=== PATIENT | male | born 1960 | race Caucasian/White ===

== ENCOUNTER 2019-05-21 21:00 | Emergency (ER) | payer OTHER ==
[2019-05-21 22:19] LABS: Basophils % 0.4 % (0-1.3); Lymphocytes % 33.5 % (15.3-44.8); MPV 12.1 fL (7.6-11.3); RBC Red Blood Cell Count 4.25 M/uL (4.33-5.43)
[2019-05-21 22:34] LABS: Potassium 4.3 mmol/L (3.5-5.1)
[2019-05-21] MEDS ORDERED: levoFLOXacin 750 MG TAB ONE (23:49)
--- NOTE | 2019-05-22 00:01 | EDPHYS ---
Physician Documentation [facility] Name: Jordon Smith Age: 59 yrs Sex: Male : 1960 Arrival Date: 05/21/2019 Time: 21:03 Bed 30 Private MD: ED Physician Jefry Juarez HPI: 05/22 02:32 This 59 yrs old Male presents to ER via Ambulatory with complaints of Foot gs Swelling-Diabetic. 02:32 The patient presents with swelling. The complaints affect the dorsum of right foot. gs Onset: The symptoms/episode began/occurred gradually, 5 day(s) ago. Modifying factors: the symptoms are aggravated by nothing. Associated signs and symptoms: Pertinent positives: warmth, Pertinent negatives fever. Severity of symptoms: At their worst the symptoms were mild, in the emergency department the symptoms are unchanged. small callous ulcer r great toe no drainage. Historical: - Allergies: 05/21 21:12 No Known Allergies; la1 - PMHx: 21:12 Diabetes - NIDDM; Hypertension; la1 - Immunization history:: Adult Immunizations up to date. - Social history:: Smoking status: Patient uses tobacco products, smokes one-half pack cigarettes per day. - Ebola Screening: : No symptoms or risks identified at this time. ROS: 05/22 02:32 All other systems are negative. gs Exam: 02:32 Head/Face: Normocephalic, atraumatic. Eyes: Pupils equal round and reactive to light, gs extra-ocular motions intact. Lids and lashes normal. Conjunctiva and sclera are non-icteric and not injected. Cornea within normal limits. Periorbital areas with no swelling, redness, or edema. ENT: Nares patent. No nasal discharge, no septal abnormalities noted. Tympanic membranes are normal and external auditory canals are clear. Oropharynx with no redness, swelling, or masses, exudates, or evidence of obstruction, uvula midline. Mucous membranes moist. Neck: Trachea midline, no thyromegaly or masses palpated, and no cervical lymphadenopathy. Supple, full range of motion without nuchal rigidity, or vertebral point tenderness. No Meningismus. Chest/axilla: Normal chest wall appearance and motion. Nontender with no deformity. No lesions are appreciated. Cardiovascular: Regular rate and rhythm with a normal S1 and S2. No gallops, murmurs, or rubs. Normal PMI, no JVD. No pulse deficits. Respiratory: Lungs have equal breath sounds bilaterally, clear to auscultation and percussion. No rales, rhonchi or wheezes noted. No increased work of breathing, no retractions or nasal flaring. Abdomen/GI: Soft, non-tender, with normal bowel sounds. No distension or tympany. No guarding or rebound. No evidence of tenderness throughout. Back: No spinal tenderness. No costovertebral tenderness. Full range of motion. MS/ Extremity: Pulses equal, no cyanosis. Neurovascular intact. Full, normal range of motion. Neuro: Awake and alert, GCS 15, oriented to person, place, time, and situation. Cranial nerves II-XII grossly intact. Motor strength 5/5 in all extremities. Sensory grossly intact. Cerebellar exam normal. Normal gait. 02:32 Constitutional: The patient appears alert, awake. 02:32 Musculoskeletal/extremity: Extremities: noted in the anterior aspect of right ankle: swelling, noted in the plantar aspect of right first toe: small callous and ulcer no drainage, Circulation is intact in all extremities. 02:32 Skin: cellulitis, that is minimal, on the anterior aspect of right ankle and dorsum of right foot. Vital Signs: 05/21 21:12 BP 117 / 59; Pulse 89; Resp 16; Temp 97.4; Pulse Ox 98% on R/A; Weight 102.06 kg; la1 Height 6 ft. 0 in. (182.88 cm); 22:52 BP 106 / 65; Pulse 91; Resp 18; Pulse Ox 100% ; ad1 23:55 BP 109 / 61; Pulse 77; Resp 16; Pulse Ox 99% ; ad1 21:12 Body Mass Index 30.52 (102.06 kg, 182.88 cm) la1 MDM: 21:52 Patient medically screened. 05/22 02:32 Differential diagnosis: cellulitis,osteo,diabetic ulcer. Data reviewed: vital signs, gs nurses notes. Data reviewed: lab test result(s), radiologic studies. Counseling: I had a detailed discussion with the patient and/or guardian regarding: the historical points, exam findings, and any diagnostic results supporting the discharge/admit diagnosis, the need for outpatient follow up. Response to treatment: the patient's symptoms have mildly improved after treatment, and as a result, I will discharge patient. 05/21 21:52 Order name: CBC with Diff 05/21 21:52 Order name: Basic Metabolic Panel; Complete Time: 23:25 gs 05/21 21:52 Order name: Blood Culture* gs 05/21 21:52 Order name: Foot Right 3 View XRAY gs 05/21 21:56 Order name: CBC with Automated Diff; Complete Time: 23:25 EDMS 05/21 23:59 Order name: Wound dressing; Complete Time: 00:28 Administered Medications: 05/21 23:55 Drug: LevaQUIN 750 mg Route: PO; ad1 05/22 00:32 Follow up: Response: No adverse reaction ad1 Disposition: 05/21/19 23:58 Discharged to Home. Impression: Type 2 diabetes mellitus with foot ulcer, Cellulitis, unspecified. - Condition is Stable. - Discharge Instructions: Cellulitis, Adult, Type 2 Diabetes Mellitus, Diagnosis, Adult, Diabetes and Foot Care. - Prescriptions for Keflex 500 mg Oral Capsule - take 1 capsule by ORAL route every 12 hours for 7 days; 14 capsule. Levaquin 500 mg Oral Tablet - take 1 tablet by ORAL route once daily for 7 days; 7 tablet. - Work release form, Medication Reconciliation Form, Thank You Letter, Antibiotic Education, Prescription Opioid Use form. - Follow up: Private Physician; When: 1 - 2 days; Reason: Re-evaluation by your physician. Follow up: Jose Logan DPM; When: 2 - 3 days; Reason: Re-evaluation by your physician. Signatures: Dispatcher [employer] EDMS Olga Tellez RN RN ad1 Barry Cervantes RN RN la1 Jefry Juarez MD MD Corrections: (The following items were deleted from the chart) 00:35 05/21 23:58 05/21/2019 23:58 Discharged to Home. Impression: Type 2 diabetes mellitus ad1 with foot ulcer; Cellulitis, unspecified. Condition is Stable. Forms are Medication Reconciliation Form, Thank You Letter, Antibiotic Education, Prescription Opioid Use. Follow up: Private Physician; When: 1 - 2 days; Reason: Re-evaluation by your physician. Follow up: Jose Logan; When: 2 - 3 days; Reason: Re-evaluation by your physician.
--- NOTE | 2019-05-22 00:01 | ER ---
Nurse's Notes [facility] Name: Jordon Smith Age: 59 yrs Sex: Male : 1960 Arrival Date: 05/21/2019 Time: 21:03 Bed 30 Private MD: Diagnosis: Type 2 diabetes mellitus with foot ulcer;Cellulitis, unspecified Presentation: 05/21 21:12 Presenting complaint: Patient states: Area of redness and swelling to my right big toe la1 for the last week, worse the last couple days. Transition of care: patient was not received from another setting of care. Onset of symptoms was May 21, 2019. Risk Assessment: Do you want to hurt yourself or someone else? Patient reports no desire to harm self or others. Initial Sepsis Screen: Does the patient meet any 2 criteria? No. Patient's initial sepsis screen is negative. Does the patient have a suspected source of infection? No. Patient's initial sepsis screen is negative. Care prior to arrival: None. 21:12 Method Of Arrival: Ambulatory la1 21:12 Acuity: ADRY 3 la1 Historical: - Allergies: 21:12 No Known Allergies; la1 - PMHx: 21:12 Diabetes - NIDDM; Hypertension; la1 - Immunization history:: Adult Immunizations up to date. - Social history:: Smoking status: Patient uses tobacco products, smokes one-half pack cigarettes per day. - Ebola Screening: : No symptoms or risks identified at this time. Screenin:48 Abuse screen: Denies threats or abuse. Nutritional screening: No deficits noted. la1 Tuberculosis screening: No symptoms or risk factors identified. Fall Risk None identified. Assessment: 22:47 General: Appears in no apparent distress. Behavior is calm, cooperative. Pain: la1 Complains of pain in instep of right foot and medial aspect of right toes. Neuro: Level of Consciousness is awake, alert, obeys commands, Oriented to person, place, time, situation. Cardiovascular: Capillary refill < 3 seconds Patient's skin is warm and dry. Respiratory: Airway is patent Respiratory effort is even, unlabored, Respiratory pattern is regular, symmetrical. GI: No signs and/or symptoms were reported involving the gastrointestinal system. : No signs and/or symptoms were reported regarding the genitourinary system. Derm: redness noted to medial aspect of right great toe extending to medial aspect of foot. 23:55 Reassessment: Patient appears in no apparent distress at this time. No changes from ad1 previously documented assessment. Patient and/or family updated on plan of care and expected duration. Pain level reassessed. Patient is alert, oriented x 3, equal unlabored respirations, skin warm/dry/pink. Vital Signs: 21:12 BP 117 / 59; Pulse 89; Resp 16; Temp 97.4; Pulse Ox 98% on R/A; Weight 102.06 kg; la1 Height 6 ft. 0 in. (182.88 cm); 22:52 BP 106 / 65; Pulse 91; Resp 18; Pulse Ox 100% ; ad1 23:55 BP 109 / 61; Pulse 77; Resp 16; Pulse Ox 99% ; ad1 21:12 Body Mass Index 30.52 (102.06 kg, 182.88 cm) la1 ED Course: 21:03 Patient arrived in ED. ds1 21:12 Arm band placed on right wrist. la1 21:13 Triage completed. la1 21:27 Jefry Juarez MD is Attending Physician. gs 22:15 Inserted saline lock: 20 gauge in left antecubital area, using aseptic technique. Blood la1 collected. 22:30 Second set of blood cultures drawn by me. jp3 22:49 Call light in reach. la1 23:54 Jose Logan DPM is Referral Physician. 05/22 00:32 No provider procedures requiring assistance completed. IV discontinued, intact, ad1 bleeding controlled, No redness/swelling at site. Pressure dressing applied. Administered Medications: 05/21 23:55 Drug: LevaQUIN 750 mg Route: PO; ad1 05/22 00:32 Follow up: Response: No adverse reaction ad1 Outcome: 05/21 23:58 Discharge ordered by . 05/22 00:33 Discharged to home ambulatory. ad1 Condition: stable Discharge instructions given to patient, Instructed on discharge instructions, follow up and referral plans. medication usage, Demonstrated understanding of instructions, follow-up care, medications, wound care, Prescriptions given X 2. 00:35 Patient left the ED. ad1 Signatures: Martha Garcia ds1 Olga Tellez RN RN ad1 Barry Cervantes RN RN la1 Juarez, Jefry, MD MD gs Pisarski, Amrio jp3
--- NOTE | 2019-05-22 09:13 | RAD REPORT ---
EXAM DESCRIPTION: RAD - Foot Right 3 View - 05/21/2019 10:28 pm CLINICAL HISTORY: Right foot pain, pain and swelling near the first toe COMPARISON: None. FINDINGS: No fracture, dislocation or periosteal reaction. IP joint degenerative changes are present . There is degenerative change at the first MTP joint as well. Patient has a large plantar spur. Wound is present along the medial and plantar surface of the first toe near the IP joint. The degener ative changes present do not include an the erosive or destructive component. No radiographic evidenc e for osteomyelitis. Degenerative changes are present minimally in the midfoot. No air or foreign body in the soft tissues. IMPRESSION: No abnormal air or foreign body seen at the soft tissue wound near the IP joint of the f irst toe. IP joint degenerative change present at the first toe and elsewhere in the phalanges. No bone destruction to suggest osteomyelitis. Bone infection can exist prior to radiographic evidence of destruction.
== END 2019-05-22 00:35 | disposition home or self-care (01) ==
LOC: ER 21:00
DX: L03.115 Cellulitis of right lower limb (principal); I10 Essential (primary) hypertension; F17.210 Nicotine dependence, cigarettes, uncomplicated
CPT/HCPCS: 36415; 80048; 85025; 87040; 99284

== ENCOUNTER 2021-03-10 09:31 | Emergency (ER) | payer OTHER ==
[2021-03-10] MEDS ORDERED: MORPHINE 4 MG/ML SYR ONE ×2 (10:47→14:20)
[2021-03-10] MEDS ORDERED: ONDANSETRON 4 MG (ODT) TAB ONE (10:47)
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
--- NOTE | 2021-03-10 10:56 | RAD REPORT ---
EXAM DESCRIPTION: RAD - Wrist Left 3 View - 03/10/2021 10:40 am CLINICAL HISTORY: fall COMPARISON: No comparisons FINDINGS: Lateral view shows a small 5 mm fracture fragment along the dorsal margin of the carpal vidal jaylin. This is a typical appearance for a triquetrum fracture. No other fracture changes are seen. Ther e is no dislocation or periosteal reaction. No pathologic bone changes seen. Soft tissue swelling is present over the hand and wrist. No foreign body IMPRESSION: Small 5 mm triquetrum fracture fragment seen dorsal margin of the carpal bones.
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
--- NOTE | 2021-03-10 14:09 | EDPHYS ---
Physician Documentation [facility] Name: Jordon Smith Age: 60 yrs Sex: Male : 1960 Arrival Date: 03/10/2021 Time: 09:35 Bed 19 Private MD: ED Physician Ra Merino HPI: 03/10 10:06 This 60 yrs old Male presents to ER via Ambulatory with complaints of Fall jmm Injury, Shoulder Injury, Wrist Injury. 10:06 Details of fall: The patient fell from seated position, gator utility vehicle. Onset: jmm The symptoms/episode began/occurred acutely, 2 day(s) ago. The patient has not experienced similar symptoms in the past. This is a 60 year old male with a history of DM, HTN, that presents to the ED with complaints of left shoulder, elbow, wrist pain, and right hip pain. Patient states he fell off a utility vehicle. A speaker then fell on his right hip. Patient states he hit his head, but denies loc, vomiting, or neck pain. Historical: - Allergies: 09:53 No Known Allergies; hb - PMHx: 09:53 Diabetes - NIDDM; Hypertension; hb ROS: 10:06 Constitutional: Negative for fever, chills, and weight loss, Cardiovascular: Negative jmm for chest pain, palpitations, and edema, Respiratory: Negative for shortness of breath, cough, wheezing, and pleuritic chest pain. 10:06 MS/extremity: Positive for injury or acute deformity. 10:06 All other systems are negative. Exam: 10:06 Constitutional: This is a well developed, well nourished patient who is awake, alert, jmm and in no acute distress. Head/Face: atraumatic. Eyes: EOMI, no conjunctival erythema appreciated ENT: Moist Mucus Membranes 10:06 Neck: C-spine: appears grossly normal. 10:14 Neck: Trachea midline, Supple Chest/axilla: Normal chest wall appearance and motion. jmm Cardiovascular: Regular rate and rhythm. 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 right hip ttp, painful flexion. 10:14 Skin: Appearance: Color: normal in color. 10:14 Neuro: Orientation: is normal, Mentation: is normal, Memory: is normal. 10:14 Psych: Behavior/mood is pleasant, cooperative. Vital Signs: 09:49 BP 139 / 96; Pulse 113; Resp 16; Temp 97.8; Pulse Ox 100% on R/A; Weight 104.33 kg; hb Height 6 ft. (182.88 cm); Pain 9/10; 13:34 BP 143 / 77; Pulse 104; Resp 19; Pulse Ox 99% ; rb3 14:20 BP 139 / 79; Pulse 89; Resp 19; Pulse Ox 99% ; rb3 09:49 Body Mass Index 31.19 (104.33 kg, 182.88 cm) hb Debi Coma Score: 10:00 Eye Response: spontaneous(4). Verbal Response: oriented(5). Motor Response: obeys rb3 commands(6). Total: 15. Trauma Score (Adult): 10:00 Eye Response: spontaneous(1); Verbal Response: oriented(1); Motor Response: obeys rb3 commands(2); Systolic BP: > 89 mm Hg(4); Respiratory Rate: 10 to 29 per min(4); [place] Score: 15; Trauma Score: 12 Procedures: 13:43 Splinting: Splint applied to left arm using sling, sugartong. applied by tech. Examined jm by me, post splint application: neurovascular intact, 2+ distal pulses palpable, brisk capillary refill noted, Patient tolerated well. MDM: 10:14 Patient medically screened. [facility] 14:02 Data reviewed: vital signs, nurses notes. ED course: NARX score = 110. [facility] 03/10 10:06 Order name: Chest Single View XRAY; Complete Time: 11: [facility] 03/10 10:06 Order name: Shoulder Left (2 View) XRAY; Complete Time: 11: [facility] 03/10 10:06 Order name: Elbow Left 3 View XRAY; Complete Time: 11: [facility] 03/10 10:06 Order name: Wrist Left (3 View) XRAY; Complete Time: 11: [facility] 03/10 10:06 Order name: Pelvis XRAY; Complete Time: 11: [facility] 03/10 10:06 Order name: Hip Right 2 View XRAY; Complete Time: 11:07 [facility] 03/10 11:11 Order name: Misc. Order: wound care; Complete Time: 13:36 [facility] 03/10 11:43 Order name: Misc. Order: abx ointment, wet to dry; Complete Time: 13:36 [facility] 03/10 11:43 Order name: Sugar Tong Forearm Splint; Complete Time: 13:35 [facility] 03/10 12:38 Order name: Sling; Complete Time: 13:35 [facility] Administered Medications: 10:58 Drug: morphine 4 mg Route: IM; Site: right deltoid; rb3 11:30 Follow up: Response: No adverse reaction; Pain is decreased rb3 10:58 Drug: Ondansetron 4 mg Route: PO; rb3 11:12 Follow up: Response: No adverse reaction rb3 14:03 Drug: morphine 4 mg Route: IM; Site: right deltoid; rb3 Disposition: 03/11 07:23 Co-signature as Attending Physician, Ra Merino MD I agree with the assessment and kiarra plan of care. Disposition: 03/10/21 14:08 Discharged to Home. Impression: Radial Head Fracture, Left Elbow Abrasion, Nondisplaced fracture of triquetrum [cuneiform] bone, left wrist. - Condition is Stable. - Discharge Instructions: Abrasion, Radial Head Fracture, Wrist Fracture Treated With Immobilization, [id number]. - Prescriptions for Tylenol- Codeine #3 300-30 mg Oral Tablet - take 1 tablet by ORAL route every 4-6 hours As needed; 20 tablet. Bactrim DS 800- 160 mg Oral Tablet - take 1 tablet by ORAL route every 12 hours for 10 days; 20 tablet. - Medication Reconciliation Form, Thank You Letter, Antibiotic Education, Prescription Opioid Use form. - Follow up: Private Physician; When: 2 - 3 days; Reason: Recheck today's complaints, Continuance of care, Re-evaluation by your physician. Signatures: Dispatcher [employer] Ra De MD MD cha Mickail, Joel, PA PA jmm Baxter, Heather, RN RN hb Barber, Rebecca, RN RN rb3 Corrections: (The following items were deleted from the chart) 05/30 14:33 14:08 03/10/2021 14:08 Discharged to Home. Impression: Radial Head Fracture; Left Elbow rb3 Abrasion; Nondisplaced fracture of triquetrum [cuneiform] bone, left wrist. Condition is Stable. Forms are Medication Reconciliation Form, Thank You Letter, Antibiotic Education, Prescription Opioid Use. Follow up: Private Physician; When: 2 - 3 days; Reason: Recheck today's complaints, Continuance of care, Re-evaluation by your physician. riccardo
[2021-03-10 14:38] VITALS: TEMP 97.8
[2021-03-10 14:39] VITALS: BP 143/77; O2SAT 99
== END 2021-03-10 14:33 | disposition home or self-care (01) ==
LOC: ER 09:31
PROC: 2W3DX1Z Immobilization of Left Lower Arm using Splint (ICD-10-PCS; principal; 2021-03-10)
DX: S52.122A Displaced fracture of head of left radius, initial encounter for closed fracture (principal); S62.115A Nondisplaced fracture of triquetrum [cuneiform] bone, left wrist, initial encounter for closed fracture; V87.8XXA Person injured in other specified noncollision transport accidents involving motor vehicle (traffic), initial encounter; I10 Essential (primary) hypertension
CPT/HCPCS: 71045; 72170; 96372; 99284

== ENCOUNTER 2022-08-30 10:15 | Observation (INO) | payer BC, SELFPAY ==
[2022-08-30] MEDS ORDERED: NITROGLYCERIN 0.4 MG/TAB SL ONE (10:34)
[2022-08-30 10:51] LABS: Absolute Lymphocytes (CBC) 1.6 K/uL (0.7-4.9); Hematocrit 36.8 % (39.6-49.0); Lymphocytes % 18.7 % (15.3-44.8); MCV 106.7 fL (80-100); MPV 10.3 fL (7.6-11.3); RBC Red Blood Cell Count 3.45 M/uL (4.33-5.43)
[2022-08-30] MEDS ORDERED: FENTANYL CITR 100 MCG/2 ML ONE (10:52)
[2022-08-30 10:59] LABS: Potassium 4.1 mmol/L (3.5-5.1); Troponin High Sensitivity 6.9 pg/mL (<58.9)
[2022-08-30 12:04] LABS: Platelet Estimate ADEQ; White Blood Cell Scan OK (OK)
[2022-08-30 12:05] LABS: Anisocytosis 1+; Blood Morphology Comment NOTED (NOT SEEN); Hypochromasia 1+; Macrocytosis 1+
[2022-08-30 12:06] LABS: Stomatocytes 1+
--- NOTE | 2022-08-30 12:43 | RAD REPORT ---
EXAM DESCRIPTION: CT - Chest For Pe Angio - 08/30/2022 12:04 pm CLINICAL HISTORY: Chest pain COMPARISON: 2020 TECHNIQUE: Dynamically enhanced axial 3 mm thick images of the chest were obtained during administra tion of <100> mL Isovue 370 IV contrast. Coronal and oblique reconstruction images were generated and reviewed. Exam utilizes a protocol for optimal evaluation of pulmonary arterial tree. Maximum intensity projections 3D imaging was utilized All CT scans are performed using dose optimization technique as appropriate and may include automated exposure control or mA/KV adjustment according to patient size. FINDINGS: A pulmonary embolus is not seen. A thoracic aortic aneurysm is not noted. A pleural effusion is not seen. A pericardial effusion is not seen. Mildly displaced fracture anterior left seventh rib. Nondisplaced fracture left eighth rib. Mildly di splaced fracture left lateral ninth rib. Moderate displace fracture left posterior tenth rib. Nondisp laced fracture posterior right tenth rib No pneumothorax. 8 millimeter right lower lobe nodule unchanged. 5 millimeter right lower lobe nodule is unchanged. A 7 millimeter right lower lobe calcified nodule IMPRESSION: Negative for a pulmonary embolism. Multiple left rib fractures. Most are subacute. The moderately displaced fracture tenth posterior lef t rib may be acute Stable right lung nodules. Follow-up CT chest in 6 months recommended
--- NOTE | 2022-08-30 12:46 | RAD REPORT ---
EXAM DESCRIPTION: CT - Abdomen Wo Contrast - 08/30/2022 12:04 pm CLINICAL HISTORY: Abdominal pain COMPARISON: 2020 TECHNIQUE: Computed axial tomography from the diaphragm to the iliac crest was obtained. Oral contra st was given. IV contrast was not requested. All CT scans are performed using dose optimization technique as appropriate and may include automated exposure control or mA/KV adjustment according to patient size. FINDINGS: The evaluation of solid organs and vessels is limited secondary to the lack of IV contrast administration. Fatty liver. Cirrhosis is suspected. Cholelithiasis. Gallbladder wall not thickened The spleen, pancreas, adrenals and kidneys are unremarkable. No ascites. No ascites is seen. The visualized bowel caliber and wall thickness is normal IMPRESSION: Cholelithiasis Fatty liver. Cirrhosis suspected
--- NOTE | 2022-08-30 12:55 | RAD REPORT ---
EXAM DESCRIPTION: [facility] Single View08/30/2022 12:15 pm CLINICAL HISTORY: Chest pain COMPARISON: 2020 FINDINGS: Patient's known left rib fractures are not clearly visualized on this examination. The lungs appear clear of acute infiltrate. The heart is normal size
--- NOTE | 2022-08-30 14:46 | ER ---
Nurse's Notes [facility] Name: Jordon Smith Age: 62 yrs Sex: Male : 1960 Arrival Date: 08/30/2022 Time: 10:16 Bed 7 Private MD: Diagnosis: Chest pain, unspecified Presentation: 08/30 10:35 Chief complaint: Patient states: bilateral chest pain started at 0430 this morning. Pt mb9 states it radiates to jaw and back and "hurts when I breathe". Coronavirus screen: Client denies travel out of the [place] in the last 14 days. Ebola Screen: No symptoms or risks identified at this time. Initial Sepsis Screen: Does the patient meet any 2 criteria? No. Patient's initial sepsis screen is negative. Does the patient have a suspected source of infection? No. Patient's initial sepsis screen is negative. Risk Assessment: Do you want to hurt yourself or someone else? Patient reports no desire to harm self or others. Onset of symptoms was August 30, 2022. 10:35 Method Of Arrival: Ambulatory mb9 10:35 Acuity: ADRY 2 mb9 Historical: - Allergies: 10:37 No Known Allergies; mb9 - Home Meds: 11:10 metformin 750 mg Oral Tb24 twice a day [Active]; losartan 100 mg oral tab 1 tab once aa5 daily [Active]; furosemide 40 mg Oral tab 1 tab once daily [Active]; pantoprazole 40 mg oral grps 1 packet once daily [Active]; escitalopram oxalate 20 mg oral tab 1 tab once daily [Active]; alprazolam 1 mg Oral Tb24 1 tab once daily [Active]; tramadol 50 mg oral tab PRN [Active]; rifampin 300 mg Oral cap 2 times per day [Active]; multivitamin oral [Active]; aspirin 81 mg Oral cap 1 cap once daily [Active]; - PMHx: 10:37 Diabetes - NIDDM; Hypertension; Seizure; cardiac arrest; Depressive disorder; mb9 - PSHx: 10:37 Tonsillectomy; left hip; prostatectomy; mb9 - Immunization history:: Adult Immunizations up to date. - Social history:: Smoking status: Patient reports the use of cigarette tobacco products, smokes one pack cigarettes per day. Patient uses alcohol, on a daily basis. - Family history:: not pertinent. Screenin:20 Abuse screen: Denies threats or abuse. Nutritional screening: No deficits noted. mb9 Tuberculosis screening: No symptoms or risk factors identified. Fall Risk None identified. Assessment: 10:47 General: Appears uncomfortable, Behavior is calm, cooperative, appropriate for age. mb9 Pain: Complains of pain in back and chest and jaw Pain radiates to back and jaw Pain currently is 9 out of 10 on a pain scale. Quality of pain is described as stabbing, Pain began suddenly, Aggravated by increased activity. Neuro: Whittaker Agitation-Sedation Scale (RASS): 0 - Alert and Calm Level of Consciousness is awake, alert, obeys commands, Oriented to person, place, time, situation, Appropriate for age. Cardiovascular: Reports chest pain, shortness of breath, Heart tones S1 S2 present Rhythm is sinus tachycardia. Respiratory: Airway is patent Respiratory effort is even, unlabored, Respiratory pattern is regular, symmetrical, Breath sounds are clear bilaterally. GI: Abdomen is round Bowel sounds present X 4 quads. Abd is soft and non tender X 4 quads. Reports lower abdominal pain, nausea. : No signs and/or symptoms were reported regarding the genitourinary system. EENT: No signs and/or symptoms were reported regarding the EENT system. Derm: Skin is intact, Skin is dry, Skin is pale, Skin temperature is cool. Musculoskeletal: Range of motion: intact in all extremities. 11:35 General: Appears in no apparent distress. comfortable, Behavior is calm, cooperative, mb9 appropriate for age. Pain: Denies pain. Neuro: Level of Consciousness is awake, alert, obeys commands, Oriented to person, place, time, situation, Appropriate for age. Cardiovascular: Rhythm is sinus tachycardia. Respiratory: Airway is patent. Derm: Skin is pink, warm \\T\\ dry. 12:13 Reassessment: Dr. Serrano notified. Pain: Pain currently is 9 out of 10 on a pain mb9 scale. Quality of pain is described as stabbing. 13:30 Reassessment: No changes from previously documented assessment. mb9 14:54 General: Appears in no apparent distress. comfortable, Behavior is calm, cooperative, mb9 appropriate for age. Pain: Complains of pain in chest. Neuro: Level of Consciousness is awake, alert, obeys commands, Oriented to person, place, time, situation, Appropriate for age. Cardiovascular: Rhythm is sinus tachycardia. Respiratory: Airway is patent. GI: Reports diarrhea. 16:34 General: Appears in no apparent distress. comfortable, Behavior is calm, cooperative, mb9 appropriate for age. Pain: Complains of pain in chest. Neuro: Level of Consciousness is awake, alert, obeys commands. Cardiovascular: Rhythm is sinus tachycardia. Respiratory: Airway is patent Respiratory effort is even, unlabored, Respiratory pattern is regular, symmetrical. 16:34 Neuro: Reports headache. mb9 16:34 GI: Reports diarrhea. mb9 16:52 Reassessment: report given to admitting nurse SUPRIYA Roger. mb9 Vital Signs: 10:35 BP 140 / 71; Pulse 122; Resp 15; Temp 97.8(O); Pulse Ox 100% on R/A; Weight 97.07 kg; mb9 Height 6 ft. 0 in. (182.88 cm); Pain 9/10; 10:44 BP 94 / 56; Pulse 127; Resp 16; Pulse Ox 100% on R/A; mb9 11:34 BP 101 / 65; Pulse 119; Resp 22; Pulse Ox 100% on R/A; mb9 13:03 BP 109 / 61; Pulse 113; Resp 24; Pulse Ox 100% ; mb9 14:41 BP 101 / 54; Pulse 107; Resp 20; Pulse Ox 98% on R/A; mb9 16:36 BP 108 / 51; Pulse 112; Resp 20; Pulse Ox 100% on R/A; mb9 10:35 Body Mass Index 29.02 (97.07 kg, 182.88 cm) mb9 ED Course: 10:16 Patient arrived in ED. as 10:18 Brian Serrano MD is Attending Physician. rt 10:19 Beatriz Paredes RN is Primary Nurse. mb9 10:20 Arm band placed on. mb9 10:20 Placed in gown. Bed in low position. Call light in reach. Side rails up X 1. Client mb9 placed on continuous cardiac and pulse oximetry monitoring. NIBP monitoring applied. traffic monitor specialist on. 10:30 EKG done, by ED staff, reviewed by Brian Serrano MD. mb9 10:32 Initial lab(s) drawn, by mt, sent to lab. Inserted saline lock: 20 gauge in right aa5 antecubital area, using aseptic technique. Blood collected. 10:37 Triage completed. mb9 12:06 CT Chest For PE Angio In Process Unspecified. EDMS 12:06 Abdomen Wo Contrast In Process Unspecified. EDMS 12:17 XRAY Chest (1 view) In Process Unspecified. EDMS 14:45 Woodrow Alejandro MD is Hospitalizing Provider. rt 14:56 No provider procedures requiring assistance completed. Patient maintains SpO2 mb9 saturation greater than 95% on room air. 15:04 SARS-COV-2 RT PCR Sent. mb9 16:53 Patient admitted, IV remains in place. mb9 Administered Medications: 10:34 Drug: Nitroglycerin 0.4 mg Route: Sublingual; mb9 10:44 Follow up: BP 94 / 56; Pulse 127 bpm; Resp 16 bpm; Pulse Ox 100% RA; pt states chest mb9 pain is the same. BP 94/56. Second nitro on hold. notified 10:58 Drug: fentaNYL (PF) 50 mcg Route: IVP; Site: right antecubital; mb9 11:35 Follow up: Response: No adverse reaction mb9 Medication: 14:55 VIS not applicable for this client. mb9 Intake: Outcome: 14:46 Decision to Hospitalize by Provider. rt 16:52 Admitted to Tele accompanied by tech, via wheelchair, Report called to SUPRIYA Roger 16:52 Condition: stable 16:52 Discharge instructions given to patient, Instructed on the need for admit, Demonstrated understanding of instructions, follow-up care. 16:53 Patient left the ED. mb9 Signatures: Dispatcher [employer] Kassidy Leahy Audri RN RN [email or web address] Beatriz Paredes RN RN mb9 Brian Serrano MD MD rt Corrections: (The following items were deleted from the chart) 11:14 11:10 Home Meds: Bactrim DS 800-160 mg Oral tab every 12 hours; aaEris aaEris 16:38 16:34 General: Appears in no apparent distress. comfortable, Behavior is calm, mb9 cooperative, appropriate for age, mb9
--- NOTE | 2022-08-30 14:47 | EDPHYS ---
Physician Documentation [facility] Name: Jordon Smith Age: 62 yrs Sex: Male : 1960 Arrival Date: 08/30/2022 Time: 10:16 Bed 7 Private MD: ED Physician Brian Serrano HPI: 08/30 10:33 This 62 yrs old Male presents to ER via Unassigned with complaints of Chest Pain, rt Shortness Of Breath. 10:33 The patient or guardian reports chest pain that is located primarily in the substernal rt area. Onset: acutely, 5 hour(s) ago. The pain radiates to Associated signs and symptoms: Pertinent positives: nausea, shortness of breath. The chest pain is described as aching. Duration: The patient or guardian reports a single episode, that is still ongoing, and worsening. Modifying factors: The symptoms are alleviated by nothing. the symptoms are aggravated by nothing. Severity of pain: At its worst the pain was moderate. Patient presents to the ED with a substernal chest pain rating to the back, jaw starting at about 530. He has not had similar symptoms previously. Denies prior cardiac history. The patient took aspirin to no relief. There is not typically get chest pain like this. Symptoms are moderate severity, no other aggravating alleviating factors. Historical: - Allergies: 10:37 No Known Allergies; mb9 - Home Meds: 11:10 metformin 750 mg Oral Tb24 twice a day [Active]; losartan 100 mg oral tab 1 tab once aa5 daily [Active]; furosemide 40 mg Oral tab 1 tab once daily [Active]; pantoprazole 40 mg oral grps 1 packet once daily [Active]; escitalopram oxalate 20 mg oral tab 1 tab once daily [Active]; alprazolam 1 mg Oral Tb24 1 tab once daily [Active]; tramadol 50 mg oral tab PRN [Active]; rifampin 300 mg Oral cap 2 times per day [Active]; multivitamin oral [Active]; aspirin 81 mg Oral cap 1 cap once daily [Active]; - PMHx: 10:37 Diabetes - NIDDM; Hypertension; Seizure; cardiac arrest; Depressive disorder; mb9 - PSHx: 10:37 Tonsillectomy; left hip; prostatectomy; mb9 - Immunization history:: Adult Immunizations up to date. - Social history:: Smoking status: Patient reports the use of cigarette tobacco products, smokes one pack cigarettes per day. Patient uses alcohol, on a daily basis. - Family history:: not pertinent. ROS: 10:33 Cardiovascular: Positive for chest pain, Negative for edema. rt 10:33 Respiratory: Positive for shortness of breath, Negative for cough. 10:33 Abdomen/GI: Positive for nausea, Negative for abdominal pain. 10:33 Constitutional: Negative for fever, chills, and weight loss, Eyes: Negative for injury, rt pain, redness, and discharge, ENT: Negative for injury, pain, and discharge, MS/Extremity: Negative for injury and deformity. 10:33 Skin: Negative for injury, rash, and discoloration, Neuro: Negative for headache, weakness, numbness, tingling, and seizure, Psych: Negative for depression, anxiety, suicide ideation, homicidal ideation, and hallucinations. 10:33 Back: Positive for 10:33 Back: Exam: 10:33 Constitutional: This is a well developed, well nourished patient who is awake, alert, rt and in no acute distress. Head/Face: Normocephalic, atraumatic. Eyes: Pupils equal round and reactive to light, extra-ocular motions intact. Lids and lashes normal. Conjunctiva and sclera are non-icteric and not injected. Cornea within normal limits. Periorbital areas with no swelling, redness, or edema. ENT: Nares patent. No nasal discharge, no septal abnormalities noted. Tympanic membranes are normal and external auditory canals are clear. Oropharynx with no redness, swelling, or masses, exudates, or evidence of obstruction, uvula midline. Mucous membranes moist. Chest/axilla: Normal chest wall appearance and motion. Nontender with no deformity. No lesions are appreciated. Skin: Warm, dry with normal turgor. Normal color with no rashes, no lesions, and no evidence of cellulitis. MS/ Extremity: Pulses equal, no cyanosis. Neurovascular intact. Full, normal range of motion. Neuro: Awake and alert, GCS 15, oriented to person, place, time, and situation. Cranial nerves II-XII grossly intact. Motor strength 5/5 in all extremities. Sensory grossly intact. Cerebellar exam normal. Normal gait. Psych: Awake, alert, with orientation to person, place and time. Behavior, mood, and affect are within normal limits. 10:33 Neck: Trachea midline, no thyromegaly or masses palpated, and no cervical rt lymphadenopathy. Supple, full range of motion without nuchal rigidity, or vertebral point tenderness. No Meningismus. Cardiovascular: Regular rate and rhythm with a normal S1 and S2. No gallops, murmurs, or rubs. Normal PMI, no JVD. No pulse deficits. Respiratory: Lungs have equal breath sounds bilaterally, clear to auscultation and percussion. No rales, rhonchi or wheezes noted. No increased work of breathing, no retractions or nasal flaring. Abdomen/GI: Soft, non-tender, with normal bowel sounds. No distension or tympany. No guarding or rebound. No evidence of tenderness throughout. Vital Signs: 10:35 BP 140 / 71; Pulse 122; Resp 15; Temp 97.8(O); Pulse Ox 100% on R/A; Weight 97.07 kg; mb9 Height 6 ft. 0 in. (182.88 cm); Pain 9/10; 10:44 BP 94 / 56; Pulse 127; Resp 16; Pulse Ox 100% on R/A; mb9 11:34 BP 101 / 65; Pulse 119; Resp 22; Pulse Ox 100% on R/A; mb9 13:03 BP 109 / 61; Pulse 113; Resp 24; Pulse Ox 100% ; mb9 14:41 BP 101 / 54; Pulse 107; Resp 20; Pulse Ox 98% on R/A; mb9 16:36 BP 108 / 51; Pulse 112; Resp 20; Pulse Ox 100% on R/A; mb9 10:35 Body Mass Index 29.02 (97.07 kg, 182.88 cm) mb9 MDM: 10:22 Patient medically screened. rt 14:55 Differential diagnosis: acute myocardial infarction, acute pericarditis, coronary rt artery disease chest wall pain, congestive heart failure pneumonia, pneumothorax, pulmonary embolus. HEART Score: History: Moderately Suspicious (1), ECG: Non specific repolarization disturbance / LBTB / PM (1), Age: > 45 and < 65 years (1), Risk Factors: 1 or 2 risk factors (1), Troponin: < or = 1 x Normal Limit (0), Total Score = 4. Data reviewed: vital signs, nurses notes, lab test result(s), EKG, radiologic studies. ED course: Patient presents to the ED with chest pain. Noted to have tachycardia, elevated D-dimer. CTPA negative for pulmonary embolism. Patient with continued pain, will admit for further care.. 08/30 10:30 Order name: Basic Metabolic Panel; Complete Time: 11:12 rt 08/30 10:30 Order name: CBC with Diff; Complete Time: 12:09 rt 08/30 10:30 Order name: NT PRO-BNP; Complete Time: 11:12 rt 08/30 10:30 Order name: Troponin HS; Complete Time: 11:12 rt 08/30 10:37 Order name: D-Dimer; Complete Time: 11:12 rt 08/30 11:03 Order name: CBC Smear Scan; Complete Time: 12:09 EDMS 08/30 10:30 Order name: XRAY Chest (1 view); Complete Time: 12:58 rt 08/30 11:23 Order name: CT Chest For PE Angio; Complete Time: 12:58 rt 08/30 14:49 Order name: SARS-COV-2 RT PCR mb9 08/30 15:27 Order name: Lipid Profile [facility] 08/30 15:27 Order name: Lipid Profile [facility] 08/30 15:33 Order name: Troponin High Sensitivity [facility] 08/30 15:34 Order name: Hemoglobin A1c [facility] 08/30 15:34 Order name: Thyroid Stimulating Hormone [facility] 08/30 10:30 Order name: EKG; Complete Time: 10:30 rt 08/30 10:30 Order name: Cardiac monitoring; Complete Time: 10:30 rt 08/30 10:30 Order name: EKG - Nurse/Tech; Complete Time: 10:30 rt 08/30 10:30 Order name: IV Saline Lock; Complete Time: 10:30 rt 08/30 10:30 Order name: Labs collected and sent; Complete Time: 10:30 rt 08/30 10:30 Order name: O2 Per Protocol; Complete Time: 10:30 rt 08/30 10:30 Order name: O2 Sat Monitoring; Complete Time: 10:30 rt 08/30 11:59 Order name: Abdomen Wo Contrast; Complete Time: 12:58 EDMS 08/30 15:27 Order name: Heart Healthy EDMS EC:37 Rate is 116 beats/min. Rhythm is regular, Sinus tachycardia with No ectopy. QRS Eckert is rt Normal. CO interval is normal. Clinical impression: Sinus tachycardia. Interpreted by me. Administered Medications: 10:34 Drug: Nitroglycerin 0.4 mg Route: Sublingual; mb9 10:44 Follow up: BP 94 / 56; Pulse 127 bpm; Resp 16 bpm; Pulse Ox 100% RA; pt states chest mb9 pain is the same. BP 94/56. Second nitro on hold. notified 10:58 Drug: fentaNYL (PF) 50 mcg Route: IVP; Site: right antecubital; mb9 11:35 Follow up: Response: No adverse reaction mb9 Disposition Summary: 08/30/22 14:46 Hospitalization Ordered Hospitalization Status: Observation rt Provider: Woodrow Alejandro rt Location: Telemetry/MedSurg (observation) rt Condition: Stable rt Problem: new rt Symptoms: are unchanged rt Bed/Room Type: Standard rt Room Assignment: 403(08/30/22 16:26) eb Diagnosis - Chest pain, unspecified rt Forms: - Medication Reconciliation Form rt - SBAR form rt Signatures: Dispatcher [employer] EDNancy Johnson, RN RN aa5 Jovita Francis Mary Beth RN RN mb9 Brian Serrano MD MD rt Corrections: (The following items were deleted from the chart) 11:14 11:10 Home Meds: Bactrim DS 800-160 mg Oral tab every 12 hours; aa5 aa5 16:26 14:46 rt eb
[2022-08-30] MEDS ORDERED: ACETAMINOPHEN 500 MG TAB PO PRN (15:21)
[2022-08-30] MEDS: ASPIRIN EC 81 MG TAB PO SCH (15:30)
[2022-08-30] MEDS ORDERED: ONDANSETRON 4 MG/2 ML VIAL IV PRN (15:31)
[2022-08-30] MEDS: THIAMINE HCL 100 MG TABLET PO SCH ×2 (16:00→19:56)
[2022-08-30] MEDS: INSULIN -REGULAR HUMAN 50 UNIT/0.5 ML ML SQ SCH ×2 (16:30→20:04)
[2022-08-30] MEDS: chlordiazePOXIDE HCl 5 MG CAP PO SCH ×2 (16:55→19:56)
[2022-08-30] MEDS ORDERED: NITROGLYCERIN 0.4 MG/TAB SL PRN (16:55)
--- NOTE | 2022-08-30 16:56 | P.HP ---
Certification for Inpatient With expected LOS: <2 Midnights Practitioner: I am a practitioner with admitting privileges, knowledge of patient current condition, hospital course, and medical plan of care. Services: Services provided to patient in accordance with Admission requirements found in Title 42 Section 412.3 of the Code of Federal Regulations Patient History Date of Service: 08/30/22 Reason for admission: Chest pain rule out [place] History of Present Illness: Patient is 62 years of age. To the hospital with chest pain started at 4:30 AM on 08/30 scribed retrosternal severe radiating to the neck/prior history of coronary artery disease he has a history of cardiac arrest pain is still very persistent at about 7 his EKG did not show any acute ischemic changes right bundle block as per ER doctor morning was negative denies any exertional chest pain heavy smoker alcoholic Allergies No Known Allergies Allergy (Unverified 08/30/22 15:42) - Past Medical/Surgical History -: HTN -: Prostate Cancer -: NIDDM2 - Social History Alcohol use: Yes Review of Systems 10-point ROS is otherwise unremarkable Physical Examination - Physical Exam General: Alert, Oriented x3 HEENT: Atraumatic Neck: Supple Cardiovascular: No edema, Regular rate/rhythm, Normal S1 S2 Gastrointestinal: Normal bowel sounds, Soft and benign Musculoskeletal: No clubbing, No swelling, No contractures - Studies Laboratory Data (last 24 hrs) 08/30/22 10:32: WBC 8.30, Hgb 12.5 L, Hct 36.8 L, Plt Count 151 L 08/30/22 10:32: Sodium 136, Potassium 4.1, BUN 16, Creatinine 1.20, Glucose 155 H Assessment and Plan - Problems (Diagnosis) (1) Chest pain Current Visit: Yes Status: Acute Plan: Patient is 62 years of age admitted with acute onset of substernal chest pain no EKG changes as per ER physician he does have a right bundle branch block his troponin is negative high risk factors for coronary artery disease plan to admit for observation check his troponin again there is also risk for peptic ulcer disease admitted for pain relief Qualifiers: Chest pain type: unspecified Qualified Code(s): R07.9 - Chest pain, unspecified (2) Alcoholism Current Visit: Yes Status: Acute Plan: Patient is an alcoholic he has cirrhosis of the liver macrocytic anemia prior history of cirrhosis of the liver put him on DT withdrawal protocol - Advance Directives Does patient have a Living Will: No Does patient have a Durable POA for Healthcare: No
[2022-08-30 17:49] VITALS: BMI 29.0
[2022-08-30] MEDS: MORPHINE 2 MG/ML SYR IV PRN ×2 (18:00→22:14)
[2022-08-31] MEDS ORDERED: LORazepam 2 MG/ML VIAL IV ONE (00:48)
[2022-08-31] MEDS: INSULIN -REGULAR HUMAN 50 UNIT/0.5 ML ML SQ SCH ×2 (07:30→11:30)
[2022-08-31] MEDS ORDERED: PANTOPRAZOLE 40MG TABLET PO SCH (07:30)
[2022-08-31] MEDS: THIAMINE HCL 100 MG TABLET PO SCH (07:39)
[2022-08-31] MEDS: chlordiazePOXIDE HCl 5 MG CAP PO SCH ×2 (07:39→12:00)
[2022-08-31] MEDS: ASPIRIN EC 81 MG TAB PO SCH (07:39)
[2022-08-31] MEDS: MORPHINE 2 MG/ML SYR IV PRN (11:50)
--- NOTE | 2022-08-31 12:12 | P.DS ---
Admission Date: 08/30/22 Discharge Date: 08/31/22 Disposition: ROUTINE DISCHARGE Discharge Condition: GOOD Reason for Admission: Chest pain rule out [place] Consultations: 1. Cardiology Hospital Course: DIAGNOSES: # Chest Pain, suspect Musculoskeletal # Traumatic Ground-Level Fall with Multiple Subacute Left-Sided Rib Fractures (~2 months ago) # Hyperglycemia in Type II Diabetes Mellitus # Alcoholic Cirrhosis # History of Prostate Cancer # Hypertension # Right-Sided Pulmonary Nodules HOSPITAL COURSE: Mr. Jordon Smith is a 62 year old male with a past medical history significant for prostate cancer, type II diabetes mellitus, hypertension, and alcoholic cirrhosis who was admitted to the [facility] on 08/30/2022 for chest pain. He was admitted to the Medicine service. Upon further evaluation, he reported right-sided chest pain, which was reproducible to palpation. His EKG was without STEMI criteria. His chest x-ray revealed, "patient's known left rib fractures are not clearly visualized on this examination. The lungs appear clear of acute infiltrate. The heart is normal size." His troponin trend was 6.9 -> 6.6 -> 8.1. His d-dimer returned elevated at 917. His CT chest angiogram revealed, "negative for a pulmonary embolism. Multiple left rib fractures. Most are subacute. The moderately displaced fracture tenth posterior left rib may be acute. Stable right lung nodules. Follow-up CT chest in 6 months recommended." Cardiology was consulted and he was evaluated by Dr. Carolina. Dr. Carolina has cleared him for discharge with an outpatient echocardiogram and nuclear stress test. On 08/31/2022, he was seen on morning rounds and deemed medically stable for discharge. He was discharged with instructions to schedule follow-up appointments with his PCP (Dr. Grover), with Cardiology (Dr. Carolina), and with Pulmonary Medicine (Dr. Alejandro). He was advised to schedule a follow-up CT chest in 3-6 months to follow-up the pulmonary nodule. He as advised on the importance of alcohol cessation. He mentioned that he has an appointment with Dr. Grover on 09/02/2022, and he will discuss this at that appointment. He was given the opportunity to ask questions and reported no further questions. Furthermore, all questions were answered to the best of my ability. A copy of this discharge summary will be sent to the above providers to facilitate continuity of care. Today, I personally spent 25 minutes on his case, of which greater than 50% of the time was spent in patient education, counseling, and coordination of care as described above. Vital Signs/Physical Exam: Temp Pulse Resp BP Pulse Ox 97.6 F 110 H 16 112/64 95 08/31/22 08:00 08/31/22 08:00 08/31/22 11:50 08/31/22 08:00 08/31/22 11:50 General: Alert, In no apparent distress, Oriented x3 HEENT: Atraumatic, PERRLA, Mucous membr. moist/pink, EOMI, Sclerae nonicteric Neck: Supple, JVD not distended Respiratory: Clear to auscultation bilaterally, Normal air movement Cardiovascular: No edema, Regular rate/rhythm, Normal S1 S2, No gallops, No rubs, No murmurs Capillary refill: <2 Seconds Gastrointestinal: Normal bowel sounds, Soft and benign, Non-distended, No tenderness, No rebound, No guarding Musculoskeletal: No clubbing Integumentary: No rashes Neurological: Normal speech, Cranial nerves 3-12 intact, Normal affect Laboratory Data at Discharge: WBC 8.30 K/uL (4.3-10.9) 08/30/22 10:32 Hgb 12.5 g/dL (13.6-17.9) L 08/30/22 10:32 Hct 36.8 % (39.6-49.0) L 08/30/22 10:32 Plt Count 151 K/uL (152-406) L 08/30/22 10:32 Sodium 136 mmol/L (136-145) 08/30/22 10:32 Potassium 4.1 mmol/L (3.5-5.1) 08/30/22 10:32 BUN 16 mg/dL (7-18) 08/30/22 10:32 Creatinine 1.20 mg/dL (0.55-1.3) 08/30/22 10:32 Glucose 155 mg/dL (74-106) H 08/30/22 10:32 Triglycerides 92 mg/dL (<150) 08/30/22 16:11 Cholesterol 174 mg/dL (<200) 08/30/22 16:11 HDL Cholesterol 97 mg/dL (40-60) H 08/30/22 16:11 Cholesterol/HDL Ratio 1.79 08/30/22 16:11 Home Medications: ALPRAZolam [Xanax*] 1 tab PO DAILY 08/30/22 Aspirin 1 tab PO DAILY 08/30/22 Escitalopram [Lexapro*] 1 tab PO DAILY 08/30/22 Furosemide 1 tab PO DAILY 08/30/22 Losartan Potassium 1 tab PO DAILY 08/30/22 Metformin HCl [Metformin HCl ER] 1 tab PO BID 08/30/22 Pantoprazole [Protonix Tab*] 1 tab PO DAILY 08/30/22 Rifampin 2 cap PO BID 08/30/22 Tramadol HCl [Ultram] 1 tab PO Q4HP PRN 08/30/22 Physician Discharge Instructions: 1. Please schedule a follow-up with your PCP (Dr. Grover) in 3-5 days 2. Please schedule a follow-up appointment with Cardiology (Dr. Carolina) in 3-5 days - He will schedule you for a heart ultrasound (echocardiogram) and cardiac stress test this appointment 3. Please schedule a follow-up appointment with Pulmonary Medicine (Dr. Alejandro) in 5-7 days - You will need to schedule a repeat CT scan of your chest in 3-6 months to monitor the spot on your lung Diet: Regular Activity: Fall precautions Followup: Diogo Grover MD [Primary Care Provider] - Karson Carolina MD [ACTIVE - CAN ADMIT] - Woodrow Alejandro MD [ACTIVE - CAN ADMIT] - Time spent managing pt's care (in minutes): 25
[2022-08-31 12:13] VITALS: O2SAT 95
[2022-08-31 13:04] VITALS: BP 117/69; TEMP 97.4
--- NOTE | 2022-08-31 23:27 | CON ---
Date of Consultation: 08/31/2022 Reason For Consultation: Chest pain. History Of Present Illness: Mr. Smith is a patient of Dr. Grover, has a rather complicated history, that is kind of vague. He does have a history of diabetes, seizure disorder, hypertension, depressio n, and apparently in 2008 had what appeared to be a cardiac arrest and according to him at that time had a normal cardiac workup including a catheterization. The last time he had the heart evaluated, w as then. He came in with atypical chest pain, mostly when he takes a deep breath with or without any nausea, vomiting, diaphoresis, PND, orthopnea, pedal edema, palpitations, or syncope. Past Medical History: As stated above. Allergies: NONE. Review of Systems: Negative. Social History: Negative. Family History: Noncontributory. Medications: At home include aspirin, insulin, Ativan, Lasix, metformin, rifampin, and losartan. He has stopped taking the rifampin. He does not remember, why he took it in the past. Physical Examination: Vital Signs: Stable, afebrile. HEENT: Negative. Neck: Supple without bruit, JVD, or lymphadenopathy. Chest: Clear. Cardiac: Normal. Abdomen: Benign. Extremities: No clubbing, cyanosis, or edema. Diagnostic Data: All within normal limits. EKG is nonspecific. Chest x-ray is negative. Troponin is negative. Impression And Plan: Chest pain, most likely pleuritic in a patient with history of cardiac arrest, diabetes, and hypertension. I think it is best to have an outpatient echocardiogram and Lexiscan. Yandel caro can go home today. I will make arrangements for that. His other problems including diabetes, well controlled; history of seizure disorder, he is not taking any more medicine for that. He has a hist ory of hypertension, which is well controlled; depression, well controlled. He has history of cardia c arrest, that is rather vague. No documentation, no records. This happened in 2006. Post, he has had a negative cardiac workup, but has not had outflow tract since. He can go home. We will see him soon in the office. SARANYA/RADHA Voice ID: [id number] Report ID: [id number]
--- NOTE | 2022-09-01 15:35 | EKG ---
Test Date: 2022-08-30 Test Time: 10:24:39 Web Services Developer: MB MEASUREMENT RESULTS: Intervals: Rate: 116 CO: 136 QRSD: 110 QT: 356 QTc: 494 [place]: P: 81 CO: 136 QRS: 80 T: 35 INTERPRETIVE STATEMENTS: Sinus tachycardia Low voltage QRS Incomplete right bundle branch block Nonspecific T wave abnormality Abnormal ECG Compared to ECG 10/07/2021 08:53:15 Low QRS voltage now present Incomplete right bundle-branch block now present T-wave abnormality now present Right bundle-branch block no longer present Electronically Signed On 09-01-22 15:30:41 SKATE MAKER by Oliverio Riley
--- NOTE | 2022-09-03 11:38 | EKG ---
Test Date: 2022-08-31 Test Time: 12:38:57 Vending Manager: NICOLE MEASUREMENT RESULTS: Intervals: Rate: 103 MD: 114 QRSD: 110 QT: 362 QTc: 474 [place]: P: 68 MD: 114 QRS: 44 T: 38 INTERPRETIVE STATEMENTS: Sinus tachycardia Low voltage QRS Right bundle branch block Abnormal ECG Compared to ECG 08/30/2022 10:24:39 Right bundle-branch block now present Incomplete right bundle-branch block no longer present T-wave abnormality no longer present Electronically Signed On 09-03-22 11:34:44 ASSISTANT ATTORNEY GENERAL by Karson Carolina
== END 2022-08-31 14:29 | disposition home or self-care (01) ==
LOC: ER 10:15 → ERHOLD 15:22 → 4TH 16:47
PROVIDERS: ADMIT Internal Medicine Sleep Medicine; ATTEND Internal Medicine
DX: R07.9 Chest pain, unspecified (principal); I25.10 Atherosclerotic heart disease of native coronary artery without angina pectoris; F10.20 Alcohol dependence, uncomplicated; K70.30 Alcoholic cirrhosis of liver without ascites; E11.65 Type 2 diabetes mellitus with hyperglycemia; Z85.46 Personal history of malignant neoplasm of prostate; I10 Essential (primary) hypertension; R91.8 Other nonspecific abnormal finding of lung field; S22.42XG Multiple fractures of ribs, left side, subsequent encounter for fracture with delayed healing; W18.30XD Fall on same level, unspecified, subsequent encounter; R56.9 Unspecified convulsions; F32.A Depression, unspecified; Z86.74 Personal history of sudden cardiac arrest; Z20.822 Contact with and (suspected) exposure to COVID-19
CPT/HCPCS: 36415; 71045; 71275; 74150; 80048; 80061; 82947; 83036; 83880; 84443; 84484; 85025; 85379; 93005; 96374; 99285; G0378; J1815; J2270; J3010; Q9967; U0003

== ENCOUNTER 2023-04-21 12:59 | Inpatient (IN) | payer OTHER ==
[2023-04-21] MEDS ORDERED: NA CHLORIDE 0.9% 1,000 ML ONE (13:19)
[2023-04-21 13:41] LABS: Arterial Blood Carboxyhemoglob 0.6 % (0-1.5); Blood Gas Oxyhemoglobin 13.5 % (94-97); Blood O2 Saturation 13.8 % (92-98.5)
[2023-04-21 13:44] LABS: Absolute Lymphocytes (CBC) 0.8 K/uL (0.7-4.9); Hematocrit 30.7 % (39.6-49.0); Lymphocytes % 17.9 % (15.3-44.8); MCV 106.5 fL (80-100); RBC Red Blood Cell Count 2.88 M/uL (4.33-5.43)
[2023-04-21] MEDS ORDERED: MULTIVITAMINS 10 ML VIAL (INJ) IV ONE (13:51)
[2023-04-21] MEDS ORDERED: Ringers Lactate 1,000 ML IV ONE ×2 (14:07→15:43)
[2023-04-21] MEDS ORDERED: dilTIAZem HCL 25 MG/5 ML VIAL IV ONE (14:13)
[2023-04-21 14:14] LABS: Troponin High Sensitivity 20.3 pg/mL (<58.9)
[2023-04-21 14:37] LABS: Protime INR 0.96
[2023-04-21] MEDS ORDERED: ENOXAPARIN 80 MG/0.8 ML SQ ONE (15:00)
[2023-04-21] MEDS ORDERED: CALCIUM GLUCONATE 1 GM IVPB 1 GM/50 ML BAG IV ONE (15:00)
--- NOTE | 2023-04-21 15:16 | RAD REPORT ---
EXAM DESCRIPTION: RADChest Single View04/21/2023 1:55 pm CLINICAL HISTORY: hypotension COMPARISON: Chest Single View dated 08/30/2022; Chest Single View dated 10/07/2021; Chest Single Vie w dated 03/10/2021; CHEST SINGLE VIEW dated 03/17/2009 TECHNIQUE: Portable AP view of the chest. FINDINGS: The lungs are clear. No pneumothorax or effusion. The cardiomediastinal contours are unre markable. IMPRESSION: No acute cardiopulmonary process.
--- NOTE | 2023-04-21 15:17 | RAD REPORT ---
EXAM DESCRIPTION: RAD - Pelvis - 04/21/2023 1:55 pm CLINICAL HISTORY: TRAUMA COMPARISON: Pelvis dated 03/10/2021; Angio Aorta For Dissection dated 10/07/2021 TECHNIQUE: Single AP view of the pelvis. FINDINGS: The visualized pelvic ring is intact. No suspicious osseous lesions. Left total hip arthro plasty hardware in stable alignment. Severe degenerative changes of the right hip joint with the degr ee of collapse of the femoral head, grossly stable compared to the prior exams. Other pelvic joints a re unremarkable. Visualized aspects of the abdomen and soft tissues are unremarkable. IMPRESSION: No acute osseous abnormality of the bony pelvis. Stable chronic findings as above.
[2023-04-21 15:27] LABS: Albumin 2.5 g/dL (3.4-5.0); Bilirubin Total 0.7 mg/dL (0.2-1.0); Magnesium 1.2 mg/dL (1.6-2.4); Protein, Total 5.8 g/dL (6.4-8.2)
[2023-04-21 15:28] LABS: Potassium 6.1 mEq/L (3.5-5.1)
[2023-04-21] MEDS ORDERED: AMIODARONE HCL 150 MG/3 ML INJ IV ONE (15:55)
[2023-04-21] MEDS ORDERED: D5W 100 ML IV ONE (15:55)
[2023-04-21] MEDS ORDERED: AMIODARONE HCL 900 MG in Dextrose 5%-Water 482 ML IV SCH (16:00)
[2023-04-21 16:20] LABS: Specific Gravity 1.011 (1.005-1.030); Urine Bilirubin NEGATIVE (Negative); Urine Blood Negative (Negative); Urine Clarity Clear (Clear); Urine Color Light-Yellow (Yellow); Urine Glucose NEGATIVE (Negative); Urine Protein NEGATIVE (Negative); Urine Urobilinogen Normal (Normal)
[2023-04-21] MEDS ORDERED: MAGNESIUM 50% 3 GM in NA CHLORIDE 0.9% 100 ML IV ONE (16:45)
--- NOTE | 2023-04-21 16:51 | ER ---
Nurse's Notes [facility] Name: Jordon Smith Age: 63 yrs Sex: Male : 1960 Arrival Date: 04/21/2023 Time: 12:59 Bed 3 Private MD: Diagnosis: Acute systolic (congestive) heart failure;atrial fibrillation with RVR Presentation: 04/21 13:05 Chief complaint: EMS states: dizziness and blood in the stool for a few days with kc6 recent falls, worse today. upon arrival pts BP was in the 80's systolic, as low as 70 SBP. they believed him to be SVT. Dr. Langston consulted en route, pt determined to be in afib RVR. pt denies chest pain or SOB upon arrival in ED. Coronavirus screen: At this time, the client does not indicate any symptoms associated with coronavirus-19. Ebola Screen: No symptoms or risks identified at this time. Initial Sepsis Screen: Does the patient meet any 2 criteria? Systolic BP < 90 mmHg. HR > 90 bpm. Does the patient have a suspected source of infection? No. Patient's initial sepsis screen is negative. Risk Assessment: Do you want to hurt yourself or someone else? Patient reports no desire to harm self or others. Onset of symptoms was April 21, 2023. 13:05 Method Of Arrival: EMS: [facility] kc6 13:05 Acuity: ADRY 3 kc6 14:00 Acuity: ADRY 1 ss Triage Assessment: 13:07 General: Appears in no apparent distress. comfortable, Behavior is calm, cooperative, kc6 appropriate for age. Pain: Denies pain. EENT: No signs and/or symptoms were reported regarding the EENT system. Neuro: Whittaker Agitation-Sedation Scale (RASS): 0 - Alert and Calm Level of Consciousness is awake, alert, obeys commands, Oriented to person, place, time, situation, Appropriate for age. Cardiovascular: Heart tones S1 S2 present Capillary refill < 3 seconds Rhythm is atrial fibrillation with rapid ventricular response Chest pain is denied. Respiratory: Airway is patent Trachea midline Respiratory effort is even, unlabored, Respiratory pattern is regular, symmetrical. GI: Reports bloody stool, Patient currently denies diarrhea, nausea, vomiting. : No signs and/or symptoms were reported regarding the genitourinary system. Derm: Skin is intact, is healthy with good turgor, Skin is dry, Skin is pale, Skin temperature is warm. Musculoskeletal: No signs and/or symptoms reported regarding the musculoskeletal system. Circulation, motion, and sensation intact. Capillary refill < 3 seconds, Range of motion: intact in all extremities. Historical: - Allergies: 13:07 No Known Allergies; kc6 - PMHx: 13:07 cardiac arrest; depressive disorder; Diabetes - NIDDM; Hypertension; Seizure; kc6 - PSHx: 13:07 Left hip; prostatectomy; Tonsillectomy; kc6 - Immunization history:: Client reports having NOT received the Covid vaccine. Flu vaccine is not up to date. - Social history:: Smoking status: Patient reports the use of cigarette tobacco products, smokes one-half pack cigarettes per day. Screenin:05 [facility] ED Fall Risk Assessment (Adult) History of falling in the last 3 months, kc6 including since admission Yes- single mechanical fall (1 pt) Confusion or Disorientation No (0 pts) Intoxicated or Sedated No (0 pts) Impaired Gait Yes (1 pt) Mobility Assist Device Used Yes (1 pt) Altered Elimination No (0 pt) Score/Fall Risk Level 3 or more points = High Risk Oriented to surroundings, Maintained a safe environment, Educated pt \T\ family on fall prevention, incl call for assistance when getting out of bed, Assessed \T\ reinforced patient's understanding of fall precautions, Provided non-skid footwear, Hourly rounding (assess needs \T\ fall precautionary measures) done. Abuse screen: Denies threats or abuse. Denies injuries from another. Nutritional screening: No deficits noted. Tuberculosis screening: No symptoms or risk factors identified. Assessment: 13:05 Reassessment: please see triage assessment. kc6 14:01 Reassessment: notified of elevated HR. Neuro: Level of Consciousness is awake, aa5 alert, obeys commands, Oriented to person, place, time, situation. Respiratory: Airway is patent Respiratory effort is even, unlabored, Respiratory pattern is regular, symmetrical. Derm: Skin is dry, Skin is pale, Skin temperature is warm. 14:25 Neuro: Level of Consciousness is awake, alert, obeys commands, Oriented to person, aa5 place, time, situation. Respiratory: Airway is patent Respiratory effort is even, unlabored, Respiratory pattern is regular, symmetrical. Derm: Skin is dry, Skin is pale, Skin temperature is warm. 15:05 Reassessment: Patient appears in no apparent distress at this time. No changes from kc6 previously documented assessment. Patient and/or family updated on plan of care and expected duration. Pain level reassessed. Patient is alert, oriented x 3, equal unlabored respirations, skin warm/dry/pink. 16:05 Reassessment: Patient appears in no apparent distress at this time. No changes from kc6 previously documented assessment. Patient and/or family updated on plan of care and expected duration. Pain level reassessed. Patient is alert, oriented x 3, equal unlabored respirations, skin warm/dry/pink. 17:05 Reassessment: Patient appears in no apparent distress at this time. No changes from kc6 previously documented assessment. Patient and/or family updated on plan of care and expected duration. Pain level reassessed. Patient is alert, oriented x 3, equal unlabored respirations, skin warm/dry/pink. 17:50 Reassessment: Patient appears in no apparent distress at this time. No changes from kc6 previously documented assessment. Patient and/or family updated on plan of care and expected duration. Pain level reassessed. Patient is alert, oriented x 3, equal unlabored respirations, skin warm/dry/pink. Vital Signs: 13:05 BP 81 / 53; Pulse 11; Resp 20 S; Temp 97.4(O); Pulse Ox 100% on R/A; Weight 89.36 kg kc6 (R); Height 6 ft. 0 in. (R); 14:01 BP 120 / 84; Pulse 138; Resp 16 S; Pulse Ox 98% on R/A; aa5 14:05 BP 121 / 93; Pulse 178; Resp 20 S; Pulse Ox 98% on R/A; aa5 14:10 BP 97 / 42; Pulse 99; Resp 19 S; Pulse Ox 100% on R/A; aa5 14:15 BP 94 / 64; Pulse 100; Resp 16 S; Pulse Ox 97% on R/A; aa5 14:25 BP 98 / 70; Pulse 150; Resp 16 S; Pulse Ox 98% on R/A; aa5 14:45 BP 96 / 72; Pulse 178; Resp 14 S; Pulse Ox 100% on R/A; kc6 15:00 BP 87 / 72; Pulse 162; Resp 29 S; Pulse Ox 100% on R/A; kc6 15:15 BP 97 / 69; Pulse 179; Resp 29 S; Pulse Ox 100% on R/A; kc6 15:30 BP 104 / 75; Pulse 180; Resp 24 S; Pulse Ox 96% on R/A; kc6 15:45 BP 87 / 74; Pulse 176; Resp 22 S; Pulse Ox 96% on R/A; kc6 16:00 BP 113 / 80; Pulse 175; Resp 19 S; Pulse Ox 100% on R/A; kc6 16:23 BP 95 / 64; Pulse 154; Resp 19 S; Pulse Ox 100% on R/A; kc6 16:46 BP 109 / 85; Pulse 179; Resp 24 S; Pulse Ox 96% on R/A; kc6 17:00 BP 101 / 78; Pulse 178; Resp 18 S; Pulse Ox 97% on R/A; kc6 17:16 BP 83 / 56; Pulse 169; Resp 19 S; Pulse Ox 98% on R/A; kc6 17:30 BP 104 / 77; Pulse 141; Resp 20 S; Pulse Ox 95% on R/A; kc6 19:55 BP 104 / 76; Pulse 127; Resp 20 S; Pulse Ox 98% on R/A; ha1 13:05 Body Mass Index 26.72 (89.36 kg, 182.88 cm) kc6 ED Course: 13:00 Maintain EMS IV. Dressing intact. Good blood return noted. Site clean \T\ dry. Gauge \T\ gabriel 6 site: 20G LAC. 13:02 Patient arrived in ED. kj1 13:03 Primo Fuentes MD is Attending Physician. jr11 13:05 Patient has correct armband on for positive identification. Placed in gown. Bed in low kc6 position. Call light in reach. Side rails up X2. 13:07 Triage completed. kc6 13:07 Arm band placed on. kc6 13:38 Ana Cruz RN is Primary Nurse. kc6 13:57 Chest Single View XRAY In Process Unspecified. EDMS 13:57 Pelvis XRAY In Process Unspecified. EDMS 14:25 Inserted saline lock: 20 gauge in right antecubital area, using aseptic technique. aa5 16:49 Tay Prince MD is Hospitalizing Provider. jr11 20:33 Provided Education on: admit. as6 20:33 No provider procedures requiring assistance completed. Patient admitted, IV remains in as6 place. Administered Medications: 13:38 Drug: NS 0.9% IV 1000 ml Route: IV; Rate: 999 bolus; Site: left antecubital; 6 16:05 Follow up: Response: No adverse reaction; IV Status: Completed infusion; IV Intake: kc6 1000ml 13:42 Drug: Multivitamin IV 1 amp Route: IV; Rate: bolus; Site: left antecubital; [facility] 16:05 Follow up: Response: No adverse reaction; IV Status: Completed infusion 6 14:01 Drug: Lactated Ringers Solution IV 1000 ml Route: IV; Rate: 999 bolus; Site: left [facility] antecubital; 16:05 Follow up: Response: No adverse reaction; IV Status: Completed infusion; IV Intake: kc6 1000ml 14:05 Drug: Diltiazem IVP 5 mg Route: IVP; Site: left antecubital; [facility] 16:06 Follow up: Response: No adverse reaction; Cardiac rhythm is unchanged [facility] 14:44 Not Given (Duplicate Order): amiodarone IVPB 150 mg 100 ml IVPB once over 10 mins; (mix jr11 in D5W) 14:44 CANCELLED (Duplicate Order): amiodarone IVPB 900 mg, D5W IV 500 ml IVPB at 1 mg/min jr11 continuous; for 6 hrs, then change to 0.5 mg/min 14:58 Drug: Enoxaparin Sub-Q 1 mg/kg Route: Sub-Q; Site: abdomen; [facility] 16:06 Follow up: Response: No adverse reaction [facility] 14:58 Drug: Calcium Gluconate IVPB 1 grams Route: IVPB; Infused Over: 60 mins; Site: left [facility] antecubital; 16:06 Follow up: Response: No adverse reaction; IV Status: Completed infusion; IV Intake: kc6 100ml 15:42 Drug: Sodium Bicarbonate IVP 1 amp Route: IVP; Site: right antecubital; [facility] 16:34 Follow up: Response: No adverse reaction 6 15:42 Drug: Lactated Ringers Solution IV 500 ml Route: IV; Rate: 500 bolus; Site: left [facility] antecubital; 16:34 Follow up: Response: No adverse reaction; IV Status: Completed infusion; IV Intake: kc6 500ml 15:56 Drug: amiodarone IVPB 150 mg Volume: 100 ml; Route: IVPB; Infused Over: 10 mins; Site: kc6 right antecubital; 16:34 Follow up: Response: No adverse reaction; IV Status: Completed infusion; IV Intake: kc6 100ml 16:19 Drug: amiodarone IVPB 900 mg, D5W IV 500 ml Route: IVPB; Rate: 1 mg/min; Site: left kc6 antecubital; 18:48 Follow up: Response: No adverse reaction; IV Status: Infusion continued upon admission kc6 18:40 Drug: Furosemide IVP 40 mg Route: IVP; Site: right antecubital; kc6 18:48 Follow up: Response: No adverse reaction kc6 Medication: 20:32 VIS not applicable for this client. as6 Point of Care Testing: Guaiac: 13:15 No gross blood, green stool jr11 Intake: 16:05 IV: 1000ml; Total: 1000ml. kc6 16:05 IV: 1000ml; Total: 2000ml. kc6 16:06 IV: 100ml; Total: 2100ml. kc6 16:34 IV: 500ml; Total: 2600ml. kc6 16:34 IV: 100ml; Total: 2700ml. kc6 Outcome: 16:50 Decision to Hospitalize by Provider. jr11 20:33 Admitted to ICU accompanied by nurse, via stretcher, room 6, on monitor, with chart. as6 20:33 Condition: stable 20:33 Instructed on the need for admit. 20:33 Patient left the ED. as6 Signatures: Dispatcher [employer] EDMS Nancy Bella RN RN aa5 Oxana Abreu RN RN ss Jackson, Kandis kj1 Azar Bernardo RN RN as6 Primo Fuentes MD MD jr11 Fanny Wilson RN RN ha1 Ana Cruz RN RN kc6 Corrections: (The following items were deleted from the chart) 14:38 14:01 Derm: Skin is dry, Skin is pale, Skin temperature is cool aa5 aa5 16:31 13:05 Chief complaint: EMS states: dizziness and blood in the stool for a few days with kc6 recent falls kc6
--- NOTE | 2023-04-21 16:51 | EDPHYS ---
Physician Documentation [facility] Name: Jordon Smith Age: 63 yrs Sex: Male : 1960 Arrival Date: 04/21/2023 Time: 12:59 Bed 3 Private MD: ED Physician Primo Fuentes HPI: 04/21 13:15 Patient is a 63-year-old male who comes to us after a week of dizziness, AMS, recently jr11 has had multiple falls, is a daily drinker. Patient states he only drinks 3 times a day, drinks hard liquor. EMS was called because he felt very dizzy lightheaded. Denies any syncope denies shortness of breath denies exertional pain, no tearing pain, does not radiate to the back, does not cross the diaphragm. No diaphoresis, no vomiting. No syncope or near-syncope. Patient states that he had black stools last week, dark green currently.. Historical: - Allergies: 13:07 No Known Allergies; kc6 - PMHx: 13:07 cardiac arrest; depressive disorder; Diabetes - NIDDM; Hypertension; Seizure; kc6 - PSHx: 13:07 Left hip; prostatectomy; Tonsillectomy; kc6 - Immunization history:: Client reports having NOT received the Covid vaccine. Flu vaccine is not up to date. - Social history:: Smoking status: Patient reports the use of cigarette tobacco products, smokes one-half pack cigarettes per day. ROS: 13:15 All other systems are negative. jr11 Exam: 13:15 Constitutional: looks chronically and acutely ill Head/Face: Normocephalic, jr11 atraumatic. Eyes: pale mm Neck: Trachea midline, no thyromegaly or masses palpated, and no cervical lymphadenopathy. Supple, full range of motion without nuchal rigidity, or vertebral point tenderness. No Meningismus. Chest/axilla: Normal chest wall appearance and motion. Nontender with no deformity. No lesions are appreciated. Cardiovascular: tachy regular rhythm Abdomen/GI: Soft, non-tender, with normal bowel sounds. No distension or tympany. No guarding or rebound. No evidence of tenderness throughout. Back: No spinal tenderness. No costovertebral tenderness. Full range of motion. MS/ Extremity: Pulses equal, no cyanosis. Neurovascular intact. Full, normal range of motion. Neuro: Awake and alert, GCS 15, oriented to person, place, time, and situation. No gross motor or sensory deficits. Vital Signs: 13:05 BP 81 / 53; Pulse 11; Resp 20 S; Temp 97.4(O); Pulse Ox 100% on R/A; Weight 89.36 kg kc6 (R); Height 6 ft. 0 in. (R); 14:01 BP 120 / 84; Pulse 138; Resp 16 S; Pulse Ox 98% on R/A; aa5 14:05 BP 121 / 93; Pulse 178; Resp 20 S; Pulse Ox 98% on R/A; aa5 14:10 BP 97 / 42; Pulse 99; Resp 19 S; Pulse Ox 100% on R/A; aa5 14:15 BP 94 / 64; Pulse 100; Resp 16 S; Pulse Ox 97% on R/A; aa5 14:25 BP 98 / 70; Pulse 150; Resp 16 S; Pulse Ox 98% on R/A; aa5 14:45 BP 96 / 72; Pulse 178; Resp 14 S; Pulse Ox 100% on R/A; kc6 15:00 BP 87 / 72; Pulse 162; Resp 29 S; Pulse Ox 100% on R/A; kc6 15:15 BP 97 / 69; Pulse 179; Resp 29 S; Pulse Ox 100% on R/A; kc6 15:30 BP 104 / 75; Pulse 180; Resp 24 S; Pulse Ox 96% on R/A; kc6 15:45 BP 87 / 74; Pulse 176; Resp 22 S; Pulse Ox 96% on R/A; kc6 16:00 BP 113 / 80; Pulse 175; Resp 19 S; Pulse Ox 100% on R/A; kc6 16:23 BP 95 / 64; Pulse 154; Resp 19 S; Pulse Ox 100% on R/A; kc6 16:46 BP 109 / 85; Pulse 179; Resp 24 S; Pulse Ox 96% on R/A; kc6 17:00 BP 101 / 78; Pulse 178; Resp 18 S; Pulse Ox 97% on R/A; kc6 17:16 BP 83 / 56; Pulse 169; Resp 19 S; Pulse Ox 98% on R/A; kc6 17:30 BP 104 / 77; Pulse 141; Resp 20 S; Pulse Ox 95% on R/A; kc6 19:55 BP 104 / 76; Pulse 127; Resp 20 S; Pulse Ox 98% on R/A; ha1 13:05 Body Mass Index 26.72 (89.36 kg, 182.88 cm) kc6 MDM: 13:06 Patient medically screened. jr11 13:15 Differential diagnosis: cardiac arrhythmia, CVA, generalized weakness, GI bleed, jr11 hypovolemia, sepsis. Data reviewed: vital signs, nurses notes, EMS record. 13:37 ED course: EKG interpreted by me shows atrial flutter 2-1 conduction, no significant ST jr depression. QRS is otherwise narrow at 110 with a QTc of 428.. ED course: front desk monitor rhythm interpreted by me shows atrial flutter at a rate of 150. 13:50 ED course: Venous blood gas shows a pH of 7.3 CO2 of 37, hemoglobin of 11.. jr11 15:35 ED course: Spoke to cardiology Dr Harper, start amio bolus and drip . jr11 16:48 ED course: no source of infection, no leukocytosis, will admit for afib RVR and jr11 congestive heart failure on amio drip. 04/21 13:05 Order name: Blood Culture Adult (2) [facility] 04/21 13:05 Order name: CBC with Diff; Complete Time: 14:28 [facility] 04/21 13:05 Order name: CMP; Complete Time: 15:37 [facility] 04/21 13:05 Order name: Lactate w/ 2H reflex if indic.; Complete Time: 14:38 [facility] 04/21 13:05 Order name: Protime (+inr); Complete Time: 15:15 [facility] 04/21 13:05 Order name: Ptt, Activated; Complete Time: 15:15 04/21 13:05 Order name: Urinalysis w/ reflexes; Complete Time: 16:22 [facility] 04/21 13:05 Order name: ABG: VENOUS; Complete Time: 15:15 [facility] 04/21 13:05 Order name: Type And Screen; Complete Time: 15:25 [facility] 04/21 13:05 Order name: Magnesium; Complete Time: 15:37 [facility] 04/21 13:05 Order name: CK; Complete Time: 15:37 [facility] 04/21 13:07 Order name: Troponin High Sensitivity; Complete Time: 14:28 04/21 13:07 Order name: BNP; Complete Time: 14:28 [facility] 04/21 15:13 Order name: ABO/RH no charge; Complete Time: 15:15 [facility] 04/21 16:28 Order name: BMP; Complete Time: 17:15 [facility] 04/21 16:28 Order name: Lactate w/ 2H reflex if indic.; Complete Time: 17:15 [facility] 04/21 17:48 Order name: Hemoglobin A1c; Complete Time: 19:03 [facility] 04/21 17:53 Order name: Creatine Phosphokinase; Complete Time: 19:03 [facility] 04/21 17:53 Order name: Magnesium; Complete Time: 19:03 [facility] 04/21 17:53 Order name: Phosphorus; Complete Time: 19:03 [facility] 04/21 17:53 Order name: T4 Free; Complete Time: 19:03 [facility] 04/21 17:53 Order name: Thyroid Stimulating Hormone; Complete Time: 19:03 [facility] 04/21 17:53 Order name: CBC with Automated Diff [facility] 04/21 17:53 Order name: CBC with Automated Diff [facility] 04/21 17:53 Order name: Comprehensive Metabolic Panel [facility] 04/21 17:53 Order name: Comprehensive Metabolic Panel [facility] 04/21 17:53 Order name: Lipid Profile [facility] 04/21 17:53 Order name: Lipid Profile [facility] 04/21 17:53 Order name: NT PRO-BNP [facility] 04/21 17:53 Order name: NT PRO-BNP [facility] 04/21 13:05 Order name: Chest Single View XRAY; Complete Time: 15:25 [facility] 04/21 13:06 Order name: Pelvis XRAY; Complete Time: 15:25 [facility] 04/21 13:05 Order name: EKG; Complete Time: 13:06 [facility] 04/21 17:48 Order name: 60g Consistent Carbohydrate (ADA 1800/2000) [facility] 04/21 17:53 Order name: CONS Physician Consult [facility] 04/21 13:05 Order name: Accucheck; Complete Time: 13:38 [facility] 04/21 13:05 Order name: Cardiac monitoring; Complete Time: 13:38 [facility] 04/21 13:05 Order name: EKG - Nurse/Tech; Complete Time: 13:38 [facility] 04/21 13:05 Order name: IV Saline Lock - Large Bore; Complete Time: 13:38 04/21 13:05 Order name: Labs collected and sent; Complete Time: :38 04/21 13:05 Order name: O2 Per Protocol; Complete Time: :04/21 13:05 Order name: O2 Sat Monitoring; Complete Time: :38 04/21 13:05 Order name: Vital Signs; Complete Time: Administered Medications: 13:38 Drug: NS 0.9% IV 1000 ml Route: IV; Rate: 999 bolus; Site: left antecubital; kc6 16:05 Follow up: Response: No adverse reaction; IV Status: Completed infusion; IV Intake: kc6 1000ml 13:42 Drug: Multivitamin IV 1 amp Route: IV; Rate: bolus; Site: left antecubital; [facility] 16:05 Follow up: Response: No adverse reaction; IV Status: Completed infusion [facility] 14:01 Drug: Lactated Ringers Solution IV 1000 ml Route: IV; Rate: 999 bolus; Site: left [facility] antecubital; 16:05 Follow up: Response: No adverse reaction; IV Status: Completed infusion; IV Intake: kc6 1000ml 14:05 Drug: Diltiazem IVP 5 mg Route: IVP; Site: left antecubital; [facility] 16:06 Follow up: Response: No adverse reaction; Cardiac rhythm is unchanged [facility] 14:44 Not Given (Duplicate Order): amiodarone IVPB 150 mg 100 ml IVPB once over 10 mins; (mix jr11 in D5W) 14:44 CANCELLED (Duplicate Order): amiodarone IVPB 900 mg, D5W IV 500 ml IVPB at 1 mg/min jr11 continuous; for 6 hrs, then change to 0.5 mg/min 14:58 Drug: Enoxaparin Sub-Q 1 mg/kg Route: Sub-Q; Site: abdomen; [facility] 16:06 Follow up: Response: No adverse reaction [facility] 14:58 Drug: Calcium Gluconate IVPB 1 grams Route: IVPB; Infused Over: 60 mins; Site: left kc antecubital; 16:06 Follow up: Response: No adverse reaction; IV Status: Completed infusion; IV Intake: kc6 100ml 15:42 Drug: Sodium Bicarbonate IVP 1 amp Route: IVP; Site: right antecubital; kc 16:34 Follow up: Response: No adverse reaction [facility] 15:42 Drug: Lactated Ringers Solution IV 500 ml Route: IV; Rate: 500 bolus; Site: left [facility] antecubital; 16:34 Follow up: Response: No adverse reaction; IV Status: Completed infusion; IV Intake: kc6 500ml 15:56 Drug: amiodarone IVPB 150 mg Volume: 100 ml; Route: IVPB; Infused Over: 10 mins; Site: [facility] right antecubital; 16:34 Follow up: Response: No adverse reaction; IV Status: Completed infusion; IV Intake: kc6 100ml 16:19 Drug: amiodarone IVPB 900 mg, D5W IV 500 ml Route: IVPB; Rate: 1 mg/min; Site: left [facility] antecubital; 18:48 Follow up: Response: No adverse reaction; IV Status: Infusion continued upon admission [facility] 18:40 Drug: Furosemide IVP 40 mg Route: IVP; Site: right antecubital; [facility] 18:48 Follow up: Response: No adverse reaction [facility] Point of Care Testing: Guaiac: 13:15 No gross blood, green stool jr11 Disposition Summary: 04/21/23 16:50 Hospitalization Ordered Hospitalization Status: Inpatient Admission [facility] Provider: Tay Prince Location: Intensive Care Unit [facility] Condition: Serious [facility] Problem: new jr11 Symptoms: have improved jr11 Bed/Room Type: Standard [facility] Room Assignment: 6-(04/21/23 19:46) Diagnosis - Acute systolic (congestive) heart failure jr11 - atrial fibrillation with RVR [facility] Forms: - Medication Reconciliation Form jr11 - SBAR form 11 Critical care time excluding procedures: 16:28 Critical care time: Bedside Care: 16 minutes, Consultation: 9 minutes, Family [facility] Intervention: 6 minutes. Total time: 31 minutes Signatures: Dispatcher [employer] EDMS Nancy Bella RN RN aa5 Tiffany Prater RN RN cg Rosillo, Jose, MD MD jr11 Ana Curz RN RN kc6 Corrections: (The following items were deleted from the chart) 13:37 13:37 ED course: Cardiac rhythm interpreted by me shows atrial flutter at a rate of jr11 150. jr11 14:44 14:41 amiodarone 900 mg, D5W 500 ml; IVPB at 1 mg/min continuous; for 6 hrs, then jr11 change to 0.5 mg/min ordered. jr11 15:20 14:43 BASIC METABOLIC PANEL+C.LISA.RENEZ ordered. EDMS EDMS 19:46 16:50 jr11 cg
[2023-04-21 17:14] LABS: Potassium 6.4 mEq/L (3.5-5.1)
[2023-04-21] MEDS ORDERED: ACETAMINOPHEN 325 MG TABLET PO PRN (17:40)
[2023-04-21] MEDS ORDERED: SODIUM ZIRCONIUM CYCLOSILICATE 10 GM/PKT PO ONE ×2 (17:43→19:00)
[2023-04-21] MEDS ORDERED: ONDANSETRON 4 MG/2 ML VIAL IV PRN (17:49)
[2023-04-21] MEDS ORDERED: SODIUM CHLORIDE 0.9% 10ML INJ IV PRN (17:51)
--- NOTE | 2023-04-21 17:54 | P.HP ---
Certification for Inpatient Patient admitted to: Inpatient With expected LOS: >2 Midnights Patient will require the following post-hospital care: None Practitioner: I am a practitioner with admitting privileges, knowledge of patient current condition, hospital course, and medical plan of care. Services: Services provided to patient in accordance with Admission requirements found in Title 42 Section 412.3 of the Code of Federal Regulations Patient History Date of Service: 04/21/23 Reason for admission: Dizziness, AMS History of Present Illness: Patient is a 63-year-old male with a past medical history significant for AK, depression, DM 2, hypertension, seizures who presents with complaint of dizziness and altered mental status. At time of assessment patient is alert and oriented x3. Patient is a poor historian and unable to provide accurate history. Patient reported he has been having episodes of dizziness for the past couple months but dizziness became worse in the last couple weeks. Patient reports frequent falls and near syncope episodes secondary to dizziness. Patient denies any other signs and symptoms. Symptoms are aggravated or relieved by nothing. Patient was brought to the hospital for medical evaluation. Allergies No Known Allergies Allergy (Unverified 08/30/22 15:42) Home Medications: ALPRAZolam [Xanax*] 1 tab PO DAILY 08/30/22 Aspirin 1 tab PO DAILY 08/30/22 Escitalopram [Lexapro*] 1 tab PO DAILY 08/30/22 Furosemide 1 tab PO DAILY 08/30/22 Losartan Potassium 1 tab PO DAILY 08/30/22 Metformin HCl [Metformin HCl ER] 1 tab PO BID 08/30/22 Pantoprazole [Protonix Tab*] 1 tab PO DAILY 08/30/22 Rifampin 2 cap PO BID 08/30/22 Tramadol HCl [Ultram] 1 tab PO Q4HP PRN 08/30/22 - Past Medical/Surgical History Diabetic: Yes -: HTN -: Prostate Cancer -: NIDDM2 -: HTN -: Left Shoulder torn rotator cuff -: Left Hip Replacement - Social History Smoking Status: Current every day smoker Counseled patient to stop smoking for: less than 10 minutes Smoking therapy provided: Yes Patient receptive to therapy: Yes Alcohol use: Yes CD- Drugs: No Caffeine use: Yes Place of Residence: Home Review of Systems General: Unremarkable Eyes: Unremarkable ENT: Unremarkable Respiratory: Unremarkable Cardiovascular: Unremarkable Gastrointestinal: Unremarkable Genitourinary: Unremarkable Musculoskeletal: Other (Frequent falls) Integumentary: Unremarkable Neurological: Other (Dizziness, syncope) Lymphatics: Unremarkable Physical Examination - Physical Exam General: Alert, In no apparent distress, Oriented x3, Cooperative HEENT: Atraumatic, PERRLA, Mucous membr. moist/pink, EOMI, Sclerae nonicteric Neck: Supple, 2+ carotid pulse no bruit, No LAD, Without JVD or thyroid abnormality Respiratory: Clear to auscultation bilaterally, Normal air movement Cardiovascular: No edema, Regular rate/rhythm, Normal S1 S2 Capillary refill: <2 Seconds Gastrointestinal: Normal bowel sounds, Non-distended, No tenderness Musculoskeletal: No clubbing, No swelling, No tenderness Integumentary: No rashes, No significant lesion Neurological: Normal speech, Normal tone, Normal affect Lymphatics: No axilla or inguinal lymphadenopathy - Studies Laboratory Data (last 24 hrs) 04/21/23 16:40: Sodium 133 L, Potassium 6.4 H*, BUN 25 H, Creatinine 1.32 H, Glucose 95 04/21/23 14:55: Sodium Cancelled, Potassium Cancelled, BUN Cancelled, Creatinine Cancelled, Glucose Cancelled 04/21/23 14:55: Sodium 135 L, Potassium 6.1 H*, BUN 26 H, Creatinine 1.40 H, Glucose 76, Magnesium 1.2 L, Total Bilirubin 0.7, AST 70 H, ALT 44, Alkaline Phosphatase 168 H 04/21/23 13:33: PT 11.4, INR 0.96, APTT 27.6 04/21/23 13:33: WBC 4.30, Hgb 10.2 L, Hct 30.7 L, Plt Count 99 L Assessment and Plan - Plan -- A-fib with RVR. Patient placed on amiodarone drip. Patient will be admitted to ICU. Cardiology consulted. We will further recommendations from heel seat sander. --Hyperkalemia. Patient given calcium gluconate and bicarb in the ER. Repeat levels indicates rising values of potassium. Lokelma x1 dose ordered. Nephrology consulted. Will trend serial potassiums. Will await further recommendations from rubber compounder formulator. --Acute encephalopathy. Unclear etiology. Resolved at time of assessment. Continue supportive care. -- Syncope. Likely secondary to arrhythmia. We will rule out other possible causes. Patient reports previous episode of fall secondary to dizziness. Echocardiogram pending to assess cardiac structures and function. Carotid Doppler to rule out any carotid artery stenosis. We will get some orthostatic vital signs. Fall precautions. --DM2. BS monitoring with sliding scale insulin. --Hypertension. Patient currently hypotensive. Patient given bolus IV hydration in the ER. We will hold off on BP meds. We will continue to monitor blood pressure levels. --History of seizures. Seizure precautions. Continue home medications. -GERD. Continue Protonix. --Nicotine dependence. Patient counseled on tobacco cessation and placed on nicotine patch. --Alcohol abuse. Patient denies withdrawal symptoms when he does not drink. Alcohol withdrawal assessment protocol. Continue supportive care. --Anxiety disorder\depression. Continue home medication. --History of AK. Continue aspirin. --History of prostrate cancer. Status post prostatectomy. Continue supportive care -- DVT prophylaxis with Lovenox subQ. Discharge Plan: Home Plan to discharge in: Greater than 2 days - Advance Directives Does patient have a Living Will: Yes Does patient have a Durable POA for Healthcare: Yes - Code Status/Comfort Care Code Status Assessed: Yes Physician Review: Patient Assessed, Agree with Above Assessment and Plan Critical Care: Yes
[2023-04-21] MEDS ORDERED: ACETAMINOPHEN 325 MG TABLET ONE (18:26)
[2023-04-21] MEDS ORDERED: PANTOPRAZOLE 40 MG INJ ONE (18:26)
[2023-04-21] MEDS ORDERED: FUROSEMIDE 40 MG/4 ML VIAL ONE (18:26)
[2023-04-21] MEDS: PANTOPRAZOLE 40 MG INJ IVP SCH (18:30)
[2023-04-21 18:45] LABS: Magnesium 2.2 mg/dL (1.6-2.4); Phosphorus 4.5 mg/dL (2.5-4.9); Thyroid Stimulating Hormone 1.26 uIU/mL (0.358-3.740)
--- NOTE | 2023-04-21 20:18 | EKG ---
Test Date: 2023-04-21 Test Time: 13:16:15 Television Analyzer: CABRERA MEASUREMENT RESULTS: Intervals: Rate: 182 WI: QRSD: 110 QT: 246 QTc: 428 [place]: P: 258 WI: QRS: 168 T: 31 INTERPRETIVE STATEMENTS: SVT Pulmonary disease pattern Right bundle branch block Abnormal ECG Compared to ECG 08/31/2022 12:38:57 Sinus tachycardia no longer present Electronically Signed On 04-21-23 20:18:13 CDT by Karson Carolina
[2023-04-21] MEDS: INSULIN -REGULAR HUMAN 50 UNIT/0.5 ML ML SQ SCH (21:00)
[2023-04-21] MEDS: ASPIRIN 81 MG CHEWABLE TABLET PO SCH (21:31)
[2023-04-21] MEDS: FOLIC ACID 1 MG TABLET PO SCH (21:31)
[2023-04-21] MEDS: ENOXAPARIN 40 MG/0.4 ML SQ SCH (21:31)
[2023-04-21] MEDS: THIAMINE HCL 100 MG TABLET PO SCH (21:32)
[2023-04-21 22:14] LABS: Magnesium 1.7 mg/dL (1.6-2.4); Potassium 5.7 mEq/L (3.5-5.1)
[2023-04-21] MEDS: LORazepam 2 MG/ML VIAL IV PRN (22:56)
[2023-04-22 02:28] LABS: Magnesium 1.6 mg/dL (1.6-2.4); Potassium 4.7 mEq/L (3.5-5.1)
[2023-04-22] MEDS ORDERED: LIDOCAINE 1% MPF 5 ML VIAL ONE (03:49)
[2023-04-22] MEDS ORDERED: DILTIAZEM INJ 125 MG/25 ML 125 MG in NA CHLORIDE 0.9% 100 ML IV SCH (04:15)
[2023-04-22] MEDS ORDERED: NOREPINEPHRINE 4 MG in D5W 250 ML IV SCH (05:00)
[2023-04-22] MEDS ORDERED: dilTIAZem HCL 25 MG/5 ML VIAL IV ONE (05:32)
[2023-04-22] MEDS ORDERED: NA CHLORIDE 0.9% 100 ML ONE (05:33)
[2023-04-22 06:03] LABS: Absolute Lymphocytes (CBC) 1.1 K/uL (0.7-4.9); Hematocrit 28.9 % (39.6-49.0); Lymphocytes % 33.8 % (15.3-44.8); MPV 10.6 fL (7.6-11.3); RBC Red Blood Cell Count 2.72 M/uL (4.33-5.43)
[2023-04-22 06:22] LABS: Magnesium 1.5 mg/dL (1.6-2.4); Potassium 4.9 mEq/L (3.5-5.1)
[2023-04-22 06:23] LABS: Albumin 2.6 g/dL (3.4-5.0); Bilirubin Total 0.6 mg/dL (0.2-1.0); Potassium 5.1 mEq/L (3.5-5.1); Protein, Total 5.8 g/dL (6.4-8.2); Uric Acid 8.7 mg/dL (3.5-7.2)
[2023-04-22] MEDS ORDERED: Magnesium Sulfate 2gm IVPB 2 G/50 ML BAG IV ONE (06:38)
[2023-04-22] MEDS: INSULIN -REGULAR HUMAN 50 UNIT/0.5 ML ML SQ SCH ×4 (07:30→20:12)
[2023-04-22] MEDS: NICOTINE 21 MG/PAT TD SCH (08:00)
[2023-04-22] MEDS: ASPIRIN 81 MG CHEWABLE TABLET PO SCH (08:01)
[2023-04-22] MEDS: FOLIC ACID 1 MG TABLET PO SCH (08:01)
[2023-04-22] MEDS: PANTOPRAZOLE 40 MG INJ IVP SCH (08:01)
[2023-04-22] MEDS: THIAMINE HCL 100 MG TABLET PO SCH (08:01)
[2023-04-22] MEDS: DOCUSATE NA 100 MG CAP PO SCH ×2 (08:01→20:12)
[2023-04-22] MEDS: ENOXAPARIN 40 MG/0.4 ML SQ SCH (08:02)
[2023-04-22 08:10] LABS: Blood Morphology Comment NOTED (NOT SEEN); Macrocytosis 1+; Platelet Estimate DECR
--- NOTE | 2023-04-22 08:19 | RAD REPORT ---
EXAM DESCRIPTION: US - CP - 04/21/2023 11:47 pm CLINICAL HISTORY: Syncope, Dizziness COMPARISON: Chest Single View dated 04/21/2023; Chest Single View dated 04/22/2023 TECHNIQUE: Real-time sonographic grayscale, color duplex, and spectral wave Doppler evaluation of [facility] carotid systems was performed. FINDINGS: Normal high resistance waveforms are noted in both external carotid arteries. The common c arotid arteries and internal carotid arteries show normal low resistance waveforms, with suggestion o f pulsus biferiens along some segments of both internal carotid arteries. Mild smooth hyperechoic calcified plaque formation is seen at both carotid bulbs. Peak systolic veloc ity less than 125 cm/ sec bilaterally. ICA/CCA peak systolic ratios less than 2.0 bilaterally. Antegrade flow seen in both vertebral arteries. IMPRESSION: Mild atherosclerotic changes noted. Less than 50% stenosis of the ICAs bilaterally. Suggestion of pulsus biferiens along some segments of both internal carotid arteries, which could be related to proximal factors such as aortic stenosis, or aortic valve pathology. Please correlate cli nically. Evaluation of carotid artery stenosis, if any, is reported based on consensus recommendations of the Society of Radiologists in Ultrasound (Evan et al., Radiology, 2003)
[2023-04-22] MEDS: SOTALOL HCL 80 MG TAB PO SCH (08:38)
[2023-04-22] MEDS ORDERED: NOREPINEPHRINE BITARTRATE/D5W 4 MG/250 ML BAG IV SCH (09:00)
[2023-04-22] MEDS ORDERED: DRISDOL (VITAMIN D=ERGOCALCIFEROL) 50000 UNIT CAP PO SCH (09:00)
[2023-04-22] MEDS ORDERED: ALBUMIN HUMAN 25% 100 ML IV ONE (10:48)
--- NOTE | 2023-04-22 10:49 | P.CNS ---
Date of Consult: 04/22/23 Reason for Consult: ARMAND, hyperkalemia, hypotension Requesting Physician: Debbie Sevilla Chief Complaint: Dizziness, AMS History of Present Illness: Patient is a 63-year-old male whose medical hx is largely obtained through chart review as pt remains lethargic but he has a reported past medical history significant for cardiovascular disease, NIDDM, chronic hypertension, seizures who presented with complaint of low BP/hypotension, dizziness and other. Pt had reported falls, near syncope and other. Pt has Losartan listed as a BP medication but when questioned on this, pt reports was not taking this but another medication. Unclear how accurate this, when asked if pt was adhering to any holding parameters on BP lowering agents, pt reports he was taking all meds even when BP was low. Allergies No Known Allergies Allergy (Unverified 08/30/22 15:42) Home Medications: Aspirin 1 tab PO DAILY 08/30/22 Escitalopram [Lexapro*] 1 tab PO DAILY 08/30/22 Losartan Potassium 1 tab PO DAILY 08/30/22 Metformin HCl [Metformin HCl ER] 1 tab PO BID 08/30/22 Pantoprazole [Protonix Tab*] 1 tab PO DAILY 08/30/22 Spironolactone [Aldactone] 25 mg PO DAILY 04/21/23 - Past Medical/Surgical History Diabetic: Yes -: HTN -: Prostate Cancer -: NIDDM2 -: HTN -: ETOH -: Left Shoulder torn rotator cuff -: Left Hip Replacement -: Prostatectomy - Family History Mother Medical History: Lung disease, Cancer Notes: leukemia Father Medical History: Heart disease Notes: afib. alcoholic Brother Medical History: Cancer Notes: pancreatic cancer - Social History Smoking Status: Current every day smoker Alcohol use: Yes CD- Drugs: No Caffeine use: Yes Place of Residence: Home Review of Systems General: Weakness, As per HPI Respiratory: Unremarkable Cardiovascular: As per HPI Neurological: Weakness, Other (Confusion, lethargy), As per HPI Physical Examination Temp Pulse Resp BP Pulse Ox 98.0 F 116 H 22 H 127/77 96 04/22/23 04:00 04/22/23 06:30 04/22/23 06:30 04/22/23 06:30 04/22/23 06:30 General: Other (Lethargic, but awake) HEENT: Atraumatic, Normocephalic Neck: Supple Respiratory: Clear to auscultation bilaterally, Normal air movement Cardiovascular: Other (Non tachy when seen but irregular) Gastrointestinal: Soft and benign, Non-distended, No tenderness, No guarding Musculoskeletal: No swelling, No contractures, No tenderness Integumentary: No rashes Neurological: Other (Lethargic but awake, responds slowly but answers some questions, mild encephalopathy, no tremors or myoclonus) Laboratory Data (last 24 hrs) 04/21/23 16:40: Sodium 133 L, Potassium 6.4 H*, BUN 25 H, Creatinine 1.32 H, Glucose 95 04/21/23 14:55: Sodium Cancelled, Potassium Cancelled, BUN Cancelled, Creatinine Cancelled, Glucose Cancelled 04/21/23 14:55: Sodium 135 L, Potassium 6.1 H*, BUN 26 H, Creatinine 1.40 H, Glucose 76, Magnesium 1.2 L, Total Bilirubin 0.7, AST 70 H, ALT 44, Alkaline Phosphatase 168 H 04/21/23 13:33: PT 11.4, INR 0.96, APTT 27.6 04/21/23 13:33: WBC 4.30, Hgb 10.2 L, Hct 30.7 L, Plt Count 99 L Conclusions/Impression: A/P) 1. Stage 1 ARMAND in the setting of hypotension, Afib, possible recent ARB use/other with Cr level downward trending with improvement in hemodynamics. UA on admission unremerkable. 2. Hyperkalemia in the setting of ARMAND, possible recent ARB/aldosterone antagonist use use, other -level better s/p medical therapy 3. Hypomagnesemia -repleted and targeting Mg > 2.0 in the setting of Afib 3. Dizziness and giddiness, hypotension unspecified in the setting of Afib, other -management per Cardiology. Holding anti hypertensives. No overt pulm edema on imaging on admission or dyspnea on exam, will cautiously bolus crystalloids/colloids as indicated/tolerated 4. Elevated BNP in the setting of Afib with RVR, other -f/u echo and cardiology reccs Hilario Cannon MD, [facility]
[2023-04-22] MEDS ORDERED: DIGOXIN 0.25 MG/ML AMP IV ONE (11:07)
--- NOTE | 2023-04-22 13:57 | RAD REPORT ---
EXAM DESCRIPTION: RAD - Chest Single View - 04/22/2023 5:00 am CLINICAL HISTORY: The patient is 63 years old and is Male; central line placement TECHNIQUE: Single view of the chest. COMPARISON: No relevant prior studies available. FINDINGS: Lungs: No pulmonary vascular congestion or consolidation. Pleural space: Unremarkable. No pneumothorax. Heart: Unremarkable. No cardiomegaly. Mediastinum: Unremarkable. Bones/joints: No acute fracture visualized. Tubes, lines and devices: Right IJ line is in the SVC. Upper abdomen: No free air in the visualized upper abdomen. IMPRESSION: 1. Right IJ line is in the SVC. No pneumothorax. 2. No acute cardiopulmonary process identified. Electronically signed by: Rose Shetty MD 04/22/2023 5:21 AM CDT Due to temporary technical issues with the PACS/Fluency reporting system, reports are being signed by the in house radiologist without review as a courtesy to ensure prompt reporting. The interpreting r adiologist is fully responsible for the content of the report.
[2023-04-22 19:26] LABS: Specific Gravity 1.015 (1.005-1.030); Urine Bacteria None Seen /HPF (<20); Urine Bilirubin NEGATIVE (Negative); Urine Blood Negative (Negative); Urine Clarity Clear (Clear); Urine Color Yellow (Yellow); Urine Glucose NEGATIVE (Negative); Urine Mucus Slight /HPF (None Seen); Urine Protein TRACE (Negative); Urine RBC <5 /HPF (None Seen); Urine Urobilinogen Normal (Normal); Urine pH 5.5 (5.0-7.0)
[2023-04-22 19:51] LABS: UR PROTEIN 44.5 mg/dL (<11.9); Urine Protein/Creatinine Ratio 0.72 ratio (<0.15)
--- NOTE | 2023-04-22 21:35 | CON ---
Date of Consultation: 04/22/2023 Reason For Consultation: Atrial fibrillation. History Of Present Illness: This is a 63-year-old male with a past medical history of coronary arter y disease, diabetes, hypertension, seizure disorder, presented with altered mental status. He appare ntly had a seizure episode. He was found to have atrial fibrillation with rapid ventricular response as I was consulted from by bedside. His heart rate is acceptable. Continues to be in atrial fibril lation. Does not have any chest pain or shortness of breath. Past Medical History: As outlined above in HPI. Medications: Refer to reconciliation sheet for detailed list. Allergies: NO KNOWN DRUG ALLERGIES. Family History: No premature coronary artery disease or cancer. Social History: He is an active smoker. Does not use any drugs or drinks alcohol on a regular basis . Review of Systems: All systems reviewed are negative except as mentioned in HPI. Physical Examination: Vital Signs: Reviewed. Head and Neck: Pupils are equal, reactive to light. Intact eye movements. No JVD. No cervical lym phadenopathy. Neck: Supple. Thyroid is not enlarged. Lungs: Clear to auscultation bilaterally. No rhonchi, wheezing, or crackles. No accessory muscle u se. Heart: Irregularly irregular. No extra sounds. Abdomen: Soft, nontender. Bowel sounds positive. No organomegaly. No masses or hernia. No rigidi ty or rebound. Extremities: No clubbing, cyanosis. Intact pulses. Skin: No rash. Neurologic: Alert, awake, and oriented x3. No focal deficits appreciated. Investigations: BUN 21, creatinine 1.1, and NT-proBNP is 4074. Troponin is negative and his hemoglo bin is 9.8. Assessment/recommendations: 1.Atrial fibrillation with rapid ventricular response. Heart rate is better. Discontinue Cardizem drip. Start sotalol 80 mg twice a day and monitor BUN, creatinine and monitor for any QTc interval p rolongation and also recommend to start on anticoagulation with Eliquis 5 mg twice a day. We will pl an to do a DALJIT-guided cardioversion before discharge if he does not convert in sinus rhythm on sotalo l. 2.Elevated NT-proBNP, bile leak, chronic diastolic heart failure. Obtain an echo to further evaluat e. /MODL Voice ID: [id number] Report ID: [id number]
[2023-04-23] MEDS: LORazepam 2 MG/ML VIAL IV PRN ×3 (01:34→23:04)
[2023-04-23 05:32] LABS: Hematocrit 26.7 % (39.6-49.0); Lymphocytes % 39.5 % (15.3-44.8); MCV 106.3 fL (80-100); MPV 11.2 fL (7.6-11.3); RBC Red Blood Cell Count 2.51 M/uL (4.33-5.43)
[2023-04-23 05:55] LABS: Blood Morphology Comment NOTED (NOT SEEN); Macrocytosis 1+; Platelet Estimate DECR; White Blood Cell Scan OK (OK)
[2023-04-23] MEDS: MIDODRINE HCL 5 MG TABLET PO SCH ×4 (06:23→17:20)
[2023-04-23] MEDS: SOTALOL HCL 80 MG TAB PO SCH ×2 (06:23→17:20)
[2023-04-23 06:30] LABS: Albumin 2.3 g/dL (3.4-5.0); Bilirubin Total 0.6 mg/dL (0.2-1.0); Magnesium 1.4 mg/dL (1.6-2.4); Potassium 4.7 mEq/L (3.5-5.1); Protein, Total 5.6 g/dL (6.4-8.2)
--- NOTE | 2023-04-23 06:41 | ECHO ---
HEIGHT: 6 ft 0 in WEIGHT: 207 lb 0 oz DATE OF STUDY: 04/22/[address]: Debbie Sevilla 2-DIMENSIONAL: YES M.MODE: YES DOPPLER: YES COLOR FLOW: YES TDS: PORTABLE: YES DEFINITY: BUBBLE STUDY: DIAGNOSIS: ATRIAL FIBRILLATION WITH RAPID VENTRICULAR RESPONSE, NEAR SYNCOPE CARDIAC HISTORY: CATHERIZATION: NO SURGERY: NO PROSTHETIC VALVE: NO PACEMAKER: NO MEASUREMENTS (cm) DIASTOLIC (NORMALS) SYSTOLIC (NORMALS) IVSd 1.0 (0.6-1.2) LA Diam 3.1 (1.9-4.0) LVEF 50% LVIDd 5.0 (3.5-5.7) LVIDs 3.7 (2.0-3.5) %FS 25% LVPWd 1.0 (0.6-1.2) Ao Diam 2.9 (2.0-3.7) 2 DIMENSIONAL ASSESSMENT: RIGHT ATRIUM: NORMAL LEFT ATRIUM: NORMAL RIGHT VENTRICLE: NORMAL LEFT VENTRICLE: NORMAL TRICUSPID VALVE: MILD TRICUSPID REGURGITATION MITRAL VALVE: MILD MITRAL REGURGITATION PULMONIC VALVE: NORMAL AORTIC VALVE: NORMAL PERICARDIAL EFFUSION: NONE AORTIC ROOT: NORMAL LEFT VENTRICULAR WALL MOTION: NORMAL (ATRIAL FIBRILLATION) DOPPLER/COLOR FLOW: SEE BELOW COMMENTS: 1. NORMAL LEFT VENTRICULAR EJECTION FRACTION 50-55% 2. ATRIAL FIBRILLATION 3. MILD MITRAL REGURGITATION 4. MILD TRICUSPID REGURGITATION TECHNOLOGIST: DANNI FRANCES
[2023-04-23] MEDS: INSULIN -REGULAR HUMAN 50 UNIT/0.5 ML ML SQ SCH ×4 (07:30→20:36)
[2023-04-23] MEDS: NICOTINE 21 MG/PAT TD SCH (07:55)
[2023-04-23] MEDS: PANTOPRAZOLE 40 MG INJ IVP SCH (07:57)
[2023-04-23] MEDS: THIAMINE HCL 100 MG TABLET PO SCH (07:57)
[2023-04-23] MEDS: ASPIRIN 81 MG CHEWABLE TABLET PO SCH (07:57)
[2023-04-23] MEDS: DOCUSATE NA 100 MG CAP PO SCH ×2 (07:57→20:34)
[2023-04-23] MEDS: FOLIC ACID 1 MG TABLET PO SCH (07:57)
[2023-04-23] MEDS: ENOXAPARIN 40 MG/0.4 ML SQ SCH (08:19)
--- NOTE | 2023-04-23 16:42 | PN ---
Date of Progress Note: 04/23/2023 Subjective: Seen by bedside. Doing clinically better compared to sinus rhythm. Review of Systems: No chest pain, shortness of breath, orthopnea, or cough. No nausea, vomiting, diarrhea. All other s ystems reviewed and they were negative. Objective: Vital Signs: Reviewed. Head and Neck: Pupils are equal, reactive to light. Intact eye movements. No JVD. No cervical lym phadenopathy. Neck is supple. Thyroid is not enlarged. Lungs: Clear to auscultation bilaterally. No rhonchi, wheezing, or crackles. No accessory muscle u se. Heart: Regular rate and rhythm. No extra sounds. Abdomen: Soft, nontender. Bowel sounds positive. No organomegaly. No masses or hernia. No rigidi ty or rebound. Extremities: Trace edema bilaterally. No clubbing or cyanosis. Intact pulses. Skin: No rashes. Neurologic: Alert, awake. No acute focal deficits appreciated. Investigations: Labs reviewed. Assessment And Recommendations: 1.Atrial fibrillation with rapid ventricular response. He converted to sinus rhythm. Continue sota lol and start Eliquis 5 mg twice a day and discontinue the Lovenox. 2.Elevated troponin with chronic diastolic heart failure, appears to be euvolemic. Continue current therapy. SR/MODL Voice ID: [id number] Report ID: [id number]
--- NOTE | 2023-04-23 19:02 | P.PN ---
Subjective Date of Service: 04/22/23 Pt is a 63-year-old gentleman who came to the hospital with atrial fibrillation with rapid ventricular response. He had a hard time getting patient is rate controlled and patient has been hypotensive as well. Continue with medication for delirium tremens. Patient also with pancytopenia that needs to be further worked up as well. Review of Systems 10-point ROS is otherwise unremarkable Physical Examination - Vital Signs Temperature: 97.4 F Blood Pressure: 109/66 Pulse: 83 Respirations: 27 Pulse Ox (%): 98 - Physical Exam General: Alert, In no apparent distress, Oriented x3 Respiratory: Clear to auscultation bilaterally, Normal air movement Cardiovascular: Irregular heart rate/rhythm Gastrointestinal: Normal bowel sounds, Soft and benign, Non-distended, No tenderness Musculoskeletal: No clubbing, No swelling, No tenderness Integumentary: No rashes Neurological: Sensation intact, Cranial nerves 3-12 intact - Studies Microbiology Data (last 24 hrs): 04/21/23 16:21 Blood - Blood Anaerobic Blood Culture - Final Medications List Reviewed: Yes Assessment & Plan - Problems (Diagnosis) (1) Atrial fibrillation with RVR Current Visit: Yes Status: Acute (2) Hypotension Current Visit: Yes Status: Acute (3) Alcohol abuse Current Visit: Yes Status: Acute (4) Delirium tremens Current Visit: Yes Status: Acute (5) Macrocytic anemia Current Visit: Yes Status: Acute (6) Thrombocytopenia Current Visit: Yes Status: Acute (7) Hypoalbuminemia Current Visit: Yes Status: Acute (8) Leukopenia Current Visit: Yes Status: Acute (9) Pancytopenia Current Visit: Yes Status: Acute (10) Hypomagnesemia Current Visit: Yes Status: Acute - Plan Plan: 1. Continue with medication for rate control. Cardiology started the amiodarone. They went ahead and change the Cardizem to sotalol. Patient converted to sinus rhythm 2. Continue monitoring for DTs; start Librium 3. Abdominal ultrasound to monitor for what appears to be early cirrhosis 4. Check ammonia level for possible hepatic encephalopathy 5. Patient with pancytopenia. Probably related to alcohol abuse. Will need to follow-up with hematology mainly to check folic acid level but unable to do that at this hospital. 6. Replace electrolytes as needed 7. GI and DVT prophylaxis Patient had new onset episode of atrial fibrillation with rapid ventricular response. Patient was tried on IV amiodarone but patient was not converting into a sinus rhythm. Echocardiogram has been pending. Decision was made to change to sotalol twice a day. Continue with anticoagulation. However, patient with thrombocytopenia and pancytopenia which needs to be looked into. Patient looks to be withdrawing slightly. We will put him on Librium. May benefit from banana bag and folic acid. Unable to check folic acid level. Ahead and supplement folic acid because of macrocytic anemia. Also check ammonia level. Patient requires inpatient hospitalization. - Advance Directives Does patient have a Living Will: Yes Does patient have a Durable POA for Healthcare: Yes - Code Status/Comfort Care Code Status Assessed: Yes Code Status: Full Code Physician Review: Patient Assessed, Agree with Above Assessment and Plan Critical Care: No Time Spent Managing PTS Care (In Minutes): 45
--- NOTE | 2023-04-23 19:22 | P.PN ---
Date of Service: 04/23/23 Subjective Patient converted into a sinus rhythm with sotalol. However, patient has been confused as well. He spit at the nurse and was verbally abusive to the nurse. We will go ahead and continue with Librium. Patient wanting to go the alcohol rehab facility. Review of Systems 10-point ROS is otherwise unremarkable Physical Examination - Vital Signs reviewed - Physical Exam General: Alert, In no apparent distress, Oriented x2; confused Respiratory: Clear to auscultation bilaterally, Normal air movement Cardiovascular: Regular heart rate/rhythm Gastrointestinal: Normal bowel sounds, Soft and benign, Non-distended, No tenderness Musculoskeletal: No clubbing, No swelling, No tenderness Neurological: No focal deficits; generalized weakness Assessment & Plan - Problems (Diagnosis) (1) Atrial fibrillation with RVR Current Visit: Yes Status: Acute (2) Hypotension Current Visit: Yes Status: Acute (3) Alcohol abuse Current Visit: Yes Status: Acute (4) Delirium tremens Current Visit: Yes Status: Acute (5) Macrocytic anemia Current Visit: Yes Status: Acute (6) Thrombocytopenia Current Visit: Yes Status: Acute (7) Hypoalbuminemia Current Visit: Yes Status: Acute (8) Leukopenia Current Visit: Yes Status: Acute (9) Pancytopenia Current Visit: Yes Status: Acute (10) Hypomagnesemia Current Visit: Yes Status: Acute - Plan Plan: 1. Continue with sotalol twice a day and hold anticoagulation because of significant thrombocytopenia 2. Start Librium 3. Abdominal ultrasound pending 4. Check ammonia level for possible hepatic encephalopathy 5. Pancytopenia related to alcohol abuse. Will need to follow-up with hematology; check folic acid level 6. Replace electrolytes as needed 7. GI and DVT prophylaxis Patient appears to be in DTs. He is acting very awkwardly compared to how he was yesterday. Continue with Librium 3 times daily. Ammonia level pending. Abdominal ultrasound pending. Need to get patient working with physical therapy as well.
[2023-04-23] MEDS: APIXABAN 5 MG TABLET PO SCH (20:34)
--- NOTE | 2023-04-23 21:06 | P.PN ---
Date of Service: 04/23/23 Vital Signs Temp Pulse Resp BP Pulse Ox 97.7 F 80 27 H 104/62 100 04/23/23 20:00 04/23/23 20:00 04/23/23 19:15 04/23/23 20:00 04/23/23 20:00 Medications Acetaminophen (Acetaminophen 325 Mg Tablet) 650 mg PO Q6H PRN PRN Reason: TEMP > 100.4' F Last Admin: 04/21/23 18:42 Dose: 650 mg Hydrocodone Bitart/Acetaminophen (Hydrocodone/Apap 5/325 Mg Tab) 1 tab PO Q6H PRN PRN Reason: Pain scale 5-7 (Moderate) Apixaban (Apixaban 5 Mg Tablet) 5 mg PO BID [facility] Last Admin: 04/23/23 20:34 Dose: Not Given Aspirin (Aspirin 81 Mg Chewable Tablet) 81 mg PO DAILY [facility] Last Admin: 04/23/23 07:57 Dose: 81 mg Chlordiazepoxide HCl (Chlordiazepoxide Hcl 5 Mg Cap) 20 mg PO Q6HR [facility] Docusate Sodium (Docusate Na 100 Mg Cap) 100 mg PO BID [facility] Last Admin: 04/23/23 20:34 Dose: Not Given Ergocalciferol (Drisdol (Vitamin D=Ergocalciferol) 34712 Unit Cap) 50,000 unit PO Q7D [facility] Last Admin: 04/22/23 08:39 Dose: 50,000 unit Folic Acid (Folic Acid 1 Mg Tablet) 1 mg PO DAILY [facility] Last Admin: 04/23/23 07:57 Dose: 1 mg Norepinephrine/Dextrose (Levophed 4 Mg/250 Ml-D5w) 4 mg in 250 mls @ 33.509 mls/hr IV TITR [facility]; Protocol Folic Acid 1 mg/ Sodium (Chloride) 50.2 mls @ 200 mls/hr IV DAILY [facility] Insulin Human Regular (Insulin -Regular Human 50 Unit/0.5 Ml Ml) 0 unit SQ ACHS [facility]; Protocol Last Admin: 04/23/23 20:36 Dose: 3 unit Lorazepam (Lorazepam 2 Mg/Ml Vial) 1 mg IV Q6H PRN PRN Reason: ANXIETY Last Admin: 04/23/23 07:55 Dose: 1 mg Midodrine (Midodrine Hcl 5 Mg Tablet) 5 mg PO TIDWM [facility] Last Admin: 04/23/23 17:20 Dose: 5 mg Nicotine (Nicotine 21 Mg/Pat) 21 mg TD DAILY [facility] Last Admin: 04/23/23 07:55 Dose: 21 mg Ondansetron HCl (Ondansetron 4 Mg/2 Ml Vial) 4 mg IV Q6HP PRN PRN Reason: NAUSEA / VOMITING Last Admin: 04/22/23 19:36 Dose: 4 mg Pantoprazole Sodium (Pantoprazole 40 Mg Inj) 40 mg IVP DAILY [facility]; Protocol Last Admin: 04/23/23 07:57 Dose: 40 mg Sodium Chloride (Flush Normal Saline 10 Ml) 10 ml IV BID [facility] Last Admin: 04/23/23 20:36 Dose: 10 ml Sodium Chloride (Sodium Chloride 0.9% 10ml Inj) 10 ml IV UD PRN PRN Reason: Diluant Sotalol HCl (Sotalol Hcl 80 Mg Tab) 80 mg PO BID 6AM 6PM [facility] Last Admin: 04/23/23 17:20 Dose: 80 mg Thiamine HCl (Thiamine Hcl 100 Mg Tablet) 100 mg PO DAILY [facility] Last Admin: 04/23/23 07:57 Dose: 100 mg Microbiology Results 04/21/23 16:21 Blood - Blood Aerobic Blood Culture - Preliminary No growth in 24 hours. 04/21/23 16:21 Blood - Blood Anaerobic Blood Culture - Final 04/21/23 13:40 Blood - Blood Aerobic Blood Culture - Preliminary No growth in 24 hours. 04/21/23 13:40 Blood - Blood Anaerobic Blood Culture - Preliminary No growth in 24 hours. Assessment/ Plan: Nephrology No dyspnea No chest pain No acute events overnight Limited IH/ ROS due to AMS Vitals, medications, blood work and imaging reviewed in the chart. NAD. NCAT. MMM. Neck supple. Normal respiratory effort. RRR. Abd ND. No C/C. LE Edema none. No rash. Somnolent. Minimal speech. 1. NORMAL LEFT VENTRICULAR EJECTION FRACTION 50-55% 2. ATRIAL FIBRILLATION 3. MILD MITRAL REGURGITATION 4. MILD TRICUSPID REGURGITATION Stage I ARMAND improving CKD II with Proteinuria -No NSAIDs Hyponatremia -Encourage nutrition Hypomagnesemia -Replete as ordered -Start SloMag BID Hypotension -Continue Midodrine PreDM -No sugar diet Anemia in chronic illness -Monitor H&H -PRBC prn
[2023-04-23] MEDS: NA CHLORIDE 0.9% 1,000 ML IV SCH (23:04)
[2023-04-23] MEDS: chlordiazePOXIDE HCl 5 MG CAP PO SCH (23:15)
[2023-04-23] MEDS: MAGNESIUM CHLORIDE 64 MG TAB PO SCH (23:15)
[2023-04-24 05:32] LABS: Absolute Lymphocytes (CBC) 1.2 K/uL (0.7-4.9); Hematocrit 28.3 % (39.6-49.0); Lymphocytes % 35.8 % (15.3-44.8); MCV 105.8 fL (80-100); MPV 11.1 fL (7.6-11.3); RBC Red Blood Cell Count 2.67 M/uL (4.33-5.43)
[2023-04-24 05:55] LABS: Albumin 2.3 g/dL (3.4-5.0); Bilirubin Total 0.8 mg/dL (0.2-1.0); Magnesium 1.3 mg/dL (1.6-2.4); Potassium 4.6 mEq/L (3.5-5.1); Protein, Total 5.6 g/dL (6.4-8.2)
[2023-04-24 05:57] LABS: Ferritin 903.2 ng/mL (26-388); Uric Acid 6.4 mg/dL (3.5-7.2)
[2023-04-24] MEDS: chlordiazePOXIDE HCl 5 MG CAP PO SCH ×3 (06:16→17:11)
[2023-04-24] MEDS: SOTALOL HCL 80 MG TAB PO SCH ×2 (06:16→17:11)
[2023-04-24] MEDS ORDERED: chlordiazePOXIDE HCl 5 MG CAP PO ONE (06:20)
[2023-04-24] MEDS: INSULIN -REGULAR HUMAN 50 UNIT/0.5 ML ML SQ SCH ×4 (07:30→21:19)
--- NOTE | 2023-04-24 08:17 | RAD REPORT ---
EXAM DESCRIPTION: US - Abdomen Exam Complete - 04/24/2023 12:35 am CLINICAL HISTORY: Cirrhosis COMPARISON: 03/11/2011 ultrasound. TECHNIQUE: Sonographic grayscale and color flow images of the abdomen were obtained. FINDINGS: Gallbladder size is normal. Shadowing mobile gallstones and sludge. No wall thickening or pericholecystic fluid. Common bile duct is normal in caliber, 5 millimeter, with no common duct stone identified. Diffuse hepatic parenchymal hyperechogenicity, suggesting steatosis, with mild heterogeneity. No appr eciable focal lesions. No intrahepatic biliary ductal dilation. Spleen is normal in size, measuring 10.9 cm in long axis. No hydronephrosis or suspicious mass in either kidney Aorta is normal is size. No ascites or bulky lymphadenopathy. IMPRESSION: Cholelithiasis with sludge. Hepatic parenchymal hyperechogenicity and mild heterogeneity, suggesting steatosis or medical hepatoc ellular disease. No appreciable focal lesions. No intra or extrahepatic biliary ductal dilation.
[2023-04-24] MEDS: DOCUSATE NA 100 MG CAP PO SCH ×2 (09:00→21:00)
[2023-04-24] MEDS ORDERED: DRISDOL (VITAMIN D=ERGOCALCIFEROL) 50000 UNIT CAP PO SCH (09:00)
[2023-04-24] MEDS: ASPIRIN 81 MG CHEWABLE TABLET PO SCH (09:07)
[2023-04-24] MEDS: MAGNESIUM CHLORIDE 64 MG TAB PO SCH ×2 (09:08→21:19)
[2023-04-24] MEDS: NICOTINE 21 MG/PAT TD SCH (09:08)
[2023-04-24] MEDS: MIDODRINE HCL 5 MG TABLET PO SCH ×3 (09:08→17:00)
[2023-04-24] MEDS: THIAMINE HCL 100 MG TABLET PO SCH (09:08)
[2023-04-24] MEDS: Magnesium Sulfate 2gm IVPB 2 G/50 ML BAG IV SCH ×2 (09:09→12:45)
[2023-04-24] MEDS: PANTOPRAZOLE 40 MG INJ IVP SCH (09:09)
[2023-04-24] MEDS: FOLIC ACID 1 MG in NA CHLORIDE 0.9% 50 ML IV SCH (09:10)
[2023-04-24] MEDS: SOD FERRIC GLUC COMPLX/SUCROSE 125 MG in NA CHLORIDE 0.9% 100 ML IV SCH (09:10)
[2023-04-24] MEDS: APIXABAN 5 MG TABLET PO SCH ×2 (09:12→21:19)
[2023-04-24 10:40] VITALS: BMI 29.2
[2023-04-24] MEDS: NA CHLORIDE 0.9% 1,000 ML IV SCH (17:10)
[2023-04-24] MEDS ORDERED: MELATONIN 5 MG TABLET PO PRN (22:02)
[2023-04-25 00:30] VITALS: O2SAT 96
[2023-04-25] MEDS: chlordiazePOXIDE HCl 5 MG CAP PO SCH ×4 (00:47→17:06)
[2023-04-25] MEDS: HYDROCODONE/APAP 5/325 MG TAB PO PRN ×2 (03:24→21:13)
[2023-04-25 05:52] LABS: Absolute Lymphocytes (CBC) 1.3 K/uL (0.7-4.9); Hematocrit 28.4 % (39.6-49.0); Lymphocytes % 29.9 % (15.3-44.8); MPV 10.9 fL (7.6-11.3); RBC Red Blood Cell Count 2.68 M/uL (4.33-5.43)
[2023-04-25 06:05] LABS: Albumin 2.2 g/dL (3.4-5.0); Bilirubin Total 1.1 mg/dL (0.2-1.0); Magnesium 1.7 mg/dL (1.6-2.4); Phosphorus 1.9 mg/dL (2.5-4.9); Potassium 4.8 mEq/L (3.5-5.1); Protein, Total 5.7 g/dL (6.4-8.2)
[2023-04-25 06:13] LABS: Protime INR 1.25
[2023-04-25] MEDS: SOTALOL HCL 80 MG TAB PO SCH ×2 (06:51→17:06)
[2023-04-25] MEDS: INSULIN -REGULAR HUMAN 50 UNIT/0.5 ML ML SQ SCH ×4 (07:30→22:41)
[2023-04-25] MEDS ORDERED: POTASS/SODIUM PHOSPHATE 1 PKT POWD.PACK PO ONE (08:00)
[2023-04-25] MEDS ORDERED: MAGNESIUM SULFATE 1 gm IVPB 1 GM/100 ML BAG IV ONE (08:00)
[2023-04-25] MEDS: POTASS/SODIUM PHOSPHATE 1 PKT POWD.PACK PO SCH ×3 (09:00→11:00)
[2023-04-25] MEDS: FOLIC ACID 1 MG in NA CHLORIDE 0.9% 50 ML IV SCH (09:24)
[2023-04-25] MEDS: ASPIRIN 81 MG CHEWABLE TABLET PO SCH (09:24)
[2023-04-25] MEDS: SOD FERRIC GLUC COMPLX/SUCROSE 125 MG in NA CHLORIDE 0.9% 100 ML IV SCH (09:24)
[2023-04-25] MEDS: PANTOPRAZOLE 40 MG INJ IVP SCH (09:24)
[2023-04-25] MEDS: MIDODRINE HCL 5 MG TABLET PO SCH ×3 (09:24→17:06)
[2023-04-25] MEDS: THIAMINE HCL 100 MG TABLET PO SCH (09:24)
[2023-04-25] MEDS: MAGNESIUM CHLORIDE 64 MG TAB PO SCH ×2 (09:24→21:13)
[2023-04-25] MEDS: APIXABAN 5 MG TABLET PO SCH ×2 (09:24→21:14)
[2023-04-25] MEDS: NICOTINE 21 MG/PAT TD SCH (09:24)
[2023-04-25] MEDS: DOCUSATE NA 100 MG CAP PO SCH ×2 (09:24→21:13)
[2023-04-25] MEDS: NA CHLORIDE 0.9% 1,000 ML IV SCH (17:06)
--- NOTE | 2023-04-25 22:18 | P.PN ---
Date of Service: 04/25/23 Vital Signs Temp Pulse Resp BP Pulse Ox 97.7 F 74 18 91/54 L 96 04/25/23 20:00 04/25/23 20:00 04/25/23 21:13 04/25/23 20:00 04/25/23 21:13 Medications Acetaminophen (Acetaminophen 325 Mg Tablet) 650 mg PO Q6H PRN PRN Reason: TEMP > 100.4' F Last Admin: 04/21/23 18:42 Dose: 650 mg Hydrocodone Bitart/Acetaminophen (Hydrocodone/Apap 5/325 Mg Tab) 1 tab PO Q6H PRN PRN Reason: Pain scale 5-7 (Moderate) Last Admin: 04/25/23 21:13 Dose: 1 tab Apixaban (Apixaban 5 Mg Tablet) 5 mg PO BID [facility] Last Admin: 04/25/23 21:14 Dose: 5 mg Aspirin (Aspirin 81 Mg Chewable Tablet) 81 mg PO DAILY [facility] Last Admin: 04/25/23 09:24 Dose: 81 mg Chlordiazepoxide HCl (Chlordiazepoxide Hcl 5 Mg Cap) 20 mg PO Q6HR [facility] Last Admin: 04/25/23 17:06 Dose: 20 mg Docusate Sodium (Docusate Na 100 Mg Cap) 100 mg PO BID [facility] Last Admin: 04/25/23 21:13 Dose: 100 mg Ergocalciferol (Drisdol (Vitamin D=Ergocalciferol) 32829 Unit Cap) 50,000 unit PO Q7D [facility] Last Admin: 04/24/23 09:08 Dose: 50,000 unit Norepinephrine/Dextrose (Levophed 4 Mg/250 Ml-D5w) 4 mg in 250 mls @ 33.509 mls/hr IV TITR [facility]; Protocol Folic Acid 1 mg/ Sodium (Chloride) 50.2 mls @ 200 mls/hr IV DAILY [facility] Last Admin: 04/25/23 09:24 Dose: 50.2 mls Sodium Chloride (Ns 1000 Ml Ivbag) 1,000 mls @ 50 mls/hr IV .Q20H [facility] Last Admin: 04/25/23 17:06 Dose: 1,000 mls Ferric Sodium Gluconate Complex 125 mg/ Sodium Chloride 110 mls @ 100 mls/hr IV DAILY [facility] Stop: 05/01/23 10:05 Last Admin: 04/25/23 09:24 Dose: 110 mls Insulin Human Regular (Insulin -Regular Human 50 Unit/0.5 Ml Ml) 0 unit SQ ACHS [facility]; Protocol Last Admin: 04/25/23 16:30 Dose: Not Given Lorazepam (Lorazepam 2 Mg/Ml Vial) 1 mg IV Q6H PRN PRN Reason: ANXIETY Last Admin: 04/23/23 23:04 Dose: 1 mg Magnesium Chloride (Magnesium Chloride 64 Mg Tab) 64 mg PO BID [facility] Last Admin: 04/25/23 21:13 Dose: 64 mg Melatonin (Melatonin 5 Mg Tablet) 10 mg PO BEDTIME PRN PRN PRN Reason: INSOMNIA Last Admin: 04/25/23 21:13 Dose: 10 mg Midodrine (Midodrine Hcl 5 Mg Tablet) 5 mg PO TIDWM [facility] Last Admin: 04/25/23 17:06 Dose: 5 mg Nicotine (Nicotine 21 Mg/Pat) 21 mg TD DAILY [facility] Last Admin: 04/25/23 09:24 Dose: 21 mg Ondansetron HCl (Ondansetron 4 Mg/2 Ml Vial) 4 mg IV Q6HP PRN PRN Reason: NAUSEA / VOMITING Last Admin: 04/22/23 19:36 Dose: 4 mg Pantoprazole Sodium (Pantoprazole 40 Mg Inj) 40 mg IVP DAILY [facility]; Protocol Last Admin: 04/25/23 09:24 Dose: 40 mg Sodium Chloride (Flush Normal Saline 10 Ml) 10 ml IV BID [facility] Last Admin: 04/25/23 21:14 Dose: 10 ml Sodium Chloride (Sodium Chloride 0.9% 10ml Inj) 10 ml IV UD PRN PRN Reason: Diluant Sotalol HCl (Sotalol Hcl 80 Mg Tab) 80 mg PO BID 6AM 6PM [facility] Last Admin: 04/25/23 17:06 Dose: 80 mg Thiamine HCl (Thiamine Hcl 100 Mg Tablet) 100 mg PO DAILY [facility] Last Admin: 04/25/23 09:24 Dose: 100 mg Microbiology Results 04/21/23 16:21 Blood - Blood Aerobic Blood Culture - Preliminary No growth in 24 hours. 04/21/23 16:21 Blood - Blood Anaerobic Blood Culture - Final 04/21/23 13:40 Blood - Blood Aerobic Blood Culture - Preliminary No growth in 24 hours. 04/21/23 13:40 Blood - Blood Anaerobic Blood Culture - Preliminary No growth in 24 hours. Assessment/ Plan: Nephrology No dyspnea No chest pain No acute events overnight Limited IH/ ROS due to AMS Vitals, medications, blood work and imaging reviewed in the chart. NAD. NCAT. MMM. Neck supple. Normal respiratory effort. RRR. Abd ND. No C/C. LE Edema none. No rash. Somnolent. Minimal speech. 1. NORMAL LEFT VENTRICULAR EJECTION FRACTION 50-55% 2. ATRIAL FIBRILLATION 3. MILD MITRAL REGURGITATION 4. MILD TRICUSPID REGURGITATION Stage I ARMAND improving CKD II with Proteinuria -No NSAIDs Hyponatremia -Encourage nutrition Hypomagnesemia -Replete as ordered -Continue SloMag BID Hypotension -Continue Midodrine PreDM -No sugar diet Anemia in chronic illness -Monitor H&H -PRBC prn
[2023-04-26] MEDS ORDERED: NA CHLORIDE 0.9% 500 ML IV ONE (00:01)
[2023-04-26] MEDS: chlordiazePOXIDE HCl 5 MG CAP PO SCH ×3 (00:09→12:15)
[2023-04-26] MEDS: HYDROCODONE/APAP 5/325 MG TAB PO PRN (03:42)
[2023-04-26 05:17] LABS: Magnesium 1.7 mg/dL (1.6-2.4); Potassium 4.8 mEq/L (3.5-5.1)
[2023-04-26] MEDS: SOTALOL HCL 80 MG TAB PO SCH (05:21)
[2023-04-26] MEDS: POTASS/SODIUM PHOSPHATE 1 PKT POWD.PACK PO SCH ×3 (06:21→10:03)
[2023-04-26] MEDS ORDERED: MAGNESIUM SULFATE 1 gm IVPB 1 GM/100 ML BAG IV ONE (07:00)
[2023-04-26] MEDS: INSULIN -REGULAR HUMAN 50 UNIT/0.5 ML ML SQ SCH ×3 (07:30→16:10)
[2023-04-26] MEDS: MIDODRINE HCL 5 MG TABLET PO SCH ×3 (07:40→16:18)
[2023-04-26] MEDS: FOLIC ACID 1 MG in NA CHLORIDE 0.9% 50 ML IV SCH (10:00)
[2023-04-26] MEDS: PANTOPRAZOLE 40 MG INJ IVP SCH (10:01)
[2023-04-26] MEDS: SOD FERRIC GLUC COMPLX/SUCROSE 125 MG in NA CHLORIDE 0.9% 100 ML IV SCH (10:02)
[2023-04-26] MEDS: DOCUSATE NA 100 MG CAP PO SCH (10:03)
[2023-04-26] MEDS: ASPIRIN 81 MG CHEWABLE TABLET PO SCH (10:03)
[2023-04-26] MEDS: MAGNESIUM CHLORIDE 64 MG TAB PO SCH (10:03)
[2023-04-26] MEDS: NICOTINE 21 MG/PAT TD SCH (10:03)
[2023-04-26] MEDS: APIXABAN 5 MG TABLET PO SCH (10:03)
[2023-04-26] MEDS: THIAMINE HCL 100 MG TABLET PO SCH (10:04)
[2023-04-26 16:25] VITALS: BP 100/61; TEMP 98.3
[2023-04-26] MEDS ORDERED: chlordiazePOXIDE HCl 5 MG CAP PO SCH (21:00)
== END 2023-04-26 18:47 | disposition home or self-care (01) | DRG 309 ==
LOC: ER 12:59 → ERHOLD 17:38 → 3RD-ICU 19:49 → 4TH 04-24 18:50
PROVIDERS: ADMIT Hospitalist; ATTEND Hospitalist
PROC: 02HV33Z Insertion of Infusion Device into Superior Vena Cava, Percutaneous Approach (ICD-10-PCS; principal; 2023-04-22)
DX: I48.92 Unspecified atrial flutter (principal); D61.818 Other pancytopenia; G93.40 Encephalopathy, unspecified; N17.9 Acute kidney failure, unspecified; F05 Delirium due to known physiological condition; I13.0 Hypertensive heart and chronic kidney disease with heart failure and stage 1 through stage 4 chronic kidney disease, or unspecified chronic kidney disease; E87.1 Hypo-osmolality and hyponatremia; I50.32 Chronic diastolic (congestive) heart failure; N18.2 Chronic kidney disease, stage 2 (mild); E11.22 Type 2 diabetes mellitus with diabetic chronic kidney disease; D63.1 Anemia in chronic kidney disease; I48.91 Unspecified atrial fibrillation; E87.5 Hyperkalemia; E83.42 Hypomagnesemia; K21.9 Gastro-esophageal reflux disease without esophagitis; F10.10 Alcohol abuse, uncomplicated; F32.A Depression, unspecified; E88.09 Other disorders of plasma-protein metabolism, not elsewhere classified; D53.9 Nutritional anemia, unspecified; F41.9 Anxiety disorder, unspecified; I95.9 Hypotension, unspecified; I08.1 Rheumatic disorders of both mitral and tricuspid valves; D72.819 Decreased white blood cell count, unspecified; I25.10 Atherosclerotic heart disease of native coronary artery without angina pectoris; F17.210 Nicotine dependence, cigarettes, uncomplicated; I25.2 Old myocardial infarction; Z79.84 Long term (current) use of oral hypoglycemic drugs; Z79.82 Long term (current) use of aspirin; Z90.79 Acquired absence of other genital organ(s); Z85.46 Personal history of malignant neoplasm of prostate; Z96.642 Presence of left artificial hip joint; Z79.899 Other long term (current) drug therapy; Z28.310 Unvaccinated for COVID-19
CPT/HCPCS: 36415; 71045; 72170; 76700; 80048; 80053; 80061; 81001; 81003; 82043; 82140; 82435; 82533; 82550; 82570; 82607; 82728; 82746; 82805; 82947; 83036; 83540; 83605; 83735; 83880; 83930; 83935; 84100; 84132; 84156; 84300; 84439; 84443; 84466; 84484; 84550; 85025; 85044; 85610; 85730; 86850; 86900; 86901; 87040; 93005; 93306; 93880; 96372; 97110; 97161; 97530; 99291; 99292; C9113; J0282; J0612; J1650; J1815; J1940; J2001; J2405; J2916; J3475; J7030; J7040; J7060; J7120; P9047

== ENCOUNTER 2023-05-04 02:16 | Inpatient (IN) | payer OTHER ==
[2023-05-04 03:06] LABS: Absolute Lymphocytes (CBC) 1.9 K/uL (0.7-4.9); Hematocrit 31.7 % (39.6-49.0); MCV 105.4 fL (80-100); MPV 10.9 fL (7.6-11.3); Platelets 203 thou/uL (152-406); RBC Red Blood Cell Count 3.01 M/uL (4.33-5.43)
[2023-05-04 03:19] LABS: Potassium 4.5 mEq/L (3.5-5.1); Troponin High Sensitivity 11.7 pg/mL (<58.9)
[2023-05-04 03:27] LABS: SARS-CoV-2 Antigen Rapid Res Positive (Negative)
[2023-05-04] MEDS ORDERED: MAGNESIUM SULFATE 1 gm IVPB 1 GM/100 ML BAG IV ONE ×2 (03:39→04:22)
[2023-05-04 03:56] LABS: Albumin 2.5 g/dL (3.4-5.0); Bilirubin Direct 0.6 mg/dL (0-0.2); Bilirubin Indirect, Calculated 0.2 mg/dL (0.2-0.8); Bilirubin Total 0.8 mg/dL (0.2-1.0); Protein, Total 6.5 g/dL (6.4-8.2)
--- NOTE | 2023-05-04 04:03 | ER ---
Nurse's Notes [facility] Name: Jordon Smith Age: 63 yrs Sex: Male : 1960 Arrival Date: 05/04/2023 Time: 02:16 Bed 14 Private MD: Diagnosis: Muscle weakness (generalized);SARS-associated coronavirus as the cause of diseases classified elsewhere;Altered mental status, unspecified;Anemia, unspecified;Hypomagnesemia Presentation: 05/04 02:21 Chief complaint: EMS states: multiple falls X1 week. fall at 0100 hitting back of head lg3 on nightstand. family called EMS. PT refused service at that time. EMS called back out later for AMS and increased weakness. family states new AFIB diagnosis treated with eliquis. Coronavirus screen: At this time, unable to obtain information related to travel outside the [place] Ebola Screen: No symptoms or risks identified at this time. Initial Sepsis Screen: Does the patient meet any 2 criteria? No. Patient's initial sepsis screen is negative. Does the patient have a suspected source of infection? No. Patient's initial sepsis screen is negative. Risk Assessment: Do you want to hurt yourself or someone else? Patient reports no desire to harm self or others. Onset of symptoms is unknown. 02:21 Method Of Arrival: EMS: [facility] lg3 02:21 Acuity: ADRY 3 lg3 Triage Assessment: 02:24 General: Appears in no apparent distress. comfortable, Behavior is calm, cooperative, lg3 flat. Pain: Denies pain. EENT: No deficits noted. No signs and/or symptoms were reported regarding the EENT system. Neuro: Level of Consciousness is awake, obeys commands, confused, Oriented to person, place, Speech is slurred. Cardiovascular: No deficits noted. Denies chest pain, shortness of breath, Capillary refill < 3 seconds Clubbing of nail beds is absent JVD is absent Patient's skin is warm and dry. Respiratory: No deficits noted. Airway is patent Respiratory effort is even, unlabored, Respiratory pattern is regular, symmetrical. GI: No deficits noted. No signs and/or symptoms were reported involving the gastrointestinal system. Abdomen is round non-distended. : No deficits noted. No signs and/or symptoms were reported regarding the genitourinary system. Derm: Skin is intact, Skin is dry, Skin is pale, Skin temperature is warm. Musculoskeletal: Reports generalized weakness. Historical: - Allergies: 02:24 Unable to obtain; lg3 - Home Meds: 02:24 midodrine 5 mg oral tablet [Active]; chlordiazepoxide HCl 10 mg Oral capsule [Active]; lg3 Eliquis 5 mg oral tablet [Active]; metformin 750 mg Oral Tb24 twice a day [Active]; losartan 100 mg Oral tab 1 tab once daily [Active]; multivitamin Oral [Active]; pantoprazole 40 mg Oral grps 1 packet once daily [Active]; - PMHx: 02:24 cardiac arrest; depressive disorder; Diabetes - NIDDM; Hypertension; Seizure; AFIB; lg3 02:45 ETOH; kl - PSHx: 02:24 Left hip; prostatectomy; Tonsillectomy; lg3 - Immunization history:: Adult Immunizations unknown. - Social history:: Smoking status: Patient reports the use of cigarette tobacco products, smokes one-half pack cigarettes per day, Patient/guardian denies using alcohol, but has a distant history of alcohol abuse. Screenin:32 [facility] ED Fall Risk Assessment (Adult) History of falling in the last 3 months, lg3 including since admission Yes- fall prone (multiple falls) (3 pts) Confusion or Disorientation Yes (5 pts) Impaired Gait Yes (1 pt) Mobility Assist Device Used Yes (1 pt) Altered Elimination Yes (1 pt) Score/Fall Risk Level 3 or more points = High Risk Oriented to surroundings, Maintained a safe environment, Educated pt \T\ family on fall prevention, incl call for assistance when getting out of bed, Assessed \T\ reinforced patient's understanding of fall precautions, Provided non-skid footwear. Abuse screen: Denies threats or abuse. Denies injuries from another. Nutritional screening: No deficits noted. Tuberculosis screening: No symptoms or risk factors identified. Assessment: 02:31 General: see triage assessment. lg3 02:36 General: person of contact-(Daughter) Kay Smith [phone] (Mother) Ximena [facility] Luis [phone]. 03:45 Reassessment: Patient appears in no apparent distress at this time. No changes from lg3 previously documented assessment. Patient and/or family updated on plan of care and expected duration. Pain level reassessed. Patient is alert, oriented x 3, equal unlabored respirations, skin warm/dry/pink. Pain: Complains of pain in left hip. Neuro: Whittaker Agitation-Sedation Scale (RASS): 0 - Alert and Calm Level of Consciousness is awake, alert, obeys commands, Oriented to person, place, situation. Respiratory: No deficits noted. Reports cough that is productive, persistent Airway is patent Respiratory effort is even, unlabored, Respiratory pattern is regular, symmetrical. Vital Signs: 02:21 BP 124 / 85; Pulse 98; Resp 19 S; Temp 98.5(O); Pulse Ox 99% on R/A; Weight 75.5 kg lg3 (M); Height 6 ft. 0 in. (R); Pain 0/10; 03:46 BP 113 / 74; Pulse 96; Resp 19 S; Pulse Ox 100% on R/A; lg3 02:21 Body Mass Index 22.57 (75.50 kg, 182.88 cm) lg3 02:21 Pain Scale: Adult lg3 ED Course: 02:19 Patient arrived in ED. ms3 02:20 Bony Langston DO is Attending Physician. ms3 02:21 Augustina Lala, RN is Primary Nurse. lg3 02:24 Triage completed. lg3 02:24 Arm band placed on right wrist. lg3 02:32 Patient has correct armband on for positive identification. Placed in gown. Bed in low lg3 position. Call light in reach. Side rails up X2. Client placed on continuous cardiac and pulse oximetry monitoring. NIBP monitoring applied. monitor tech on. Door closed. Noise minimized. Warm blanket given. 02:32 Patient maintains SpO2 saturation greater than 95% on room air. lg3 02:49 Basic Metabolic Panel Sent. lg3 02:49 CBC with Diff Sent. lg3 02:50 Magnesium Sent. lg3 02:50 Troponin HS Sent. lg3 02:50 Type And Screen Sent. lg3 02:50 Inserted saline lock: 20 gauge in left antecubital area, using aseptic technique. Blood oe collected. 02:55 XRAY Chest (1 view) In Process Unspecified. EDMS 03:05 CT Head C Spine In Process Unspecified. EDMS 04:01 Tay Prince MD is Hospitalizing Provider. ms3 04:06 Hip Left 2 View XRAY In Process Unspecified. EDMS 05:38 Provided Education on: fall risk, bed rest, cardiac monitoring. rv 05:38 No provider procedures requiring assistance completed. Patient admitted, IV remains in rv place. 07:00 Report received from SUPRIYA Weller. kc6 07:30 Report given to SUPRIYA Escalante in ICU. kc6 Administered Medications: 03:45 Drug: Magnesium Sulfate IVPB 1 grams Route: IVPB; Infused Over: 1 hrs; Site: left lg3 antecubital; 04:37 Follow up: Response: No adverse reaction; IV Status: Completed infusion; IV Intake: lg3 100ml 04:37 Drug: Magnesium Sulfate IVPB 1 grams Route: IVPB; Infused Over: 1 hrs; Site: left lg3 antecubital; 05:39 Follow up: IV Status: Infusion continued upon admission rv Medication: 05:38 VIS not applicable for this client. rv Intake: 04:37 IV: 100ml; Total: 100ml. lg3 Outcome: 04:02 Decision to Hospitalize by Provider. ms3 05:38 Admitted to ER Hold. Please see [facility] for further documentation. rv 05:38 Condition: unchanged 05:38 Instructed on the need for admit. 08:14 Patient left the ED. kc6 Signatures: Dispatcher [employer] EDMS Maria E Beltran, RN Onur Roth Ronaldo, RN Augustina Newby RN RN lg3 Bony Langston DO DO ms3 Ana Cruz RN RN kc6 Corrections: (The following items were deleted from the chart) 02:32 02:21 BP 124 / 85; Pulse 98bpm; Resp 19bpm; Spontaneous; Pulse Ox 99% RA; Temp 97.9F lg3 Oral; 75.5 kg Measured; Height 6 ft. 0 in. Reported; BMI: 22.5; Pain 0/10, Adult; lg3 02:55 02:49 PROBNP+C.LAB.BRZ drawn and sent. lg3 EDMS
--- NOTE | 2023-05-04 04:03 | EDPHYS ---
Physician Documentation [facility] Name: Jordon Smith Age: 63 yrs Sex: Male : 1960 Arrival Date: 05/04/2023 Time: 02:16 Bed 14 Private MD: ED Physician Bony Langston HPI: 05/04 02:36 This 63 yrs old Male presents to ER via EMS with complaints of Weakness and fall. ms3 02:36 63-year-old male with past medical history of cardiac arrest, depressive disorder, ms3 diabetes, hypertension presents via [facility] after multiple falls. EMS states they were at patient's house at 1 AM yesterday and patient refused to come to the hospital. EMS was called tonight and patient agreed for transport. EMS notes patient fell hitting his head on the nightstand landing on carpet. Patient is currently on blood thinners as he was recently diagnosed with atrial fibrillation. 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 Patient denies pain. Patient denies any alleviating or inciting factors. Patient notes his weakness began after being diagnosed with atrial fibrillation. Historical: - Allergies: 02:24 Unable to obtain; lg3 - Home Meds: 02:24 midodrine 5 mg oral tablet [Active]; chlordiazepoxide HCl 10 mg Oral capsule [Active]; lg3 Eliquis 5 mg oral tablet [Active]; metformin 750 mg Oral Tb24 twice a day [Active]; losartan 100 mg Oral tab 1 tab once daily [Active]; multivitamin Oral [Active]; pantoprazole 40 mg Oral grps 1 packet once daily [Active]; - PMHx: 02:24 cardiac arrest; depressive disorder; Diabetes - NIDDM; Hypertension; Seizure; AFIB; lg3 02:45 ETOH; kl - PSHx: 02:24 Left hip; prostatectomy; Tonsillectomy; lg3 - Immunization history:: Adult Immunizations unknown. - Social history:: Smoking status: Patient reports the use of cigarette tobacco products, smokes one-half pack cigarettes per day, Patient/guardian denies using alcohol, but has a distant history of alcohol abuse. ROS: 02:36 Neck: Negative for injury, pain, and swelling, Cardiovascular: Negative for chest pain, ms3 and palpitations. Respiratory: Negative for shortness of breath, cough, wheezing, and pleuritic chest pain, Abdomen/GI: Negative for abdominal pain, nausea, vomiting, diarrhea, and constipation. 02:36 Constitutional: Positive for generalized weakness. 02:36 All other systems are negative. Exam: 02:36 Constitutional: This is a well developed, well nourished patient who is awake, alert, ms3 and in no acute distress. Head/Face: Normocephalic, atraumatic. Neck: Trachea midline, no cervical lymphadenopathy. Supple, full range of motion without nuchal rigidity, or vertebral point tenderness. No Meningismus. Chest/axilla: Normal chest wall appearance and motion. Nontender with no deformity. Cardiovascular: Regular rate and rhythm with a normal S1 and S2. No gallops, murmurs, or rubs. Normal PMI, no JVD. No pulse deficits. Respiratory: Lungs have equal breath sounds bilaterally, clear to auscultation and percussion. No rales, rhonchi or wheezes noted. No increased work of breathing, no retractions or nasal flaring. Abdomen/GI: Soft, non-tender, with normal bowel sounds. No distension or tympany. No guarding or rebound. No evidence of tenderness throughout. 02:36 Skin: Appearance: Color: pale. 03:16 ECG was reviewed by the Attending Physician. ms3 Vital Signs: 02:21 BP 124 / 85; Pulse 98; Resp 19 S; Temp 98.5(O); Pulse Ox 99% on R/A; Weight 75.5 kg lg3 (M); Height 6 ft. 0 in. (R); Pain 0/10; 03:46 BP 113 / 74; Pulse 96; Resp 19 S; Pulse Ox 100% on R/A; lg3 02:21 Body Mass Index 22.57 (75.50 kg, 182.88 cm) lg3 02:21 Pain Scale: Adult lg3 MDM: 02:20 Patient medically screened. ms3 02:36 Differential diagnosis: closed head injury, contusion, Anemia. ms3 04:01 Data reviewed: vital signs, nurses notes, lab test result(s), radiologic studies, and ms3 as a result, I will admit patient. Consideration of Admission/Observation Patient was admitted/placed on observation. Management of patient was discussed with the following: Hospitalist: Barry Cervantes NP. I considered the following discharge prescriptions or medication management in the emergency department Medications were administered in the Emergency Department. See MAR. Historians other than the Patient: EMS: [facility]. Care significantly affected by the following chronic conditions: Diabetes, Hypertension, Congestive Heart Failure. Counseling: I had a detailed discussion with the patient and/or guardian regarding: the historical points, exam findings, and any diagnostic results supporting the discharge/admit diagnosis, lab results, radiology results, the need for further work-up and treatment in the hospital. Response to treatment: There is no appreciated change of the patient's symptoms at this time, and as a result, I will admit patient. 04:33 Independent interpretation of the following test(s) in the Emergency Department EKG: ms3 See my EKG interpretation above X-Ray: My interpretation is Left hip x-ray reviewed by me does not show fracture. 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 05/04 02:21 Order name: Basic Metabolic Panel; Complete Time: 03:59 ms3 05/04 02:21 Order name: CBC with Diff; Complete Time: 04:35 ms3 05/04 02:21 Order name: Magnesium; Complete Time: 03:59 ms3 05/04 02:21 Order name: Troponin HS; Complete Time: 03:59 ms3 05/04 02:22 Order name: Type And Screen; Complete Time: 05:08 ms3 05/04 02:47 Order name: SARS RAPID; Complete Time: 03:39 kl 05/04 02:47 Order name: Influenza Screen (a \T\ B); Complete Time: 03:39 kl 05/04 02:55 Order name: NT PRO-BNP; Complete Time: 03:59 EDMS 05/04 03:09 Order name: CBC Smear Scan; Complete Time: 04:35 EDMS 05/04 03:37 Order name: ETOH Level; Complete Time: 05:07 ms3 05/04 03:41 Order name: PT-INR; Complete Time: 04:35 ms3 05/04 03:41 Order name: AMMONIA; Complete Time: 05:07 ms3 05/04 03:47 Order name: Liver (Hepatic) Function; Complete Time: 03:59 EDMS 05/04 07:35 Order name: Glucose, Ancillary Testing EDMS 05/04 02:21 Order name: XRAY Chest (1 view) ms3 05/04 02:22 Order name: CT Head C Spine ms3 05/04 03:40 Order name: Hip Left 2 View XRAY ms3 05/04 02:21 Order name: EKG; Complete Time: 02:22 ms3 05/04 02:21 Order name: Cardiac monitoring; Complete Time: 02:49 ms3 05/04 02:21 Order name: EKG - Nurse/Tech; Complete Time: 02:49 ms3 05/04 02:21 Order name: IV Saline Lock; Complete Time: 02:49 ms3 05/04 02:21 Order name: Labs collected and sent; Complete Time: 02:49 ms3 05/04 02:21 Order name: O2 Per Protocol; Complete Time: 02:49 ms3 05/04 02:21 Order name: O2 Sat Monitoring; Complete Time: 02:49 ms3 05/04 02:22 Order name: Labs collected and sent; Complete Time: 02:49 ms3 EC:16 Rate is 99 beats/min. Rhythm is regular. QRS [place] is Normal. DE interval is normal. QRS ms3 interval is normal. Clinical impression: NSR w/ Non-specific ST/T Changes. Interpreted by me. Reviewed by me. Administered Medications: 03:45 Drug: Magnesium Sulfate IVPB 1 grams Route: IVPB; Infused Over: 1 hrs; Site: left lg3 antecubital; 04:37 Follow up: Response: No adverse reaction; IV Status: Completed infusion; IV Intake: lg3 100ml 04:37 Drug: Magnesium Sulfate IVPB 1 grams Route: IVPB; Infused Over: 1 hrs; Site: left lg3 antecubital; 05:39 Follow up: IV Status: Infusion continued upon admission rv Disposition Summary: 05/04/23 04:02 Hospitalization Ordered Hospitalization Status: Inpatient Admission ms3 Provider: Tay Prince ms3 Condition: Stable ms3 Problem: new ms3 Symptoms: are unchanged ms3 Bed/Room Type: Standard ms3 Location: Intensive Care Unit(05/04/23 06:52) cg Room Assignment: 8-(05/04/23 06:52) cg Diagnosis - Muscle weakness (generalized) ms3 - SARS-associated coronavirus as the cause of diseases classified elsewhere ms3 - Altered mental status, unspecified ms3 - Anemia, unspecified ms3 - Hypomagnesemia ms3 Forms: - Medication Reconciliation Form ms3 - SBAR form ms3 Signatures: Dispatcher [employer] EDMS Maria E Beltran, RN RN Barry Lucas, BLOCK BREAKER-C BLOCK BREAKER-Cla1 Tiffany Prater RN RN cg Augustina Lala RN RN lg3 Bony Langston DO DO ms3 Jones Negron RN rv Corrections: (The following items were deleted from the chart) 02:55 02:42 PROBNP+C.LAB.BRZ ordered. EDMS EDMS 03:44 03:42 HEPATIC FUNCTION+C.LAB.BRZ ordered. EDMS EDMS 04:25 04:02 Telemetry/MedSurg (Inpatient) ms3 cg 04:25 04:02 ms3 cg 06:52 04:25 [facility] ER HOLD cg cg 06:52 04:25 ERHOLD- cg cg
[2023-05-04 04:13] LABS: Protime INR 1.47
[2023-05-04] MEDS ORDERED: ONDANSETRON 4 MG/2 ML VIAL IV PRN (04:29)
--- NOTE | 2023-05-04 04:31 | P.HP ---
Certification for Inpatient Patient admitted to: Inpatient With expected LOS: >2 Midnights Patient will require the following post-hospital care: None Practitioner: I am a practitioner with admitting privileges, knowledge of patient current condition, hospital course, and medical plan of care. Services: Services provided to patient in accordance with Admission requirements found in Title 42 Section 412.3 of the Code of Federal Regulations Patient History Date of Service: 05/04/23 Reason for admission: Altered mental status, weakness History of Present Illness: 63-year-old male with history of atrial fibrillation on chronic anticoagulation, hypertension, history of alcohol abuse presents the emergency department chief complaint of multiple falls, altered mental status. He lives at home with his mother who has leukemia, he has had multiple falls over the course of the last 48 hours, he reports he feels very weak. He is disoriented, believes the is 2002, he is able to say his name and where he is. He was evaluated in the emergency room found to be COVID-positive, his other labs are significant for marked hypomagnesemia and macrocytic anemia. He reports he has not drank for a few months now. EtOH level is pending CT head/C-spine negative for acute findings x-ray left hip negative for acute findings chest x-ray unremarkable satting 100% on room air. Patient unable to stand or walk without assistance at this time, he is confused likely metabolic encephalopathy secondary to COVID-19. He will require hospitalization. Allergies No Known Allergies Allergy (Unverified 08/30/22 15:42) Home Medications: Aspirin 1 tab PO DAILY 08/30/22 Escitalopram [Lexapro*] 1 tab PO DAILY 08/30/22 Losartan Potassium 1 tab PO DAILY 08/30/22 Metformin HCl [Metformin HCl ER] 1 tab PO BID 08/30/22 Apixaban [Eliquis] 5 mg PO BID #60 tab 04/25/23 Docusate [Colace Cap*] 100 mg PO BID #30 cap 04/25/23 Magnesium Chloride [Slow-Mag*] 64 mg PO BID #60 tab 04/25/23 Midodrine HCl [Proamatine*] 5 mg PO TIDWM #90 tab 04/25/23 Pantoprazole [Protonix Tab*] 1 tab PO BID #60 tab 04/25/23 Thiamine HCl [Vitamin B-1*] 100 mg PO DAILY #30 tab 04/25/23 chlordiazePOXIDE HCl [Chlordiazepoxide HCl] 10 mg PO TID #70 cap 04/25/23 Sotalol HCl [Betapace*] 40 mg PO BID 6AM 6PM #60 tab 04/26/23 - Past Medical/Surgical History Diabetic: Yes -: HTN -: Prostate Cancer -: NIDDM2 -: HTN -: ETOH -: A-fib -: Left Shoulder torn rotator cuff -: Left Hip Replacement -: Prostatectomy Psychosocial/ Personal History: Patient lives at home with his mother who has leukemia - Family History Mother -: Lung disease, Cancer Notes: leukemia Father -: Heart disease Notes: afib. alcoholic Brother -: Cancer Notes: pancreatic cancer - Social History Smoking Status: Current every day smoker Counseled patient to stop smoking for: less than 10 minutes Alcohol use: Yes CD- Drugs: No Caffeine use: Yes Place of Residence: Home Review of Systems 10-point ROS is otherwise unremarkable General: Weakness, Malaise Respiratory: Cough Physical Examination - Physical Exam General: Alert, In no apparent distress, Oriented x2 HEENT: Atraumatic, PERRLA, Mucous membr. moist/pink, EOMI, Sclerae nonicteric Neck: Supple, 2+ carotid pulse no bruit, No LAD, Without JVD or thyroid a bnormality Respiratory: Clear to auscultation bilaterally, Normal air movement Cardiovascular: Regular rate/rhythm, Normal S1 S2 Gastrointestinal: Normal bowel sounds, No tenderness Musculoskeletal: No tenderness Integumentary: No rashes Neurological: Normal gait, Normal tone, Normal affect, Abnormal speech (Speech slowed, mildly slurred) - Studies Laboratory Data (last 24 hrs) 05/04/23 03:41: Total Bilirubin Cancelled, AST Cancelled, ALT Cancelled, Alkaline Phosphatase Cancelled 05/04/23 02:42: WBC 5.70, Hgb 10.7 L, Hct 31.7 L, Plt Count 203 05/04/23 02:42: Sodium 141, Potassium 4.5, BUN 20 H, Creatinine 1.14, Glucose 110 H, Magnesium 1.0 L*, Total Bilirubin 0.8, AST 36, ALT 28, Alkaline Phosphatase 233 H Microbiology Data (last 24 hrs): 05/04/23 03:01 Nasopharnyx Influenza Type A Antigen Screen - Final 05/04/23 03:01 Nasopharnyx Influenza Type B Antigen Screen - Final Assessment and Plan - Plan Assessment: Metabolic encephalopathy likely secondary to COVID-19 viral illness Multiple falls, debility Hypomagnesemia Atrial fibrillation on chronic anticoagulation Hypertension History of alcohol abuse Macrocytic anemia Plan: Metabolic encephalopathy likely secondary to COVID-19 viral illness Multiple falls, debility Currently satting well on room air chest x-ray is clear. Continue supportive care. PT consult, lives at home alone with his mother who has leukemia, if he does not have rapid improvement in his symptoms he may benefit with rehab/placement or home PT. Await PT eval. Hypomagnesemia Replaced in ED, protocol in place for K, mag, Phos Atrial fibrillation on chronic anticoagulation Continue sotalol, Eliquis, rate controlled. Hypertension History of hypertension, also possibly on midodrine? Med rec, monitor blood pressure. History of alcohol abuse Reports he has not drank in a few months, EtOH level pending, LFT stable. It is possible that his AMS may be related to alcohol withdrawal although that is unlikely. If he begins to exhibit signs of alcohol withdrawal consider benzodiazepine. Macrocytic anemia Monitor CBC DVT PPX: Continue Eliquis Code status: Full code Discharge Plan: Home Plan to discharge in: Greater than 2 days - Advance Directives Does patient have a Living Will: Yes Does patient have a Durable POA for Healthcare: Yes - Code Status/Comfort Care Code Status Assessed: Yes (Full code) Critical Care: No Time Spent Managing Pts Care (In Minutes): 55
[2023-05-04 04:34] LABS: Blood Morphology Comment NOTED (NOT SEEN); Macrocytosis 1+; Platelet Estimate ADEQ; White Blood Cell Scan OK (OK)
[2023-05-04] MEDS ORDERED: SOTALOL HCL 80 MG TAB ONE (05:00)
[2023-05-04] MEDS: SOTALOL HCL 80 MG TAB PO SCH ×3 (05:40→18:15)
[2023-05-04] MEDS: INSULIN -REGULAR HUMAN 50 UNIT/0.5 ML ML SQ SCH ×4 (07:27→21:00)
[2023-05-04] MEDS: APIXABAN 5 MG TABLET PO SCH ×2 (10:30→21:26)
[2023-05-04] MEDS: THIAMINE HCL 100 MG TABLET PO SCH (10:30)
--- NOTE | 2023-05-04 10:47 | RAD REPORT ---
EXAM DESCRIPTION: CT Head and Cervical Spine Without Intravenous Contrast CLINICAL HISTORY: TRAUMA TECHNIQUE: Axial computed tomography images of the head/brain and cervical spine without intravenous contrast. Sagittal and coronal reformatted images were created and reviewed. This CT exam was pe rformed using one or more of the following dose reduction techniques: automated exposure control, a djustment of the mA and/or kV according to patient size, and/or use of iterative reconstruction techn ique. COMPARISON: No relevant prior studies available. FINDINGS: Brain: Mild cerebral atrophy. Right bolivar radiata CSF density focus compatible with r emote lacunar infarct. No hemorrhage. No significant white matter disease. Ventricles: Unremarkable. No ventriculomegaly. Skull: No acute fracture. Sinuses: Mild right anterior ethmoid, frontal and maxillary sinus mucosal thickening. Mastoid air cells: Unremarkable as visualized. No mastoid effusion. Vertebrae: Unremarkable. No acute fracture. Normal alignment. Discs/spinal canal/neural foramina: Mild to moderate multilevel degenerative changes most pronounce d at C5-C6 and C6-C7. Fusion of the left C2-C3 facet articulation. No critical canal stenosis. Soft tissues: Unremarkable. Vasculature: There is atherosclerotic disease of the internal carotid arteries bilaterally. IMPRESSION: 1. No acute intracranial or extra-axial abnormality. 2. No acute cervical spine injury. 3. Other findings as above. Electronically signed by: Neida Ashford MD 05/04/2023 3:22 AM CDT Due to temporary technical issues with the PACS/Fluency reporting system, reports are being signed by the in house radiologist without review as a courtesy to ensure prompt reporting. The interpreting r adiologist is fully responsible for the content of the report.
[2023-05-04] MEDS ORDERED: Magnesium Sulfate 2gm IVPB 2 G/50 ML BAG IV ONE (11:10)
[2023-05-04] MEDS ORDERED: ALBUMIN HUMAN 25% 100 ML IV ONE (11:10)
--- NOTE | 2023-05-04 11:19 | RAD REPORT ---
EXAM DESCRIPTION: XR Chest, 1 View CLINICAL HISTORY: Weakness TECHNIQUE: Frontal view of the chest. COMPARISON: XR Chest dated 04/22/2023 FINDINGS: Lungs: Unremarkable. No consolidation. Pleural space: Unremarkable. No pneumothorax. Heart: Unremarkable. No cardiomegaly. Mediastinum: Unremarkable. Bones/joints: Unremarkable. IMPRESSION: No acute disease. Electronically signed by: Neida Ashford MD 05/04/2023 3:03 AM CDT Due to temporary technical issues with the PACS/Fluency reporting system, reports are being signed by the in house radiologist without review as a courtesy to ensure prompt reporting. The interpreting r adiologist is fully responsible for the content of the report.
--- NOTE | 2023-05-04 11:25 | RAD REPORT ---
EXAM DESCRIPTION: XR Left Hip With Pelvis When Performed, 3 Views CLINICAL HISTORY: PAIN TECHNIQUE: Three views of the left hip with pelvis when performed. COMPARISON: No relevant prior studies available. FINDINGS: Bones/joints: Left total hip arthroplasty. No focal complication. Moderate to severe degenerative changes at the right hip articulation. No acute fracture. No dislocation. Soft tissues: Unremarkable. IMPRESSION: No acute injury. Electronically signed by: Neida Ashford MD 05/04/2023 4:24 AM CDT Due to temporary technical issues with the PACS/Fluency reporting system, reports are being signed by the in house radiologist without review as a courtesy to ensure prompt reporting. The interpreting r adiologist is fully responsible for the content of the report.
[2023-05-05 04:55] LABS: Absolute Lymphocytes (CBC) 1.2 K/uL (0.7-4.9); Lymphocytes % 30.5 % (15.3-44.8); MCV 104.5 fL (80-100); MPV 10.6 fL (7.6-11.3); Platelets 185 thou/uL (152-406); RBC Red Blood Cell Count 2.77 M/uL (4.33-5.43)
--- NOTE | 2023-05-05 05:00 | P.PN ---
Date of Service: 05/05/23 Subjective Patient with no new changes. Spoke with family regarding patient's current clinical status. MRI of the brain pending. Patient is following commands but he is very lethargic. Physical Examination - Vitals reviewed - Physical Exam General: Alert, In no apparent distress, Oriented x2 Respiratory: Clear to auscultation bilaterally, Normal air movement Cardiovascular: Regular rate/rhythm, Normal S1 S2 Gastrointestinal: Normal bowel sounds, No tenderness Musculoskeletal: No tenderness Integumentary: No rashes Neurological: Speech slowed, mildly slurred; Moves all extremities Assessment and Plan - Assessment Assessment: Metabolic encephalopathy likely secondary to COVID-19 viral illness Multiple falls, debility Hypomagnesemia Atrial fibrillation on chronic anticoagulation Hypertension History of alcohol abuse Macrocytic anemia - Plan Plan: 1. Monitor electrolytes 2. Physical therapy 3. Speech therapy 4. MRI of the brain 5. Continue with medication for rate control 6. Gi DVT from this
[2023-05-05 05:14] LABS: Potassium 4.3 mEq/L (3.5-5.1)
[2023-05-05 05:15] LABS: Albumin 2.3 g/dL (3.4-5.0); Bilirubin Total 0.8 mg/dL (0.2-1.0); Magnesium 1.5 mg/dL (1.6-2.4); Phosphorus 3.9 mg/dL (2.5-4.9); Protein, Total 5.9 g/dL (6.4-8.2); Thyroid Stimulating Hormone 1.38 uIU/mL (0.358-3.740)
[2023-05-05] MEDS: SOTALOL HCL 80 MG TAB PO SCH ×2 (05:28→17:15)
[2023-05-05] MEDS ORDERED: Magnesium Sulfate 2gm IVPB 2 G/50 ML BAG IV ONE (07:00)
[2023-05-05] MEDS: INSULIN -REGULAR HUMAN 50 UNIT/0.5 ML ML SQ SCH ×4 (07:30→21:00)
[2023-05-05] MEDS: THIAMINE HCL 100 MG TABLET PO SCH (09:28)
[2023-05-05] MEDS: APIXABAN 5 MG TABLET PO SCH ×2 (09:28→21:52)
--- NOTE | 2023-05-05 14:57 | EKG ---
Test Date: 2023-05-04 Test Time: 02:44:48 Public Relations Assistant: PAOLA MEASUREMENT RESULTS: Intervals: Rate: 99 KS: 138 QRSD: 102 QT: 388 QTc: 497 [place]: P: 78 KS: 138 QRS: 21 T: 49 INTERPRETIVE STATEMENTS: Normal sinus rhythm Low voltage QRS Prolonged QT Abnormal ECG Compared to ECG 05/04/2023 02:30:22 No significant changes Electronically Signed On 05-05-23 14:55:09 CDT by Oliverio Riley
--- NOTE | 2023-05-05 14:57 | EKG ---
Test Date: 2023-05-04 Test Time: 02:30:22 Director Hospice Operations: PAOLA MEASUREMENT RESULTS: Intervals: Rate: 97 ND: 140 QRSD: 102 QT: 382 QTc: 485 [place]: P: 76 ND: 140 QRS: 44 T: 37 INTERPRETIVE STATEMENTS: Normal sinus rhythm Low voltage QRS Prolonged QT Abnormal ECG Compared to ECG 04/21/2023 13:16:15 Low QRS voltage now present Prolonged QT interval now present Right bundle-branch block no longer present Electronically Signed On 05-05-23 14:55:13 CDT by Oliverio Riley
--- NOTE | 2023-05-05 16:16 | RAD REPORT ---
EXAM DESCRIPTION: MRI - Brain Wo Cont - 05/05/2023 3:15 pm CLINICAL HISTORY: Alteration consciousness/confusion COMPARISON: Head CT May 04, 2023 TECHNIQUE: Axial, sagittal, and coronal magnetic resonance images of the brain were obtained. FINDINGS: Abnormal signal right basal ganglia having the appearance of an old lacunar infarction. Diffusion-weighted/ADC mapping does not reveal evidence of acute infarction. The ventricles are normal caliber. An extra-axial fluid collection is not noted. Mild to moderate cerebral atrophy Fluid within the sinuses/mastoids is not seen IMPRESSION: No acute intracranial abnormality noted
[2023-05-05] MEDS ORDERED: WATER FOR INJ,STERILE 10 ML IM PRN (22:23)
[2023-05-05] MEDS ORDERED: ZIPRASIDONE MESYLA 20 MG/VIAL IM ONE (22:24)
[2023-05-05] MEDS ORDERED: DEXMEDETOMIDINE HCL 200 MCG in NA CHLORIDE 0.9% 98 ML IV SCH (23:00)
[2023-05-06] MEDS ORDERED: METOPROLOL TARTRATE 5 MG/5 ML INJ IV STA (01:20)
[2023-05-06] MEDS ORDERED: METOPROLOL TARTRATE 5 MG/5 ML INJ IV ONE (01:27)
[2023-05-06] MEDS: SOTALOL HCL 80 MG TAB PO SCH ×2 (06:00→17:42)
[2023-05-06] MEDS ORDERED: PIPER TAZO 3.375 GM in NA CHLORIDE 0.9% 100 ML IV SCH (06:19)
[2023-05-06] MEDS ORDERED: LEVALBUTEROL 1.25 MG/3 ML NEB NEB PRN (06:20)
[2023-05-06] MEDS ORDERED: IPRATROPIUM BROM 0.5MG/2.5ML NEB PRN (06:20)
[2023-05-06] MEDS ORDERED: ALBUTEROL 2.5 MG/3 ML NEB SOL NEB PRN (06:29)
--- NOTE | 2023-05-06 06:35 | CON ---
Reason For Consultation: Consultation called because of altered mental status and diffuse weakness. History Of Present Illness: Mr. Smith is a 63-year-old patient with multiple medical problems incl uding atrial fibrillation on chronic anticoagulation, chronic alcohol abuse, hypertension, who comes to [facility] with 48 hours worth of diffuse weakness, confusion, and multiple falls. At [facility], he is positive for COVID, had significant hypomagnesemia, macrocytic anemia, but r eports not drinking alcohol for few months. His alcohol level was normal and COVID was positive. Hi s head CT scan and brain MRI are negative for any acute ischemic or hemorrhagic change. The patient has not received treatment for COVID positivity with his encephalopathy, which is a likely etiology f or encephalopathy along with alcohol abuse. Past Medical History: As noted above in addition to prostate cancer. Past Surgical History: Left shoulder rotator cuff surgery, left hip surgery, prostatectomy. Social History: The patient apparently drinks alcohol; in the past, more heavily, now very recent. Family History: Mother has leukemia. Father has myocardial infarction and is an alcoholic, has atri al fibrillation. Brother with prostate cancer. Allergies: NO KNOWN DRUG ALLERGIES. Home Medications: Aspirin 81 mg daily, Lexapro daily, losartan daily, Eliquis 5 mg twice daily, Cola ce 100 mg twice daily, Slow-Mag 64 mg twice daily, midodrine 5 mg 3 times daily, Protonix 40 mg daily , thiamine 100 mg daily. He started on Librium 10 mg 3 times daily and sotalol 40 mg twice daily. Review of Systems: The patient is in ICU. Does report mild disorientation. Denies fevers or chills. Has mild nausea, no vomiting. No rash. No genitourinary or gastrointestinal complaints and no other positives and di ffuse weakness and poor balance. Physical Examination: Vital Signs: Blood pressure 155/58, pulse up to 108, respiratory rate 24, temperature 97.3, oxygen s aturation 98. General: Mr. Smith is sitting on side of bed, about to use the bedside commode. HEENT: He appears normocephalic, atraumatic. Sclerae anicteric. Oropharynx is pink, moist. Neck: Supple. Chest: Clear. Heart: Regular. Extremities: Show no significant edema or cyanosis. Neurologic: He is alert and oriented to person and place. He was unable to recall 3 words after 3 m inutes, had difficulty doing serial 7 subtraction. Cranial nerves show no focal deficits. Motor exa m showed no focal weakness, appears to be diffusely weak upper and lower extremities. Gait not asses sed. He will have a gait belt and the physical therapists. Laboratory Studies: White blood cell count is 4, hemoglobin 9.6, platelets 185. INR 1.47. His basi c metabolic panel remarkable for mildly elevated glucose of 260. Alkaline phosphate is elevated at 1 97. Serum protein low at 5.9, albumin low at 2.3. TSH normal at 1.38 and free T4 normal at 1.23. M agnesium was initially very low at 1.0, now after replacement 1.7 yesterday, and today 1.5. Potassiu m is normal at 4.3. Serum alcohol level less than 10 and he is positive for COVID-19. Assessment: Mr. Smith is a 63-year-old patient with metabolic and toxic encephalopathy. He has hy pomagnesemia, which is being replaced and he is positive for COVID. Plan: 1.He may require ongoing magnesium replacement. 2.He should receive Paxlovid. 3.Continue with management of his comorbidities including Eliquis for stroke risk reduction, 5 mg tw ice daily. Continue with alcohol withdrawal prophylaxis including thiamine and as needed benzodiazep ine. EEG is not available and when the patient is able to be discharged, an EEG may be done outpatie nt. Given the normal brain MRI and EEG, he is expected to make a full recovery. LB/MODL Voice ID: [id number] Report ID: [id number]
[2023-05-06] MEDS: PIPER TAZO 3.375 GM in NA CHLORIDE 0.9% 100 ML IV SCH ×3 (06:41→21:37)
[2023-05-06] MEDS: METHYLPREDNISOLONE 40 MG INJ IV SCH ×4 (06:42→23:59)
[2023-05-06 06:44] LABS: Absolute Lymphocytes (CBC) 1.4 K/uL (0.7-4.9); Hematocrit 30.3 % (39.6-49.0); Lymphocytes % 21.9 % (15.3-44.8); MCV 103.3 fL (80-100); MPV 10.6 fL (7.6-11.3); Platelets 176 thou/uL (152-406); RBC Red Blood Cell Count 2.93 M/uL (4.33-5.43)
[2023-05-06 07:04] LABS: Albumin 2.2 g/dL (3.4-5.0); Bilirubin Total 0.7 mg/dL (0.2-1.0); Magnesium 1.3 mg/dL (1.6-2.4); Phosphorus 3.3 mg/dL (2.5-4.9); Potassium 4.5 mEq/L (3.5-5.1)
[2023-05-06] MEDS: INSULIN -REGULAR HUMAN 50 UNIT/0.5 ML ML SQ SCH ×4 (07:30→21:00)
[2023-05-06] MEDS: APIXABAN 5 MG TABLET PO SCH ×2 (09:00→21:38)
[2023-05-06] MEDS: THIAMINE HCL 100 MG TABLET PO SCH (09:00)
[2023-05-06 11:00] LABS: Arterial Blood Carboxyhemoglob 0.8 % (0-1.5); Blood Gas Oxyhemoglobin 94.2 % (94-97)
--- NOTE | 2023-05-06 12:11 | RAD REPORT ---
EXAM DESCRIPTION: RAD - Chest Single View - 05/06/2023 6:38 am CLINICAL HISTORY: The patient is 63 years old and is Male; dyspnea TECHNIQUE: Single view of the chest. COMPARISON: May 04, 2023. FINDINGS: Lungs: No pulmonary vascular congestion or consolidation. Pleural space: Unremarkable. No pneumothorax. Heart: Unremarkable. No cardiomegaly. Mediastinum: Unremarkable. Bones/joints: No acute fracture visualized. Upper abdomen: No free air in the visualized upper abdomen. IMPRESSION: No acute cardiopulmonary process identified. Electronically signed by: Rose Shetty MD 05/06/2023 6:51 AM CDT Due to temporary technical issues with the PACS/Fluency reporting system, reports are being signed by the in house radiologist without review as a courtesy to ensure prompt reporting. The interpreting r adiologist is fully responsible for the content of the report.
[2023-05-06 12:43] LABS: Arterial Blood Carboxyhemoglob 0.6 % (0-1.5); Blood O2 Saturation 88.5 % (92-98.5)
[2023-05-06] MEDS ORDERED: NA CHLORIDE 0.9% 1,000 ML ONE (13:39)
[2023-05-06] MEDS ORDERED: RSI MEDICATION KIT IV ONE (13:39)
[2023-05-06] MEDS ORDERED: NOREPINEPHRINE BITARTRATE/D5W 4 MG/250 ML BAG IV ONE (13:57)
[2023-05-06 14:42] LABS: Arterial Blood Carboxyhemoglob 0.8 % (0-1.5); Blood Gas Oxyhemoglobin 88.5 % (94-97); Blood O2 Saturation 89.6 % (92-98.5)
--- NOTE | 2023-05-06 14:55 | RAD REPORT ---
EXAM DESCRIPTION: RAD - Chest Single View - 05/06/2023 2:42 pm CLINICAL HISTORY: S/P ETT and OG PLACEMENT Chest pain. COMPARISON: Chest Single View dated 05/06/2023; Chest Single View dated 05/04/2023; Chest Single View dated 04/22/2023; Chest Single View dated 04/21/2023 FINDINGS: Portable technique limits examination quality. ET tube is located with its tip at the level of the clavicles. Enteric tube is coiled in the stomach.
--- NOTE | 2023-05-06 15:29 | RAD REPORT ---
EXAM DESCRIPTION: CT - Head Brain Wo Cont - 05/06/2023 3:21 pm CLINICAL HISTORY: AMS Headache, drowsiness COMPARISON: HEAD BRAIN W O CONTRAST dated 03/11/2009 TECHNIQUE: All CT scans are performed using dose optimization technique as appropriate and may inclu de automated exposure control or mA/KV adjustment according to patient size. FINDINGS: No intracranial hemorrhage, hydrocephalus or extra-axial fluid collection.Small area of gl iosis is seen right periventricular white matter. Mild generalized brain atrophy.No areas of brain ed neal or evidence of midline shift. The paranasal sinuses and mastoids are clear. The calvarium is intact. IMPRESSION: No acute intracranial abnormality.
[2023-05-06] MEDS: THIAMINE 200 MG/2 ML INJ IVP SCH ×2 (17:18→21:38)
[2023-05-06] MEDS ORDERED: propofoL 1,000 MG/100 ML VIAL IV SCH (18:00)
[2023-05-06] MEDS ORDERED: SUCCINYLCHOLINE 20 MG/ML (10 ML) IV ONE (18:23)
[2023-05-06] MEDS ORDERED: ETOMIDATE 20 MG/10 ML VIAL IV ONE (18:23)
[2023-05-06] MEDS ORDERED: FENTANYL CITR 100 MCG/2 ML IV PRN (23:49)
[2023-05-07 05:19] LABS: Absolute Lymphocytes (CBC) 0.9 K/uL (0.7-4.9); Hematocrit 29.2 % (39.6-49.0); Lymphocytes % 15.1 % (15.3-44.8); MCV 104.6 fL (80-100); MPV 10.6 fL (7.6-11.3); Platelets 181 thou/uL (152-406); RBC Red Blood Cell Count 2.79 M/uL (4.33-5.43)
[2023-05-07 05:30] LABS: Albumin 2.1 g/dL (3.4-5.0); Bilirubin Total 0.7 mg/dL (0.2-1.0); Magnesium 1.4 mg/dL (1.6-2.4); Phosphorus 3.3 mg/dL (2.5-4.9); Potassium 4.4 mEq/L (3.5-5.1); Protein, Total 5.8 g/dL (6.4-8.2)
[2023-05-07] MEDS: SOTALOL HCL 80 MG TAB PO SCH ×2 (06:00→18:00)
[2023-05-07] MEDS: PIPER TAZO 3.375 GM in NA CHLORIDE 0.9% 100 ML IV SCH (06:38)
[2023-05-07] MEDS: METHYLPREDNISOLONE 40 MG INJ IV SCH ×3 (06:38→21:13)
[2023-05-07] MEDS ORDERED: Magnesium Sulfate 2gm IVPB 2 G/50 ML BAG IV ONE (07:06)
[2023-05-07] MEDS: INSULIN -REGULAR HUMAN 50 UNIT/0.5 ML ML SQ SCH ×4 (07:30→21:44)
[2023-05-07] MEDS ORDERED: SCOPOLAMINE HYDROBROMIDE PATCH TD ONE (07:30)
--- NOTE | 2023-05-07 07:31 | P.PN ---
Subjective Date of Service: 05/06/23 Patient's clinical condition has worsened. Patient has been very lethargic overnight. CO2 has increased. Even after BiPAP patient CO2 has not been improving significantly. We will go ahead and proceed with intubation. Once his hypercapnia has improved we should be able to extubate him in the morning. Review of Systems is unable to be obtained Physical Examination - Vital Signs Temperature: 97.6 F Blood Pressure: 99/64 Pulse: 81 Respirations: 21 Pulse Ox (%): 97 - Physical Exam General: Other (Intubated and sedated) HEENT: Atraumatic Respiratory: Diminished, Expiratory wheezes Cardiovascular: Regular rate/rhythm, No murmurs Gastrointestinal: Normal bowel sounds, Soft and benign, Non-distended Musculoskeletal: No clubbing, No swelling Neurological: Other (Patient is very lethargic and not really following commands well) Assessment & Plan - Problems (Diagnosis) (1) Altered mental status Current Visit: Yes Status: Acute (2) Hypercapnic respiratory failure Current Visit: Yes Status: Acute (3) History of alcohol abuse Current Visit: Yes Status: Acute (4) Acute encephalopathy Current Visit: Yes Status: Acute (5) History of COVID-19 Current Visit: Yes Status: Acute (6) Atrial fibrillation with RVR Current Visit: No Status: Acute - Plan Plan: 1. Continue with mechanical ventilation 2. Nebs and steroids 3. Repeat ABGs 4. Repeat chest x-ray with no infiltrates 5. Continue with sedation 6. Monitor labs 7. Neuro work-up pending; MRI of the brain was negative. We will monitor electrolytes 8. GI DVT prophylaxis Discharge Plan: Home Plan to discharge in: Greater than 2 days - Advance Directives Does patient have a Living Will: Yes Does patient have a Durable POA for Healthcare: Yes - Code Status/Comfort Care Code Status Assessed: Yes Code Status: Full Code Critical Care: Yes Time Spent Managing PTS Care (In Minutes): 35
--- NOTE | 2023-05-07 07:35 | P.PN ---
Date of Service: 05/07/23 Subjective Patient self extubated this morning. Weaning off of O2. Continue with nebs and steroids. We will do speech therapy and physical therapy evaluation as well. Review of Systems is unable to be obtained Physical Examination - Vital Signs Reviewed - Physical Exam General: Awake and alert and following commands HEENT: Atraumatic Respiratory: Diminished, Expiratory wheezes Cardiovascular: Regular rate/rhythm, No murmurs Gastrointestinal: Normal bowel sounds, Soft and benign, Non-distended Musculoskeletal: No clubbing, No swelling Neurological: Patient is awake and alert and following commands and moving all his extremities Assessment & Plan - Problems (Diagnosis) (1) Altered mental status Current Visit: Yes Status: Acute (2) Hypercapnic respiratory failure Current Visit: Yes Status: Acute (3) History of alcohol abuse Current Visit: Yes Status: Acute (4) Acute encephalopathy Current Visit: Yes Status: Acute (5) History of COVID-19 Current Visit: Yes Status: Acute (6) Atrial fibrillation with RVR Current Visit: No Status: Acute - Plan Plan: 1. Patient self extubated. We will continue to monitor. A lot of secretions and will use nebs and scopolamine 2. Nebs and steroids 3. Repeat ABGs 4. Repeat chest x-ray with no infiltrates 5. Swallow eval bedside. Physical therapy evaluation 6. Monitor labs 7. Neuro work-up pending; MRI of the brain was negative. We will monitor electrolytes 8. GI DVT prophylaxis Discharge Plan: Home Plan to discharge in: Greater than 2 days - Advance Directives Does patient have a Living Will: Yes Does patient have a Durable POA for Healthcare: Yes - Code Status/Comfort Care Code Status Assessed: Yes Code Status: Full Code Critical Care: Yes Time Spent Managing PTS Care (In Minutes): 35
--- NOTE | 2023-05-07 07:57 | P.CNS ---
Date of Consult: 05/07/23 Reason for Consult: Unresponsive respiratory failure Chief Complaint: Altered mental status, weakness History of Present Illness: Patient is 63 years of age multiple medical problems including including continuous alcohol abuse multiple falls altered mental status came to this hospital disoriented was admitted to the ICU was also diagnosed with COVID- positive in the morning patient was unresponsive agitated and he was given some Geodon Allergies No Known Allergies Allergy (Unverified 08/30/22 15:42) Home Medications: Aspirin 1 tab PO DAILY 08/30/22 Escitalopram [Lexapro*] 1 tab PO DAILY 08/30/22 Losartan Potassium 1 tab PO DAILY 08/30/22 Metformin HCl [Metformin HCl ER] 1 tab PO BID 08/30/22 Apixaban [Eliquis] 5 mg PO BID #60 tab 04/25/23 Docusate [Colace Cap*] 100 mg PO BID #30 cap 04/25/23 Magnesium Chloride [Slow-Mag*] 64 mg PO BID #60 tab 04/25/23 Midodrine HCl [Proamatine*] 5 mg PO TIDWM #90 tab 04/25/23 Pantoprazole [Protonix Tab*] 1 tab PO BID #60 tab 04/25/23 Thiamine HCl [Vitamin B-1*] 100 mg PO DAILY #30 tab 04/25/23 chlordiazePOXIDE HCl [Chlordiazepoxide HCl] 10 mg PO TID #70 cap 04/25/23 Sotalol HCl [Betapace*] 40 mg PO BID 6AM 6PM #60 tab 04/26/23 - Past Medical/Surgical History Diabetic: Yes -: HTN -: Prostate Cancer -: NIDDM2 -: HTN -: ETOH -: A-fib -: Left Shoulder torn rotator cuff -: Left Hip Replacement -: Prostatectomy Psychosocial/ Personal History: Patient lives at home with his mother who has leukemia - Family History Mother Medical History: Lung disease, Cancer Notes: leukemia Father Medical History: Heart disease Notes: afib. alcoholic Brother Medical History: Cancer Notes: pancreatic cancer - Social History Smoking Status: Current every day smoker Alcohol use: Yes CD- Drugs: No Caffeine use: Yes Place of Residence: Home Review of Systems is unable to be obtained Physical Examination Temp Pulse Resp BP Pulse Ox 97.6 F 81 21 H 99/64 97 05/07/23 07:31 05/07/23 07:31 05/07/23 07:31 05/07/23 07:31 05/07/23 07:31 General: Unresponsive Neck: Supple Respiratory: Clear to auscultation bilaterally Cardiovascular: Regular rate/rhythm, Normal S1 S2, Edema Gastrointestinal: Normal bowel sounds, Soft and benign, Non-distended Musculoskeletal: No clubbing, No swelling - Problems (1) Acute encephalopathy Current Visit: Yes Status: Acute Plan: Patient is 63 years of age with alcohol abuse recently tested positive for COVID admitted with encephalopathy he has abnormal liver function test including increasing alkaline phosphatase macrocytic anemia I suspect is from his alcohol abuse continue to monitor changed to IV thiamine tested positive for COVID patient is an active smoker also has hypoxic hypercapnic respiratory failure continue with bronchodilators (2) Hypercapnic respiratory failure Current Visit: Yes Status: Acute Plan: Patient has hypoxic hypercapnic respiratory failure continue with bronchodilators he is an underlying smoker Qualifiers: Chronicity: acute on chronic Qualified Code(s): J96.22 - Acute and chronic respiratory failure with hypercapnia
[2023-05-07] MEDS: IPRATROPIUM BROM 0.5MG/2.5ML NEB SCH ×3 (08:00→19:30)
[2023-05-07] MEDS ORDERED: ALBUTEROL 2.5 MG/3 ML NEB SOL NEB SCH (08:00)
--- NOTE | 2023-05-07 08:00 | P.PN ---
Subjective Date of Service: 05/07/23 Chief Complaint: Altered mental status, weakness Subjective: Improving (Patient is apparently intubated yesterday he self extubated he is more alert responsive cooperative) Review of Systems General: Weakness Respiratory: Shortness of Breath Physical Examination - Vital Signs Temperature: 97.6 F Blood Pressure: 99/64 Pulse: 81 Respirations: 21 Pulse Ox (%): 97 - Physical Exam General: Alert, Cooperative Neck: Supple Respiratory: Clear to auscultation bilaterally Cardiovascular: No edema, Regular rate/rhythm, Normal S1 S2 Gastrointestinal: Normal bowel sounds Assessment And Plan - Current Problems (Diagnosis) (1) Acute encephalopathy Current Visit: Yes Status: Acute Plan: Patient is doing much better he self extubated yesterday hypoxic hypercapnic respiratory failure no acute changes on MRI or CT scan patient's chest x-ray is clear blood pressure is slightly low we will advance diet patient is an active smoker reduce the dose of Solu-Medrol continue with bronchodilators DC Zosyn no evidence of any infection
[2023-05-07] MEDS ORDERED: ALBUTEROL 2.5 MG/3 ML NEB SOL NEB PRN (08:03)
[2023-05-07] MEDS: THIAMINE 200 MG/2 ML INJ IVP SCH ×2 (09:10→21:13)
[2023-05-07] MEDS: APIXABAN 5 MG TABLET PO SCH ×2 (09:11→21:13)
--- NOTE | 2023-05-07 13:24 | EKG ---
Test Date: 2023-05-06 Test Time: 02:04:45 Tank Stave Assembler: AVTAR MEASUREMENT RESULTS: Intervals: Rate: 118 [place]: 148 QRSD: 104 QT: 338 QTc: 473 [place]: P: 58 [place]: 148 QRS: -53 T: 67 INTERPRETIVE STATEMENTS: Sinus tachycardia Left axis deviation Low voltage QRS Incomplete right bundle branch block Possible Inferior infarct, age undetermined Abnormal ECG Compared to ECG 05/04/2023 02:44:48 Left-axis deviation now present Incomplete right bundle-branch block now present Myocardial infarct finding now present Sinus rhythm no longer present Prolonged QT interval no longer present Electronically Signed On 05-07-23 13:20:20 CDT by Oliverio Riley
[2023-05-08] MEDS: TRAMADOL HCL 50 MG TAB PO PRN ×2 (00:12→20:57)
[2023-05-08] MEDS: IPRATROPIUM BROM 0.5MG/2.5ML NEB SCH ×4 (01:55→20:00)
[2023-05-08] MEDS: SOTALOL HCL 80 MG TAB PO SCH ×2 (05:49→17:47)
--- NOTE | 2023-05-08 06:38 | P.PN ---
Date of Service: 05/08/23 Subjective Patient continues to remain lethargic. Will use BiPAP at night. Review of Systems is unable to be obtained Physical Examination - Vital Signs Reviewed - Physical Exam General: Awake and alert and following commands HEENT: Atraumatic Respiratory: Diminished, Expiratory wheezes Cardiovascular: Regular rate/rhythm, No murmurs Gastrointestinal: Normal bowel sounds, Soft and benign, Non-distended Musculoskeletal: No clubbing, No swelling Neurological: Patient is awake and alert and following commands and moving all his extremities Assessment & Plan - Problems (Diagnosis) (1) Altered mental status Current Visit: Yes Status: Acute (2) Hypercapnic respiratory failure Current Visit: Yes Status: Acute (3) History of alcohol abuse Current Visit: Yes Status: Acute (4) Acute encephalopathy Current Visit: Yes Status: Acute (5) History of COVID-19 Current Visit: Yes Status: Acute (6) Atrial fibrillation with RVR Current Visit: No Status: Acute - Plan Plan: 1. Patient self extubated yesterday. We will continue to monitor. A lot of secretions and will use nebs and scopolamine 2. Nebs and steroids 3. PT/speech therapy 4. Repeat chest x-ray with no infiltrates 5. OOB and ambulate and to chair 6. Monitor labs 7. Neuro work-up pending; MRI of the brain was negative. We will monitor electrolytes 8. GI DVT prophylaxis Discharge Plan: Home Plan to discharge in: Greater than 2 days - Advance Directives Does patient have a Living Will: Yes Does patient have a Durable POA for Healthcare: Yes - Code Status/Comfort Care Code Status Assessed: Yes Code Status: Full Code Critical Care: Yes Time Spent Managing PTS Care (In Minutes): 35
[2023-05-08] MEDS: INSULIN -REGULAR HUMAN 50 UNIT/0.5 ML ML SQ SCH ×4 (07:30→20:46)
[2023-05-08] MEDS: ALBUTEROL 2.5 MG/3 ML NEB SOL NEB PRN (08:55)
[2023-05-08] MEDS: APIXABAN 5 MG TABLET PO SCH ×2 (09:33→20:52)
[2023-05-08] MEDS: THIAMINE 200 MG/2 ML INJ IVP SCH ×2 (09:33→20:53)
[2023-05-08] MEDS: METHYLPREDNISOLONE 40 MG INJ IV SCH ×2 (09:33→20:53)
[2023-05-08 10:23] LABS: Absolute Lymphocytes (CBC) 1.1 K/uL (0.7-4.9); Hematocrit 28.8 % (39.6-49.0); Lymphocytes % 20.2 % (15.3-44.8); MCV 104.5 fL (80-100); MPV 10.4 fL (7.6-11.3); Platelets 155 thou/uL (152-406); RBC Red Blood Cell Count 2.76 M/uL (4.33-5.43)
[2023-05-08 10:36] LABS: Albumin 2.3 g/dL (3.4-5.0); Bilirubin Total 0.6 mg/dL (0.2-1.0); Potassium 4.2 mEq/L (3.5-5.1); Protein, Total 6.1 g/dL (6.4-8.2)
--- NOTE | 2023-05-08 13:29 | EKG ---
Test Date: 2023-05-06 Test Time: 02:12:20 Slicing Machine Tender: LB MEASUREMENT RESULTS: Intervals: Rate: 122 [place]: 138 QRSD: 100 QT: 338 QTc: 481 [place]: P: 67 [place]: 138 QRS: -38 T: 53 INTERPRETIVE STATEMENTS: Sinus tachycardia Left axis deviation Low voltage QRS Incomplete right bundle branch block Inferior infarct, age undetermined T wave abnormality, consider anterior ischemia Abnormal ECG Compared to ECG 05/06/2023 02:04:45 T-wave abnormality now present Possible ischemia now present Myocardial infarct finding still present Electronically Signed On 05-08-23 13:27:27 CDT by Oliverio Riley
[2023-05-09] MEDS: IPRATROPIUM BROM 0.5MG/2.5ML NEB SCH ×4 (02:00→19:55)
[2023-05-09 05:48] LABS: Potassium 4.8 mEq/L (3.5-5.1)
[2023-05-09] MEDS: SOTALOL HCL 80 MG TAB PO SCH ×2 (05:50→16:37)
[2023-05-09] MEDS: INSULIN -REGULAR HUMAN 50 UNIT/0.5 ML ML SQ SCH ×4 (07:30→20:30)
[2023-05-09] MEDS: ALBUTEROL 2.5 MG/3 ML NEB SOL NEB PRN ×2 (08:10→14:10)
[2023-05-09] MEDS: METHYLPREDNISOLONE 40 MG INJ IV SCH ×2 (08:35→20:29)
[2023-05-09] MEDS: THIAMINE 200 MG/2 ML INJ IVP SCH ×2 (08:35→20:30)
[2023-05-09] MEDS: APIXABAN 5 MG TABLET PO SCH ×2 (08:35→20:29)
[2023-05-09] MEDS: TRAMADOL HCL 50 MG TAB PO PRN (21:07)
[2023-05-10] MEDS: IPRATROPIUM BROM 0.5MG/2.5ML NEB SCH ×4 (01:35→20:00)
[2023-05-10 04:41] LABS: Absolute Lymphocytes (CBC) 0.8 K/uL (0.7-4.9); Hematocrit 28.7 % (39.6-49.0); Lymphocytes % 18.1 % (15.3-44.8); MCV 104.4 fL (80-100); MPV 10.6 fL (7.6-11.3); Platelets 157 thou/uL (152-406); RBC Red Blood Cell Count 2.75 M/uL (4.33-5.43)
[2023-05-10 04:58] LABS: Magnesium 1.9 mg/dL (1.6-2.4); Potassium 4.9 mEq/L (3.5-5.1)
[2023-05-10] MEDS: SOTALOL HCL 80 MG TAB PO SCH ×2 (05:06→17:55)
[2023-05-10 06:03] LABS: Blood Gas Oxyhemoglobin 94.4 % (94-97); Blood O2 Saturation 96.2 % (92-98.5)
[2023-05-10] MEDS: INSULIN -REGULAR HUMAN 50 UNIT/0.5 ML ML SQ SCH ×4 (07:30→20:47)
[2023-05-10] MEDS: THIAMINE 200 MG/2 ML INJ IVP SCH (08:30)
[2023-05-10] MEDS: METHYLPREDNISOLONE 40 MG INJ IV SCH (08:30)
[2023-05-10] MEDS: APIXABAN 5 MG TABLET PO SCH ×2 (08:31→20:21)
--- NOTE | 2023-05-10 10:25 | P.PN ---
Subjective Date of Service: 05/10/23 Chief Complaint: Altered mental status, weakness Subjective: Improving (Patient is improving hemodynamically stable he is still disoriented complains) Review of Systems General: Weakness Respiratory: Shortness of Breath Physical Examination - Vital Signs Temperature: 97.9 F Blood Pressure: 143/79 Pulse: 64 Respirations: 18 Pulse Ox (%): 99 - Physical Exam General: Alert, Oriented x1 Respiratory: Clear to auscultation bilaterally Cardiovascular: No edema, Regular rate/rhythm, Normal S1 S2 Assessment And Plan - Current Problems (Diagnosis) (1) Acute encephalopathy Current Visit: Yes Status: Acute Plan: Encephalopathy is improving he is more responsive alert but still disoriented chemistries reviewed vital signs all stable see Flores catheter transfer to the floor (2) SARS-CoV-2 positive Current Visit: Yes Status: Acute Plan: Patient's COVID test is positive no evidence of any acute infection or any lung damage prednisone to 10 mg twice a day
[2023-05-10] MEDS: predniSONE 10 MG TAB PO SCH (20:21)
[2023-05-10] MEDS: THIAMINE HCL 100 MG TABLET PO SCH (20:21)
[2023-05-10] MEDS: TRAMADOL HCL 50 MG TAB PO PRN (21:07)
[2023-05-11] MEDS: IPRATROPIUM BROM 0.5MG/2.5ML NEB SCH ×4 (01:40→20:00)
[2023-05-11 04:49] LABS: Absolute Lymphocytes (CBC) 1.2 K/uL (0.7-4.9); Lymphocytes % 20.3 % (15.3-44.8); MCV 103.7 fL (80-100); MPV 10.7 fL (7.6-11.3); Platelets 144 thou/uL (152-406); RBC Red Blood Cell Count 2.99 M/uL (4.33-5.43)
[2023-05-11 05:05] LABS: Magnesium 1.8 mg/dL (1.6-2.4); Phosphorus 3.3 mg/dL (2.5-4.9); Potassium 4.3 mEq/L (3.5-5.1)
[2023-05-11] MEDS: SOTALOL HCL 80 MG TAB PO SCH ×2 (05:08→18:11)
[2023-05-11] MEDS: INSULIN -REGULAR HUMAN 50 UNIT/0.5 ML ML SQ SCH ×4 (07:30→20:51)
[2023-05-11] MEDS: APIXABAN 5 MG TABLET PO SCH ×2 (08:32→21:06)
[2023-05-11] MEDS: THIAMINE HCL 100 MG TABLET PO SCH ×2 (08:32→21:06)
[2023-05-11] MEDS: predniSONE 10 MG TAB PO SCH ×2 (08:32→21:06)
[2023-05-12] MEDS ORDERED: LORazepam 2 MG/ML VIAL IV ONE (00:14)
[2023-05-12] MEDS: IPRATROPIUM BROM 0.5MG/2.5ML NEB SCH ×4 (02:10→20:40)
--- NOTE | 2023-05-12 02:45 | P.PN ---
Date of Service: 05/09/23 Subjective Patient is doing well clinically. Patient starting to work more with nursing and physical therapy. Updated patient's and she wants patient to go to a snf facility. Case management consulted. Physical Examination - Vital Signs Reviewed - Physical Exam General: Awake and alert and following commands Respiratory: Diminished but otherwise clear Cardiovascular: Regular rate/rhythm, No murmurs Gastrointestinal: Normal bowel sounds, Soft and benign, Non-distended Musculoskeletal: No clubbing, Minimal swelling Neurological: Patient is awake and alert and following commands and moving all his extremities; starting to SINGH except LUE(rotator cuff injury) Assessment & Plan - Problems (Diagnosis) (1) Altered mental status Current Visit: Yes Status: Acute (2) Hypercapnic respiratory failure Current Visit: Yes Status: Acute (3) History of alcohol abuse Current Visit: Yes Status: Acute (4) Acute encephalopathy (? Wernicke-Korsakoff) Current Visit: Yes Status: Acute (5) History of COVID-19 Current Visit: Yes Status: Acute (6) Atrial fibrillation with RVR Current Visit: No Status: Acute (7) Generalized weakness Current Visit: No Status: Acute - Plan Plan: 1. Patient self-extubated 05/07. We will continue to monitor. A lot of secretions and will use nebs and scopolamine 2. Continue with nebs and steroids 3. PT/OT/speech therapy evaluation 4. Repeat chest x-ray as needed 5. OOB and ambulate and to chair 6. Monitor labs 7. Neuro work-up pending; MRI of the brain was negative. We will monitor electrolytes 8. GI DVT prophylaxis Discharge Plan: Home Plan to discharge in: Greater than 2 days - Advance Directives Does patient have a Living Will: Yes Does patient have a Durable POA for Healthcare: Yes - Code Status/Comfort Care Code Status Assessed: Yes Code Status: Full Code
--- NOTE | 2023-05-12 02:51 | P.PN ---
Date of Service: 05/10/23 Subjective Patient was able to get out of bed and walk in place with nurses today. Patient's contractures are improved. We will continue to work with patient aggressively. We will get occupational therapy along with physical therapy and speech therapy. We will work on patient going to [facility]p facility per , Viji's request. Patient will also need to continue with BiPAP at night for his sleep apnea. Patient tends to become hypercapnic if he is not wearing his BiPAP at night. Physical Examination - Vital Signs Reviewed - Physical Exam General: Awake and alert and following commands HEENT: Atraumatic Respiratory: Diminished but clear otherwise Cardiovascular: Regular rate/rhythm, No murmurs Gastrointestinal: Normal bowel sounds, Soft and benign, Non-distended Musculoskeletal: No clubbing, No swelling Neurological: Patient is awake and alert and following commands and moving all his extremities Assessment & Plan - Problems (Diagnosis) (1) Altered mental status Current Visit: Yes Status: Acute (2) Hypercapnic respiratory failure Current Visit: Yes Status: Acute (3) History of alcohol abuse Current Visit: Yes Status: Acute (4) Acute encephalopathy(Questionable Wernicke's Korsakoff encephalopathy) Current Visit: Yes Status: Acute (5) History of COVID-19 Current Visit: Yes Status: Acute (6) Atrial fibrillation with RVR Current Visit: No Status: Acute (7) Obstructive sleep apnea Current Visit: No Status: Acute (8) Generalized weakness with left upper extremity rotator cuff injury Current Visit: No Status: Acute - Plan Plan: 1. Patient doing well with BiPAP at night. More awake and alert. Actually participated With therapy by nurses and got out of bed and walked in place. 2. Continue with nebs and steroids 3. PT/OT/speech therapy 4. Continue with medication for atrial fibrillation; anticoagulation 5. OOB and ambulate and to chair 6. Monitor labs 7. Neuro work-up pending; MRI of the brain was negative. We will monitor electrolytes 8. BIPAP at night 9. GI DVT prophylaxis Discharge Plan: Home Plan to discharge in: Greater than 2 days - Advance Directives Does patient have a Living Will: Yes Does patient have a Durable POA for Healthcare: Yes - Code Status/Comfort Care Code Status Assessed: Yes Code Status: Full Code
--- NOTE | 2023-05-12 02:54 | P.PN ---
Date of Service: 05/11/23 Subjective Patient got out of bed and work with physical therapy for about 10 minutes. Continue with working on placement to a care home facility. Patient was able to get out of bed and walk in place with nurses today. Patient's contractures are improved. We will continue to work with patient aggressively. We will get occupational therapy along with physical therapy and speech therapy. We will work on patient going to care home facility per , Viji's request. Patient will also need to continue with BiPAP at night for his sleep apnea. Patient tends to become hypercapnic if he is not wearing his BiPAP at night. Physical Examination - Vital Signs Reviewed - Physical Exam General: Awake and alert and following commands Respiratory: Diminished but clear otherwise Cardiovascular: Regular rate/rhythm, No murmurs Gastrointestinal: Normal bowel sounds, Soft and benign, Non-distended Musculoskeletal: No clubbing, No swelling Neurological: Patient is awake and alert and following commands and moving all his extremities; LUE weak (rotator cuff injury) Assessment & Plan - Problems (Diagnosis) (1) Altered mental status Current Visit: Yes Status: Acute (2) Hypercapnic respiratory failure Current Visit: Yes Status: Acute (3) History of alcohol abuse Current Visit: Yes Status: Acute (4) Acute encephalopathy(Questionable Wernicke's Korsakoff encephalopathy) Current Visit: Yes Status: Acute (5) History of COVID-19 Current Visit: Yes Status: Acute (6) Atrial fibrillation with RVR Current Visit: No Status: Acute (7) Obstructive sleep apnea Current Visit: No Status: Acute (8) Generalized weakness with left upper extremity rotator cuff injury Current Visit: No Status: Acute - Plan Plan: 1. Patient doing well with BiPAP at night. Participating with PT-walker 10ft; 2. Continue with nebs and steroids 3. PT/OT/speech therapy appreciated 4. Continue with medication for atrial fibrillation; anticoagulation 5. OOB and ambulate and to chair 6. Monitor labs 7. Neuro work-up pending; MRI of the brain was negative. We will monitor electrolytes 8. BIPAP at night 9. GI DVT prophylaxis Discharge Plan: Home Plan to discharge in: Greater than 2 days - Advance Directives Does patient have a Living Will: Yes Does patient have a Durable POA for Healthcare: Yes - Code Status/Comfort Care Code Status Assessed: Yes Code Status: Full Code
[2023-05-12] MEDS: SOTALOL HCL 80 MG TAB PO SCH ×2 (06:40→17:15)
[2023-05-12 06:46] LABS: Absolute Lymphocytes (CBC) 1.4 K/uL (0.7-4.9); Hematocrit 33.2 % (39.6-49.0); Lymphocytes % 19.2 % (15.3-44.8); MCV 103.8 fL (80-100); MPV 11.4 fL (7.6-11.3); Platelets 149 thou/uL (152-406)
[2023-05-12 07:01] LABS: Albumin 2.5 g/dL (3.4-5.0); Bilirubin Total 0.7 mg/dL (0.2-1.0); Magnesium 1.7 mg/dL (1.6-2.4); Potassium 3.9 mEq/L (3.5-5.1); Protein, Total 6.4 g/dL (6.4-8.2)
[2023-05-12] MEDS: INSULIN -REGULAR HUMAN 50 UNIT/0.5 ML ML SQ SCH ×4 (07:30→20:46)
[2023-05-12] MEDS: APIXABAN 5 MG TABLET PO SCH ×2 (08:21→20:47)
[2023-05-12] MEDS: THIAMINE HCL 100 MG TABLET PO SCH ×2 (08:21→20:47)
[2023-05-12] MEDS: predniSONE 10 MG TAB PO SCH ×2 (08:21→20:47)
--- NOTE | 2023-05-12 09:35 | P.PN ---
Subjective Date of Service: 05/12/23 Chief Complaint: Altered mental status, weakness Per RN, no acute events overnight. He is alert and oriented x2 to person and place. He is able to tell me his name and that he is in a hospital in [place]. When asked the date, he states that it is 2025. He denies any pain or discomfort this morning. Review of Systems is unable to be obtained Physical Examination - Vital Signs Temperature: 97.2 F Blood Pressure: 175/69 Pulse: 85 Respirations: 21 Pulse Ox (%): 99 - Physical Exam General: Alert, In no apparent distress, Oriented x2 HEENT: Atraumatic, Mucous membr. moist/pink, Sclerae nonicteric Neck: JVD not distended Respiratory: Clear to auscultation bilaterally, Normal air movement Cardiovascular: No edema, Regular rate/rhythm, Normal S1 S2, No gallops, No rubs, No murmurs Gastrointestinal: Normal bowel sounds, Soft and benign, Non-distended, No tenderness, No rebound, No guarding Musculoskeletal: No clubbing Integumentary: No rashes Neurological: Normal affect, Other (slightly confused) Assessment And Plan - Plan # Acute Toxic Metabolic Encephalopathy likely secondary to COVID-19 Infection - Evaluation thus far: - Labs = Na+ 139, Ca2+ 9.2, CO2 32, Glucose 163, Ammonia <15, BUN 19, Vitamin B12 >2000, TSH 1.38 - ABG = pH 7.37, PCO2 44.9, PO2 88.3 - Ethanol level = <10 - CT head/cervical spine (05/04) = "1. No acute intracranial or extra-axial abnormality. 2. No acute cervical spine injury." - MRI brain (05/05) = "No acute intracranial abnormality noted." - CT head (05/06) = "No acute intracranial abnormality." - Management plan: - Mental status is fluctuating - Last reported alcohol use was several months - unlikely to be in alcohol withdrawal syndrome or delirium tremens - Pulmonology consulted regarding COVID-19 - recommendations appreciated - Continue prednisone - Neurology consulted and he was evaluated by Dr. Martinez - recommendations appreciated - Recommended thiamine and PRN benzodiazepines # Acute Hypercapnic Respiratory Failure - likely secondary to Ziprasidone s/p Intubation - resolved - ABG = pH 7.06, PCO2 98.8, PO2 85.8 - S/P intubation and subsequent selfextubation - Consulted Pulmonary Medicine - recommendations appreciated - Consulted Respiratory Therapy - Supplemental oxygen to maintain SpO2 > 92% - Encouraged incentive spirometry # Elevated LFTs - possibly secondary to Tube Feeds - Nutrition consulted - Monitor LFTs # Deconditioning with Multiple Falls - Consulted PT - recommended SNF - Appreciate CM assistance # History of Prostate Cancer # Right-Sided Pulmonary Nodules - Pulmonary nodules noted on CT from August 2022 - Ordered repeat today # Chronic Atrial Fibrillation - Continue home sotalol, apixaban # Macrocytic Anemia - Likely due to ethanol use. Monitor Hgb. - Follow-up with PCP Hilario Peres M.D.
--- NOTE | 2023-05-12 11:16 | RAD REPORT ---
EXAM DESCRIPTION: CT - Thorax W/ Con CLINICAL HISTORY: Chest pain follow-up pulmonary nodules COMPARISON: Chest For Pe Angio dated 08/30/2022 FINDINGS: There are multiple small pulmonary nodules seen in the right lower lobe. These have not si gnificantly enlarged or changed in configuration relative to 08/30/2022 study. The lungs are otherwis e emphysematous. Trace left pleural effusion. No pneumothorax. No axillary, mediastinal or hilar adenopathy. Old left posterior rib fractures. Cholelithiasis. All CT scans are performed using dose optimization technique as appropriate and may include automated exposure control or mA/KV adjustment according to patient size. IMPRESSION: Small nodules in the right lower lobe posteriorly show no appreciable change since arlette rative study. Cholelithiasis. COPD.
[2023-05-12] MEDS ORDERED: HYDRALAZINE HCL 20 MG/ML VIAL IV ONE (12:41)
[2023-05-12] MEDS: TRAMADOL HCL 50 MG TAB PO PRN (17:14)
[2023-05-12] MEDS ORDERED: MAGNESIUM SULFATE 1 gm IVPB 1 GM/100 ML BAG IV ONE (20:00)
[2023-05-13] MEDS: IPRATROPIUM BROM 0.5MG/2.5ML NEB SCH ×4 (02:00→20:30)
[2023-05-13 05:11] LABS: Albumin 2.4 g/dL (3.4-5.0); Bilirubin Total 0.7 mg/dL (0.2-1.0); Magnesium 1.9 mg/dL (1.6-2.4); Potassium 4.2 mEq/L (3.5-5.1); Protein, Total 6.1 g/dL (6.4-8.2)
[2023-05-13] MEDS: SOTALOL HCL 80 MG TAB PO SCH ×2 (05:54→17:59)
[2023-05-13] MEDS: INSULIN -REGULAR HUMAN 50 UNIT/0.5 ML ML SQ SCH ×4 (07:30→20:48)
[2023-05-13] MEDS: THIAMINE HCL 100 MG TABLET PO SCH ×2 (08:16→20:48)
[2023-05-13] MEDS: APIXABAN 5 MG TABLET PO SCH ×2 (08:16→20:48)
[2023-05-13] MEDS: predniSONE 10 MG TAB PO SCH ×2 (08:16→20:48)
--- NOTE | 2023-05-13 18:58 | P.PN ---
Subjective Date of Service: 05/13/23 Chief Complaint: Altered mental status, weakness Per RN, no acute events overnight. He is alert and oriented x2 to person and place. When asked the year, he states that the year is 1923. He denies any pain or discomfort this morning. Review of Systems 10-point ROS is otherwise unremarkable Neurological: Confusion (mild) Physical Examination - Vital Signs Temperature: 98.1 F Blood Pressure: 117/58 Pulse: 91 Respirations: 23 Pulse Ox (%): 100 Assessment And Plan - Plan - Physical Exam General: Alert, In no apparent distress, Oriented x2 HEENT: Atraumatic, Mucous membr. moist/pink, Sclerae nonicteric Neck: JVD not distended Respiratory: Clear to auscultation bilaterally, Normal air movement Cardiovascular: No edema, Regular rate/rhythm, No murmurs Gastrointestinal: Normal bowel sounds, Soft, Non-distended, No tenderness Musculoskeletal: No clubbing Integumentary: No rashes Neurological: Normal affect, Other (slightly confused) # Acute Toxic Metabolic Encephalopathy likely secondary to COVID-19 Infection - Evaluation thus far: - Labs = Na+ 139, Ca2+ 9.2, CO2 32, Glucose 163, Ammonia <15, BUN 19, Vitamin B12 >2000, TSH 1.38 - ABG = pH 7.37, PCO2 44.9, PO2 88.3 - Ethanol level = <10 - CT head/cervical spine (05/04) = "1. No acute intracranial or extra-axial abnormality. 2. No acute cervical spine injury." - MRI brain (05/05) = "No acute intracranial abnormality noted." - CT head (05/06) = "No acute intracranial abnormality." - Management plan: - Mental status is fluctuating - Last reported alcohol use was several months - unlikely to be in alcohol withdrawal syndrome or delirium tremens - Pulmonology consulted regarding COVID-19 - recommendations appreciated - Continue prednisone - Neurology consulted and he was evaluated by Dr. Martinez - recommendations appreciated - Recommended thiamine and PRN benzodiazepines # Acute Hypercapnic Respiratory Failure - likely secondary to Ziprasidone s/p In tubation - resolved - ABG = pH 7.06, PCO2 98.8, PO2 85.8 - S/P intubation and subsequent selfextubation - Consulted Pulmonary Medicine - recommendations appreciated - Consulted Respiratory Therapy - Supplemental oxygen to maintain SpO2 > 92% - Encouraged incentive spirometry # Elevated LFTs - possibly secondary to Alcohol Liver Disease - Ordered RUQ ultrasound - Monitor LFTs # Deconditioning with Multiple Falls - Consulted PT - recommended SNF - Appreciate CM assistance # History of Prostate Cancer # Right-Sided Pulmonary Nodules - Pulmonary nodules noted on CT from August 2022 - CT chest = "small nodules in the right lower lobe posteriorly show no appreciable change since comparative study. Cholelithiasis. 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 Monitor Hgb. - Follow-up with PCP Hilario Peres M.D.
[2023-05-14] MEDS: IPRATROPIUM BROM 0.5MG/2.5ML NEB SCH ×4 (01:50→20:40)
[2023-05-14 04:49] LABS: Albumin 2.3 g/dL (3.4-5.0); Bilirubin Total 0.7 mg/dL (0.2-1.0); Potassium 4.3 mEq/L (3.5-5.1); Protein, Total 5.9 g/dL (6.4-8.2)
[2023-05-14] MEDS: SOTALOL HCL 80 MG TAB PO SCH ×2 (05:38→17:30)
--- NOTE | 2023-05-14 07:38 | RAD REPORT ---
EXAM DESCRIPTION: US - Abdomen Exam Limited - 05/14/2023 1:48 am CLINICAL HISTORY: Abdominal pain./elevated liver enzymes COMPARISON: April 24, 2023 FINDINGS: Increased hepatic echotexture. Lesion is not seen. Hepatopetal flow. Several gallstones. Small amount of sludge . Gallbladder is mildly contracted with a mildly thickened wall. Common bile duct was not well seen b ut probably normal caliber. Spleen 16 centimeters IMPRESSION: Increased hepatic echotexture consistent with either fatty infiltration or inflammation. Cholelithiasis. Mildly thickened wall may be secondary to incomplete distention, hypoalbuminemia or p robably less likely cholecystitis and should be correlated clinically
[2023-05-14] MEDS: predniSONE 10 MG TAB PO SCH ×2 (08:47→19:48)
[2023-05-14] MEDS: THIAMINE HCL 100 MG TABLET PO SCH ×2 (08:47→19:49)
[2023-05-14] MEDS: APIXABAN 5 MG TABLET PO SCH ×2 (08:47→19:48)
[2023-05-14] MEDS: INSULIN -REGULAR HUMAN 50 UNIT/0.5 ML ML SQ SCH ×4 (08:48→20:23)
--- NOTE | 2023-05-14 11:50 | RAD REPORT ---
EXAM DESCRIPTION: RAD - Foot Right 3 View - 05/14/2023 11:26 am CLINICAL HISTORY: Right foot pain status post injury FINDINGS: Dislocation second middle phalanx. Cortical irregularity involves the distal aspect of the second proximal phalanx as well as the proxim al aspect of the second middle phalanx. This may indicate osteomyelitis. If clinically indicated furt her evaluation with MRI could be obtained
--- NOTE | 2023-05-14 17:23 | P.PN ---
Subjective Date of Service: 05/14/23 Chief Complaint: Altered mental status, weakness His mental status has improved considerably. This morning, he is alert and oriented x3. He was noted to have a wound on the dorsal aspect of his right second toe. X-ray was requested to evaluate for osteomyelitis. He denies any fevers, chills, or foot pain. Review of Systems 10-point ROS is otherwise unremarkable Physical Examination - Vital Signs Temperature: 97.3 F Blood Pressure: 118/52 Pulse: 92 Respirations: 24 Pulse Ox (%): 100 Assessment And Plan - Plan - Physical Exam General: Alert, In no apparent distress, Oriented x3 HEENT: Atraumatic, Mucous membr. moist/pink, Sclerae nonicteric Neck: JVD not distended Respiratory: Clear to auscultation bilaterally, Normal air movement Cardiovascular: No edema, Regular rate/rhythm, No murmurs Gastrointestinal: Normal bowel sounds, Soft, Non-distended, No tenderness Musculoskeletal: No clubbing, right second toe with ulcer on dorsal aspect Integumentary: No rashes Neurological: Normal affect, Other (slightly confused) # Acute Toxic Metabolic Encephalopathy likely secondary to COVID-19 Infection - improved - Evaluation thus far: - Labs = Na+ 139, Ca2+ 9.2, CO2 32, Glucose 163, Ammonia <15, BUN 19, Vitamin B12 >2000, TSH 1.38 - ABG = pH 7.37, PCO2 44.9, PO2 88.3 - Ethanol level = <10 - CT head/cervical spine (05/04) = "1. No acute intracranial or extra-axial abnormality. 2. No acute cervical spine injury." - MRI brain (05/05) = "No acute intracranial abnormality noted." - CT head (05/06) = "No acute intracranial abnormality." - Management plan: - Mental status is fluctuating - Last reported alcohol use was several months ago - unlikely to be in alcohol withdrawal syndrome or delirium tremens - Pulmonology consulted regarding COVID-19 - recommendations appreciated - Continue prednisone - Neurology consulted and he was evaluated by Dr. Martinez - recommendations appreciated - Recommended thiamine and PRN benzodiazepines # Acute Hypercapnic Respiratory Failure - likely secondary to Ziprasidone s/p Intubation - resolved - ABG = pH 7.06, PCO2 98.8, PO2 85.8 - S/P intubation and subsequent selfextubation - Consulted Pulmonary Medicine - recommendations appreciated - Consulted Respiratory Therapy - Supplemental oxygen to maintain SpO2 > 92% - Encouraged incentive spirometry # Elevated LFTs possible due to Cholelithiasis with Mildly Thickened Gallbladder - RUQ ultrasound = "increased hepatic echotexture consistent with either fatty infiltration or inflammation. Cholelithiasis. Mildly thickened wall may be secondary to incomplete distention, hypoalbuminemia or probably less likely cholecystitis and should be correlated clinically" - General Surgery consulted and spoke with Dr. Garza - recommendations appreciated - Recommended HIDA scan - Monitor LFTs # Deconditioning with Multiple Falls - Consulted PT - recommended SNF - Appreciate CM assistance # History of Prostate Cancer # Right-Sided Pulmonary Nodules - Pulmonary nodules noted on CT from August 2022 - CT chest = "small nodules in the right lower lobe posteriorly show no appreciable change since comparative study. Cholelithiasis. 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 Monitor Hgb. - Follow-up with PCP Hilario Peres M.D.
[2023-05-14] MEDS: TRAMADOL HCL 50 MG TAB PO PRN (19:49)
[2023-05-15] MEDS: IPRATROPIUM BROM 0.5MG/2.5ML NEB SCH ×4 (02:10→20:00)
[2023-05-15 05:47] LABS: Albumin 2.6 g/dL (3.4-5.0); Bilirubin Total 0.9 mg/dL (0.2-1.0); Protein, Total 6.5 g/dL (6.4-8.2)
--- NOTE | 2023-05-15 06:50 | P.CNS ---
Date of Consult: 05/15/23 Reason for Consult: wound right foot Requesting Physician: Hilario Peres Chief Complaint: Altered mental status, weakness Allergies No Known Allergies Allergy (Unverified 08/30/22 15:42) Home Medications: Aspirin 1 tab PO DAILY 08/30/22 Escitalopram [Lexapro*] 1 tab PO DAILY 08/30/22 Losartan Potassium 1 tab PO DAILY 08/30/22 Metformin HCl [Metformin HCl ER] 1 tab PO BID 08/30/22 Apixaban [Eliquis] 5 mg PO BID #60 tab 04/25/23 Docusate [Colace Cap*] 100 mg PO BID #30 cap 04/25/23 Magnesium Chloride [Slow-Mag*] 64 mg PO BID #60 tab 04/25/23 Midodrine HCl [Proamatine*] 5 mg PO TIDWM #90 tab 04/25/23 Pantoprazole [Protonix Tab*] 1 tab PO BID #60 tab 04/25/23 Thiamine HCl [Vitamin B-1*] 100 mg PO DAILY #30 tab 04/25/23 chlordiazePOXIDE HCl [Chlordiazepoxide HCl] 10 mg PO TID #70 cap 04/25/23 Sotalol HCl [Betapace*] 40 mg PO BID 6AM 6PM #60 tab 04/26/23 - Past Medical/Surgical History Diabetic: Yes -: HTN -: Prostate Cancer -: NIDDM2 -: HTN -: ETOH -: A-fib -: Left Shoulder torn rotator cuff -: Left Hip Replacement -: Prostatectomy Psychosocial/ Personal History: Patient lives at home with his mother who has leukemia - Family History Mother Medical History: Lung disease, Cancer Notes: leukemia Father Medical History: Heart disease Notes: afib. alcoholic Brother Medical History: Cancer Notes: pancreatic cancer - Social History Smoking Status: Current every day smoker Alcohol use: Yes CD- Drugs: No Caffeine use: Yes Place of Residence: Home Review of Systems 10-point ROS is otherwise unremarkable Physical Examination Temp Pulse Resp BP Pulse Ox 98.7 F 62 21 H 160/69 H 99 05/15/23 04:00 05/15/23 04:00 05/15/23 04:00 05/15/23 04:00 05/14/23 20:00 General: Unresponsive Cardiovascular: No edema, Abnormal pulses (palpable posterior tibial pulse bilateral, 1/4 dorsalis pedis pulse bilateral) Capillary refill: <2 Seconds Musculoskeletal: No clubbing, No swelling, No contractures, No erythema, No tenderness, No warmth Integumentary: Diabetic ulcer (ulceration dorsal aspect of right second digit measuring 1.0cmX0.8cm with fibrinous base, mild granulation, no purulence, noted periwound erythema, no probing to bone) Neurological: Abnormal sensation Imagings Data: xray right foot suggestive of second digit distal and proximal phalanx osteomyelitis - Problems (1) Type 2 diabetes mellitus with foot ulcer Current Visit: Yes Status: Acute (2) Osteomyelitis of toe of right foot Current Visit: Yes Status: Acute Conclusions/Impression: [place] grade 2/3 ulceration right second digit. Due to altered mental status will discuss treatment options with Dr. Peres and family member with medical power of attorney general. Will weigh options including wound care/iv antibiotics vs. amputation of right second toe Physician Review: Patient Assessed, Agree with Above Assessment and Plan
[2023-05-15] MEDS: INSULIN -REGULAR HUMAN 50 UNIT/0.5 ML ML SQ SCH ×4 (07:30→21:00)
--- NOTE | 2023-05-15 08:14 | P.CNS ---
Date of Consult: 05/15/23 Reason for Consult: Osteomyelitis Chief Complaint: Altered mental status, weakness History of Present Illness: Patient is a 63 yo male with a history of atrial fibrillation, ETOH abuse, DMII and hypertension who presented to the ED with complaints of multiple falls and altered mental status on 05/04. Allergies No Known Allergies Allergy (Unverified 08/30/22 15:42) Home medications list reviewed: Yes Home Medications: Aspirin 1 tab PO DAILY 08/30/22 Escitalopram [Lexapro*] 1 tab PO DAILY 08/30/22 Losartan Potassium 1 tab PO DAILY 08/30/22 Metformin HCl [Metformin HCl ER] 1 tab PO BID 08/30/22 Apixaban [Eliquis] 5 mg PO BID #60 tab 04/25/23 Docusate [Colace Cap*] 100 mg PO BID #30 cap 04/25/23 Magnesium Chloride [Slow-Mag*] 64 mg PO BID #60 tab 04/25/23 Midodrine HCl [Proamatine*] 5 mg PO TIDWM #90 tab 04/25/23 Pantoprazole [Protonix Tab*] 1 tab PO BID #60 tab 04/25/23 Thiamine HCl [Vitamin B-1*] 100 mg PO DAILY #30 tab 04/25/23 chlordiazePOXIDE HCl [Chlordiazepoxide HCl] 10 mg PO TID #70 cap 04/25/23 Sotalol HCl [Betapace*] 40 mg PO BID 6AM 6PM #60 tab 04/26/23 - Past Medical/Surgical History Diabetic: Yes -: HTN -: Prostate Cancer -: NIDDM2 -: HTN -: ETOH -: A-fib -: Left Shoulder torn rotator cuff -: Left Hip Replacement -: Prostatectomy Psychosocial/ Personal History: Patient lives at home with his mother who has leukemia - Family History Mother Medical History: Lung disease, Cancer Notes: leukemia Father Medical History: Heart disease Notes: afib. alcoholic Brother Medical History: Cancer Notes: pancreatic cancer - Social History Smoking Status: Current every day smoker Alcohol use: Yes CD- Drugs: No Caffeine use: Yes Place of Residence: Home Review of Systems Unremarkable Physical Examination Temp Pulse Resp BP Pulse Ox 98.7 F 62 21 H 160/69 H 96 05/15/23 04:00 05/15/23 04:00 05/15/23 04:00 05/15/23 04:00 05/14/23 20:49 General: In no apparent distress, Confused HEENT: Atraumatic, Normocephalic Neck: JVD not distended Respiratory: Clear to auscultation bilaterally, Normal air movement (room air) Cardiovascular: Regular rate/rhythm, Edema (trace BLE edema) Gastrointestinal: Normal bowel sounds, Soft and benign Musculoskeletal: No clubbing Integumentary: Skin lesion (scattered, generalized), Diabetic ulcer (right second toe dorsal aspect) Laboratory Data - Reviewed Microbiology Data - Reviewed Imagings Data: - Reviewed Conclusions/Impression: Problem List Diabetes Mellitus type II Diabetic Foot Ulcers Osteomyelitis Right Second Toe Atrial Fibrillation Hypertension Hx Prostate Cancer Macrocytic Anemia Moderate PCM Osteomyelitis Second Toe of Right Foot Diabetic Foot Ulcer - XR Right Foot 05/14: ": Dislocation second middle phalanx. Cortical irregularity involves the distal aspect of the second proximal phalanx as well as the proximal aspect of the second middle phalanx. This may indicate osteomyelitis." - Dr. Logan on case. - Medical management versus amputation to be determined - He is not currently on antibiotics - No wound cultures available No Leukocytosis Afebrile Recommendations Patient is confused and unable to make medical decisions at this time. Treatment options to be discussed with patient and family members regarding medical manegement of osteomyelitis with 6 weeks of IV antibiotics versus amputation of right second toe. - Start patient on Cefepime and Vancomycin IV for now. - Continue with current wound care to right second toe - Nutritional supplementation. Aspiration precautions. Case discussed with Adeline Shahid
--- NOTE | 2023-05-15 08:42 | RAD REPORT ---
EXAM DESCRIPTION: NM - Hepatobiliary System W/ Ph - 05/15/2023 8:28 am CLINICAL HISTORY: cholelithiasis Abdominal pain COMPARISON: No comparisons TECHNIQUE: The patient was administered 5.8 mCi Tc99m Mebrofenin. Imaging of the right upper quadran t was performed initially for up to 60 minutes. Gallbladder ejection fraction determination was then performed utilizing synthetic 1.8 mgm CCK over a slow 30 minute infusion. FINDINGS: Normal hepatic uptake and excretion with appropriate clearance of background blood pool ac tivity. Normal visualization of biliary and small bowel activity. Gallbladder visualizes within normal time limits. The calculated ejection fraction is 57% (normal gre ater than 35%). Subjective pain reported by the patient: Pre-procedure - none During or subsequent to synthetic CCK infusion - none IMPRESSION: Patient cystic duct and patent sphincter of Oddi. No delay in visualization of the gallb ladder, biliary tree, or duodenum. Ejection fraction is 57% (normal greater than 35%). Subjective patient pain assessment as detailed above.
[2023-05-15] MEDS: MEDIHONEY 44 ML TOPICAL TUBE TOP SCH (09:13)
[2023-05-15] MEDS: predniSONE 10 MG TAB PO SCH (09:13)
[2023-05-15] MEDS: THIAMINE HCL 100 MG TABLET PO SCH ×2 (09:13→21:02)
[2023-05-15] MEDS: APIXABAN 5 MG TABLET PO SCH ×2 (09:13→21:01)
[2023-05-15] MEDS: SOTALOL HCL 80 MG TAB PO SCH ×2 (09:13→17:44)
[2023-05-15] MEDS: TRAMADOL HCL 50 MG TAB PO PRN (14:06)
[2023-05-15] MEDS ORDERED: HALOPERIDOL LACT 5 MG/ML INJ ONE (14:50)
[2023-05-15] MEDS: HALOPERIDOL LACT 5 MG/ML INJ IV PRN (14:52)
[2023-05-15] MEDS ORDERED: VANCOMYCIN 2 GM in NA CHLORIDE 0.9% 500 ML IVPB ONE (17:00)
[2023-05-15] MEDS: Ringers Lactate 1,000 ML IV SCH (17:44)
[2023-05-15] MEDS: CEFEPIME 2 GM in NA CHLORIDE 0.9% 100 ML IV SCH (17:45)
[2023-05-15] MEDS ORDERED: VANCOMYCIN 2.25 GM in NA CHLORIDE 0.9% 500 ML IVPB ONE (18:00)
--- NOTE | 2023-05-15 18:35 | P.PN ---
Subjective Date of Service: 05/15/23 Chief Complaint: Altered mental status, weakness His mental status has worsened. This morning, he is alert and oriented x1 to self. His x-ray is concerning for osteomyelitis. Dr. Logan (Podiatry) to discuss amputation with his family. He denies any fevers, chills, or foot pain. Review of Systems is unable to be obtained Neurological: Confusion Physical Examination - Vital Signs Temperature: 97.4 F Blood Pressure: 139/92 Pulse: 81 Respirations: 21 Pulse Ox (%): 94 Assessment And Plan - Plan - Physical Exam General: Alert, In no apparent distress, Oriented x 1 to self HEENT: Atraumatic, Mucous membr. moist/pink, Sclerae nonicteric Neck: JVD not distended Respiratory: Clear to auscultation bilaterally, Normal air movement Cardiovascular: No edema, Regular rate/rhythm, No murmurs Gastrointestinal: Normal bowel sounds, Soft, Non-distended, No tenderness Musculoskeletal: No clubbing, right second toe with ulcer on dorsal aspect Integumentary: No rashes Neurological: Normal affect, Other (slightly confused) # Acute Toxic Metabolic Encephalopathy likely secondary to COVID-19 Infection - improved - Evaluation thus far: - Labs = Na+ 139, Ca2+ 9.2, CO2 32, Glucose 163, Ammonia <15, BUN 19, Vitamin B12 >2000, TSH 1.38 - ABG = pH 7.37, PCO2 44.9, PO2 88.3 - Ethanol level = <10 - CT head/cervical spine (05/04) = "1. No acute intracranial or extra-axial abnormality. 2. No acute cervical spine injury." - MRI brain (05/05) = "No acute intracranial abnormality noted." - CT head (05/06) = "No acute intracranial abnormality." - Management plan: - Mental status is fluctuating - Last reported alcohol use was several months ago - unlikely to be in alcohol withdrawal syndrome or delirium tremens - Pulmonology consulted regarding COVID-19 - recommendations appreciated - Continue prednisone - Neurology consulted and he was evaluated by Dr. Martinez - recommendations appreciated - Recommended thiamine and PRN benzodiazepines # Likely Right Second Toe Osteomyelitis - Right foot x-ray = "dislocation second middle phalanx. Cortical irregularity involves the distal aspect of the second proximal phalanx as well as the proxima l aspect of the second middle phalanx. This may indicate osteomyelitis. If clinically indicated further evaluation with MRI could be obtained." - Infectious Diseases consulted and spoke with SALES DEVELOPMENT EXECUTIVE Sgawinniei - recommendations appreciated - Recommended vancoymcin + cefepime - Podiatry consulted and sopke with Dr. Logan - recommendations appreciated - He plans to review treatment options with family prior to making any final decisions # Acute Hypercapnic Respiratory Failure - likely secondary to Ziprasidone s/p Intubation - resolved - ABG = pH 7.06, PCO2 98.8, PO2 85.8 - S/P intubation and subsequent selfextubation - Consulted Pulmonary Medicine - recommendations appreciated - Consulted Respiratory Therapy - Supplemental oxygen to maintain SpO2 > 92% - Encouraged incentive spirometry # Elevated LFTs possible due to Cholelithiasis with Mildly Thickened Gallbladder - RUQ ultrasound = "increased hepatic echotexture consistent with either fatty infiltration or inflammation. Cholelithiasis. Mildly thickened wall may be secondary to incomplete distention, hypoalbuminemia or probably less likely cholecystitis and should be correlated clinically" - General Surgery consulted and spoke with Dr. Garza - recommendations appreciated - HIDA scan = "patient cystic duct and patent sphincter of Oddi. No delay in visualization of the gallbladder, biliary tree, or duodenum. Ejection fraction is 57% (normal greater than 35%). Subjective patient pain assessment as detailed above" - Monitor LFTs # Deconditioning with Multiple Falls - Consulted PT - recommended SNF - Appreciate CM assistance # History of Prostate Cancer # Right-Sided Pulmonary Nodules - Pulmonary nodules noted on CT from August 2022 - CT chest = "small nodules in the right lower lobe posteriorly show no appreciable change since comparative study. Cholelithiasis. 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 Monitor Hgb. - Follow-up with PCP Hilario Peres M.D.
[2023-05-16] MEDS: IPRATROPIUM BROM 0.5MG/2.5ML NEB SCH ×4 (01:10→20:00)
[2023-05-16] MEDS: CEFEPIME 2 GM in NA CHLORIDE 0.9% 100 ML IV SCH ×2 (01:16→10:06)
[2023-05-16] MEDS ORDERED: NA CHLORIDE 0.9% 100 ML ONE (01:20)
[2023-05-16] MEDS ORDERED: VANCOMYCIN 1.25 GM in NA CHLORIDE 0.9% 250 ML IVPB SCH (05:00)
[2023-05-16] MEDS: VANCOMYCIN 1.25 GM in NA CHLORIDE 0.9% 250 ML IVPB SCH ×2 (05:09→17:29)
[2023-05-16] MEDS: SOTALOL HCL 80 MG TAB PO SCH ×2 (05:11→17:29)
[2023-05-16 05:12] LABS: Absolute Lymphocytes (CBC) 2.1 K/uL (0.7-4.9); Hematocrit 37.9 % (39.6-49.0); Lymphocytes % 24.3 % (15.3-44.8); MPV 11.5 fL (7.6-11.3); Platelets 154 thou/uL (152-406); RBC Red Blood Cell Count 3.68 M/uL (4.33-5.43)
[2023-05-16 05:28] LABS: Albumin 2.7 g/dL (3.4-5.0); Bilirubin Total 1.2 mg/dL (0.2-1.0); Potassium 4.6 mEq/L (3.5-5.1); Protein, Total 6.9 g/dL (6.4-8.2)
[2023-05-16 05:39] VITALS: BMI 25.2
[2023-05-16] MEDS: INSULIN -REGULAR HUMAN 50 UNIT/0.5 ML ML SQ SCH ×4 (07:30→21:00)
[2023-05-16] MEDS: ALBUTEROL 2.5 MG/3 ML NEB SOL NEB PRN (08:30)
[2023-05-16] MEDS: THIAMINE HCL 100 MG TABLET PO SCH ×2 (10:06→21:28)
[2023-05-16] MEDS: APIXABAN 5 MG TABLET PO SCH ×2 (10:06→21:28)
[2023-05-16] MEDS: MEDIHONEY 44 ML TOPICAL TUBE TOP SCH (10:07)
--- NOTE | 2023-05-16 11:28 | P.PN ---
Subjective Date of Service: 05/16/23 Chief Complaint: Altered mental status, weakness No acute events overnight. He is alert and oriented x3 this morning. Spoke with him as well as his , Ms. Hallman. They are deciding on possible amputation vs continued IV antibiotics. They would like to discuss further and make a d ecision by the end of the weekend. He denies any fevers, chills, or foot pain. Review of Systems 10-point ROS is otherwise unremarkable General: Weakness (generalized) Musculoskeletal: Foot Pain Neurological: Confusion (intermittent) Physical Examination - Vital Signs Temperature: 97.5 F Blood Pressure: 107/69 Pulse: 82 Respirations: 17 Pulse Ox (%): 94 Assessment And Plan - Plan - Physical Exam General: Alert, In no apparent distress, Oriented x 3 HEENT: Atraumatic, Mucous membr. moist/pink, Sclerae nonicteric Neck: JVD not distended Respiratory: Clear to auscultation bilaterally, Normal air movement Cardiovascular: No edema, Regular rate/rhythm, No murmurs Gastrointestinal: Normal bowel sounds, Soft, Non-distended, No tenderness Musculoskeletal: No clubbing, right second toe with ulcer on dorsal aspect Integumentary: No rashes Neurological: Normal affect, intermittent confusion # Acute Toxic Metabolic Encephalopathy likely secondary to COVID-19 Infection - improved - Evaluation thus far: - Labs = Na+ 139, Ca2+ 9.2, CO2 32, Glucose 163, Ammonia <15, BUN 19, Vitamin B12 >2000, TSH 1.38 - ABG = pH 7.37, PCO2 44.9, PO2 88.3 - Ethanol level = <10 - CT head/cervical spine (05/04) = "1. No acute intracranial or extra-axial abnormality. 2. No acute cervical spine injury." - MRI brain (05/05) = "No acute intracranial abnormality noted." - CT head (05/06) = "No acute intracranial abnormality." - Management plan: - Mental status is fluctuatingcode job was called yesterday and he required haloperidol and soft restraints temporarily. - Last reported alcohol use was several months ago - unlikely to be in alcohol withdrawal syndrome or delirium tremens - Pulmonology consulted regarding COVID-19 - recommendations appreciated - Discontinued prednisone as this may exacerbate encephalopathy - Neurology consulted and he was evaluated by Dr. Martinez - recommendations appreciated - Recommended thiamine and PRN benzodiazepines # Likely Right Second Toe Osteomyelitis - Right foot x-ray = "dislocation second middle phalanx. Cortical irregularity involves the distal aspect of the second proximal phalanx as well as the proximal aspect of the second middle phalanx. This may indicate osteomyelitis. If clinically indicated further evaluation with MRI could be obtained." - Infectious Diseases consulted - recommendations appreciated - Recommended vancomycin + cefepime, cefepime switched to ceftriaxone as cefepime may cause worsening mental status - Podiatry consulted and spoke with Dr. Logan - recommendations appreciated - Mr. Smith and his family will discuss IV antibiotics vs amputation further prior to making a decision # Acute Hypercapnic Respiratory Failure - likely secondary to Ziprasidone s/p Intubation - resolved - ABG = pH 7.06, PCO2 98.8, PO2 85.8 - S/P intubation and subsequent selfextubation - Consulted Pulmonary Medicine - recommendations appreciated - Consulted Respiratory Therapy - Supplemental oxygen to maintain SpO2 > 92% - Encouraged incentive spirometry # Elevated LFTs possible due to Cholelithiasis with Mildly Thickened Gallbladder - RUQ ultrasound = "increased hepatic echotexture consistent with either fatty infiltration or inflammation. Cholelithiasis. Mildly thickened wall may be secondary to incomplete distention, hypoalbuminemia or probably less likely c holecystitis and should be correlated clinically" - HIDA scan = "patient cystic duct and patent sphincter of Oddi. No delay in visualization of the gallbladder, biliary tree, or duodenum. Ejection fraction is 57% (normal greater than 35%). Subjective patient pain assessment as detailed above" - General Surgery consulted and spoke with Dr. Garza - recommendations appreciated - Recommends non-operative management - Monitor LFTs # Deconditioning with Multiple Falls - Consulted PT - recommended SNF - Appreciate CM assistance # History of Prostate Cancer # Right-Sided Pulmonary Nodules - Pulmonary nodules noted on CT from August 2022 - CT chest = "small nodules in the right lower lobe posteriorly show no appreciable change since comparative study. Cholelithiasis. 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 Monitor Hgb. - Follow-up with PCP Hilario Peres M.D.
[2023-05-16 12:18] LABS: C.diff Antigen/Toxin Ag neg : Tox neg (NEG : NEG)
[2023-05-16] MEDS ORDERED: HALOPERIDOL LACT 5 MG/ML INJ IV ONE ×2 (13:32→14:00)
[2023-05-16] MEDS: HALOPERIDOL LACT 5 MG/ML INJ IV PRN ×2 (13:34→18:06)
[2023-05-16] MEDS ORDERED: HALOPERIDOL LACT 5 MG/ML INJ ONE ×2 (13:41→18:16)
[2023-05-16] MEDS: Ringers Lactate 1,000 ML IV SCH (13:47)
[2023-05-16] MEDS: QUETIAPINE 25 MG TAB PO SCH (21:27)
[2023-05-17] MEDS: IPRATROPIUM BROM 0.5MG/2.5ML NEB SCH ×4 (02:00→20:45)
[2023-05-17 05:18] LABS: Albumin 2.6 g/dL (3.4-5.0); Bilirubin Total 1.3 mg/dL (0.2-1.0); Potassium 4.1 mEq/L (3.5-5.1); Protein, Total 6.5 g/dL (6.4-8.2)
[2023-05-17] MEDS: VANCOMYCIN 1.25 GM in NA CHLORIDE 0.9% 250 ML IVPB SCH (05:50)
[2023-05-17] MEDS: SOTALOL HCL 80 MG TAB PO SCH ×2 (05:52→17:43)
[2023-05-17] MEDS: INSULIN -REGULAR HUMAN 50 UNIT/0.5 ML ML SQ SCH ×4 (07:28→20:14)
[2023-05-17 07:58] LABS: Bilirubin Direct 0.7 mg/dL (0-0.2)
[2023-05-17] MEDS: THIAMINE HCL 100 MG TABLET PO SCH ×2 (08:24→20:14)
[2023-05-17] MEDS: APIXABAN 5 MG TABLET PO SCH ×2 (08:24→20:13)
[2023-05-17] MEDS: CEFTRIAXONE 1,000 MG in NA CHLORIDE 0.9% 50 ML IVPB SCH (08:25)
[2023-05-17] MEDS: MEDIHONEY 44 ML TOPICAL TUBE TOP SCH (08:25)
[2023-05-17] MEDS ORDERED: LOPERAMIDE HCL 2 MG CAPSULE PO PRN (11:30)
--- NOTE | 2023-05-17 16:03 | P.PN ---
Subjective Date of Service: 05/17/23 Chief Complaint: Altered mental status, weakness Yesterday evening, he became combative and required haloperidol. This morning, he is calm and cooperative. He is alert and oriented x2 to person and place this morning. He and his family have decided to proceed with amputation. Dr. Logan is planning to operate tomorrow. He denies any fevers, chills, or foot pain. Review of Systems 10-point ROS is otherwise unremarkable Neurological: Confusion (intermittent) Physical Examination - Vital Signs Temperature: 97.8 F Blood Pressure: 106/72 Pulse: 92 Respirations: 33 Pulse Ox (%): 94 Assessment And Plan - Plan - Physical Exam General: Alert, In no apparent distress, Oriented x 2 HEENT: Atraumatic, Mucous membr. moist/pink, Sclerae nonicteric Neck: JVD not distended Respiratory: Clear to auscultation bilaterally, Normal air movement Cardiovascular: No edema, Regular rate/rhythm, No murmurs Gastrointestinal: Normal bowel sounds, Soft, Non-distended, No tenderness Musculoskeletal: No clubbing, right second toe with ulcer on dorsal aspect Integumentary: No rashes Neurological: Normal affect, intermittent confusion # Acute Toxic Metabolic Encephalopathy likely secondary to COVID-19 Infection - improved - Evaluation thus far: - Labs = Na+ 139, Ca2+ 9.2, CO2 32, Glucose 163, Ammonia <15, BUN 19, Vitamin B12 >2000, TSH 1.38 - ABG = pH 7.37, PCO2 44.9, PO2 88.3 - Ethanol level = <10 - CT head/cervical spine (05/04) = "1. No acute intracranial or extra-axial abnormality. 2. No acute cervical spine injury." - MRI brain (05/05) = "No acute intracranial abnormality noted." - CT head (05/06) = "No acute intracranial abnormality." - Management plan: - Mental status is fluctuatingcode [facility] was called yesterday and he required haloperidol. - Last reported alcohol use was several months ago - unlikely to be in alcohol withdrawal syndrome or delirium tremens - Pulmonology consulted regarding COVID-19 - recommendations appreciated - Discontinued prednisone as this may exacerbate encephalopathy - Neurology consulted and he was evaluated by Dr. Martinez - recommendations appreciated - Recommended thiamine and PRN benzodiazepines # Likely Right Second Toe Osteomyelitis - Right foot x-ray = "dislocation second middle phalanx. Cortical irregularity involves the distal aspect of the second proximal phalanx as well as the proximal aspect of the second middle phalanx. This may indicate osteomyelitis. If clinically indicated further evaluation with MRI could be obtained." - Infectious Diseases consulted - recommendations appreciated - Recommended vancomycin + cefepime, cefepime switched to ceftriaxone as cefepime may cause worsening mental status - Podiatry consulted and spoke with Dr. Logan - recommendations appreciated - Plans for amputation of right second toe tomorrow, will place NPO after midnight # Acute Hypercapnic Respiratory Failure - likely secondary to Ziprasidone s/p Intubation - resolved - ABG = pH 7.06, PCO2 98.8, PO2 85.8 - S/P intubation and subsequent selfextubation - Consulted Pulmonary Medicine - recommendations appreciated - Consulted Respiratory Therapy - Supplemental oxygen to maintain SpO2 > 92% - Encouraged incentive spirometry # Elevated LFTs possible due to Cholelithiasis with Mildly Thickened Gallbladder - RUQ ultrasound = "increased hepatic echotexture consistent with either fatty infiltration or inflammation. Cholelithiasis. Mildly thickened wall may be secondary to incomplete distention, hypoalbuminemia or probably less likely cholecystitis and should be correlated clinically" - HIDA scan = "patient cystic duct and patent sphincter of Oddi. No delay in visualization of the gallbladder, biliary tree, or duodenum. Ejection fraction is 57% (normal greater than 35%). Subjective patient pain assessment as detailed above" - General Surgery consulted and spoke with Dr. Garza - recommendations appreciated - Recommends non-operative management - Monitor LFTs # Deconditioning with Multiple Falls - Consulted PT - recommended SNF - Appreciate CM assistance # History of Prostate Cancer # Right-Sided Pulmonary Nodules - Pulmonary nodules noted on CT from August 2022 - CT chest = "small nodules in the right lower lobe posteriorly show no appreciable change since comparative study. Cholelithiasis. 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 Monitor Hgb. - Follow-up with PCP Hilario Peres M.D.
[2023-05-17] MEDS: Ringers Lactate 1,000 ML IV SCH (17:43)
[2023-05-17] MEDS ORDERED: VANCOMYCIN 1.5 GM in NA CHLORIDE 0.9% 500 ML IVPB SCH (18:00)
[2023-05-17] MEDS: QUETIAPINE 25 MG TAB PO SCH (20:14)
[2023-05-17] MEDS: HALOPERIDOL LACT 5 MG/ML INJ IV PRN (21:41)
[2023-05-18] MEDS: IPRATROPIUM BROM 0.5MG/2.5ML NEB SCH ×3 (02:00→13:55)
[2023-05-18 05:05] LABS: Albumin 2.4 g/dL (3.4-5.0); Bilirubin Direct 0.7 mg/dL (0-0.2); Bilirubin Total 1.1 mg/dL (0.2-1.0); Magnesium 1.8 mg/dL (1.6-2.4); Phosphorus 3.9 mg/dL (2.5-4.9); Potassium 4.2 mEq/L (3.5-5.1); Protein, Total 6.3 g/dL (6.4-8.2)
[2023-05-18] MEDS ORDERED: MAGNESIUM SULFATE 1 gm IVPB 1 GM/100 ML BAG IV ONE (05:43)
[2023-05-18] MEDS: SOTALOL HCL 80 MG TAB PO SCH ×2 (06:00→17:29)
[2023-05-18] MEDS: Ringers Lactate 1,000 ML IV SCH (06:00)
[2023-05-18] MEDS ORDERED: NA CHLORIDE 0.9% 1,000 ML ONE (07:07)
[2023-05-18] MEDS ORDERED: BUPIVACAINE 0.5% PF 10 ML VIAL ONE (07:12)
[2023-05-18] MEDS ORDERED: LIDOCAINE 1% 20 ML MDV ONE (07:12)
[2023-05-18] MEDS ORDERED: FENTANYL CITR 100 MCG/2 ML ONE (07:38)
[2023-05-18] MEDS ORDERED: LIDOCAINE 2% MPF 5 ML VIAL ONE (07:38)
[2023-05-18] MEDS ORDERED: propofoL 200 MG/20 ML VIAL IV ONE (07:38)
[2023-05-18] MEDS ORDERED: Phenylephrine HCl 10 MG/ML 1 ML VIAL ONE (07:39)
[2023-05-18] MEDS ORDERED: NS 0.9% VIAL 10 ML ONE (07:48)
[2023-05-18] MEDS ORDERED: ONDANSETRON 4 MG/2 ML VIAL ONE (08:02)
[2023-05-18] MEDS: INSULIN -REGULAR HUMAN 50 UNIT/0.5 ML ML SQ SCH ×4 (08:30→20:39)
--- NOTE | 2023-05-18 08:42 | P.PN ---
Subjective Date of Service: 05/17/23 Chief Complaint: Altered mental status, weakness Subjective: No new changes, Doing well Review of Systems 10-point ROS is otherwise unremarkable Physical Examination - Vital Signs Temperature: 99.1 F Blood Pressure: 104/62 Pulse: 106 Respirations: 18 Pulse Ox (%): 97 - Physical Exam General: Oriented x2 Cardiovascular: No edema, Normal pulses Capillary refill: <2 Seconds Musculoskeletal: No clubbing, No swelling, No contractures, No erythema, No tenderness, No warmth Integumentary: Other (Wound right second digit is stable with granular base, bone exposure, no purulence) Neurological: Abnormal sensation Assessment And Plan - Current Problems (Diagnosis) (1) Type 2 diabetes mellitus with foot ulcer Current Visit: Yes Status: Acute (2) Osteomyelitis of toe of right foot Current Visit: Yes Status: Acute - Plan Discussed options with patient and family and have decided to move forward with amputation of the right second digit. Patient will be npo after midnight and scheduled for surgery tomorrow morning Physician Review: Patient Assessed, Agree with Above Assessment and Plan
--- NOTE | 2023-05-18 08:44 | P.OP ---
Preoperative diagnosis: right second digit osteomyelitis Postoperative diagnosis: same Primary procedure: right second digit amputation Other procedure(s): none Anesthesia: MAC with 8 cc 1:1 0.5% marcaine/1%lidocaine plain Estimated blood loss: <20cc Specimen: toe for gross Findings: osteomyelitis right second digit Operative Technique: see dictated operative note Complications: None Transferred to: Recovery Room Condition: Good
[2023-05-18] MEDS: CEFTRIAXONE 1,000 MG in NA CHLORIDE 0.9% 50 ML IVPB SCH (09:00)
[2023-05-18] MEDS: APIXABAN 5 MG TABLET PO SCH ×2 (09:00→20:39)
[2023-05-18] MEDS: MEDIHONEY 44 ML TOPICAL TUBE TOP SCH ×2 (09:00→14:46)
--- NOTE | 2023-05-18 09:17 | P.PN ---
Date of Service: 05/18/23 Chief Complaint: Altered mental status, weakness Subjective: s/p amputation of right second toe this morning. Tolerated procedure well. No new or worsening complaints at this time. Confused. No acute events reported overnight. Physical Examination Temp Pulse Resp BP Pulse Ox 99.1 F 106 H 18 104/62 97 05/18/23 08:42 05/18/23 08:42 05/18/23 08:42 05/18/23 08:42 05/18/23 08:42 General: In no apparent distress, Confused HEENT: Atraumatic, Normocephalic Neck: JVD not distended Respiratory: Clear to auscultation bilaterally. Normal air movement. Cardiovascular: Tachycardic. No edema. Gastrointestinal: Normal bowel sounds, Soft and benign Musculoskeletal: No clubbing. s/p amputation right second toe. Integumentary: Skin lesion (scattered, generalized). Right foot dressing clean dry and intact. Laboratory Data - Reviewed Microbiology Data - Reviewed Imagings Data: - Reviewed Medications List: Reviewed Assessment and Plan Problem List Diabetes Mellitus type II Diabetic Foot Ulcers Osteomyelitis Right Second Toe Atrial Fibrillation Hypertension Hx Prostate Cancer Macrocytic Anemia Moderate PCM Osteomyelitis Second Toe of Right Foot Diabetic Foot Ulcer - XR Right Foot 05/14: ": Dislocation second middle phalanx. Cortical irregular ity involves the distal aspect of the second proximal phalanx as well as the proximal aspect of the second middle phalanx. This may indicate osteomyelitis." - Dr. Logan on case. - s/p amputation of right second toe 05/18 - On Rocephin and Vancomycin (05/15-) No Leukocytosis. Afebrile Recommendations - underwent amputation of right second toe this morning 05/18. - Started on Bactrim PO. Continue for 5 days. (05/18-05/23) - Follow up with or PCP as outpatient in 1-2 weeks Keep leg elevated. Continue wound care per surgeon. Case discussed with Adeline Shahid
[2023-05-18] MEDS: THIAMINE HCL 100 MG TABLET PO SCH ×2 (09:46→20:39)
[2023-05-18] MEDS: SMZ./TMP. 800/160 MG TABLET PO SCH ×2 (13:30→20:39)
--- NOTE | 2023-05-18 16:09 | P.PN ---
Subjective Date of Service: 05/18/23 Chief Complaint: Altered mental status, weakness Earlier this morning, he underwent a second right toe amputation. He was still lethargic post-procedure on rounds; however, he woke easily and was alert and oriented x 3. Spoke with Infectious Diseases team, who recommended 5 days of carson lfamethoxazole-trimethoprim. He denies any particular concerns this morning. Anticipate discharge tomorrow. Review of Systems 10-point ROS is otherwise unremarkable Physical Examination - Vital Signs Temperature: 99.1 F Blood Pressure: 115/78 Pulse: 88 Respirations: 19 Pulse Ox (%): 100 Assessment And Plan - Plan - Physical Exam General: Alert, In no apparent distress, Oriented x 2 HEENT: Atraumatic, Mucous membr. moist/pink, Sclerae nonicteric Neck: JVD not distended Respiratory: Clear to auscultation bilaterally, Normal air movement Cardiovascular: No edema, Regular rate/rhythm, No murmurs Gastrointestinal: Normal bowel sounds, Soft, Non-distended, No tenderness Musculoskeletal: No clubbing, right foot covered in clean dressing Integumentary: No rashes Neurological: Normal affect, intermittent confusion # Acute Toxic Metabolic Encephalopathy likely secondary to COVID-19 Infection - improved - Evaluation thus far: - Labs = Na+ 139, Ca2+ 9.2, CO2 32, Glucose 163, Ammonia <15, BUN 19, Vitamin B12 >2000, TSH 1.38 - ABG = pH 7.37, PCO2 44.9, PO2 88.3 - Ethanol level = <10 - CT head/cervical spine (05/04) = "1. No acute intracranial or extra-axial abnormality. 2. No acute cervical spine injury." - MRI brain (05/05) = "No acute intracranial abnormality noted." - CT head (05/06) = "No acute intracranial abnormality." - Management plan: - Mental status is fluctuating - Last reported alcohol use was several months ago - unlikely to be in alcohol withdrawal syndrome or delirium tremens - Pulmonology consulted regarding COVID-19 - recommendations appreciated - Discontinued prednisone as this may exacerbate encephalopathy - Neurology consulted and he was evaluated by Dr. Martinez - recommendations appreciated - Recommended thiamine and PRN benzodiazepines # Likely Right Second Toe Osteomyelitis - Right foot x-ray = "dislocation second middle phalanx. Cortical irregularity involves the distal aspect of the second proximal phalanx as well as the proximal aspect of the second middle phalanx. This may indicate osteomyelitis. If clinically indicated further evaluation with MRI could be obtained." - Infectious Diseases consulted and spoke with EQUIPMENT ENGINEER Nathalie - recommendations appreciated - Started on sulfamethoxazole-trimethoprim - Podiatry consulted and spoke with Dr. Logan - recommendations appreciated - S/P amputation of right second toe today # Acute Hypercapnic Respiratory Failure - likely secondary to Ziprasidone s/p Intubation - resolved - ABG = pH 7.06, PCO2 98.8, PO2 85.8 - S/P intubation and subsequent selfextubation - Consulted Pulmonary Medicine - recommendations appreciated - Consulted Respiratory Therapy - Supplemental oxygen to maintain SpO2 > 92% - Encouraged incentive spirometry # Elevated LFTs possible due to Cholelithiasis with Mildly Thickened Gallbladder - RUQ ultrasound = "increased hepatic echotexture consistent with either fatty infiltration or inflammation. Cholelithiasis. Mildly thickened wall may be secondary to incomplete distention, hypoalbuminemia or probably less likely cholecystitis and should be correlated clinically" - HIDA scan = "patient cystic duct and patent sphincter of Oddi. No delay in visualization of the gallbladder, biliary tree, or duodenum. Ejection fraction is 57% (normal greater than 35%). Subjective patient pain assessment as detailed above" - General Surgery consulted and spoke with Dr. Garza - recommendations appreciated - Recommends non-operative management - Monitor LFTs # Deconditioning with Multiple Falls - Consulted PT - recommended SNF - Appreciate CM assistance # History of Prostate Cancer # Right-Sided Pulmonary Nodules - Pulmonary nodules noted on CT from August 2022 - CT chest = "small nodules in the right lower lobe posteriorly show no appreciable change since comparative study. Cholelithiasis. 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 Monitor Hgb. - Follow-up with PCP Hilario Peres M.D.
--- NOTE | 2023-05-18 18:27 | OP ---
Surgeon: Jose Logan Jr, DPM Preoperative Diagnosis: Right second digit osteomyelitis. Postoperative Diagnosis: Right second digit osteomyelitis. Procedure: Right second digit amputation. Pathology: Toe sent for gross. Anesthesia: MAC with 8 cc 1:1 0.5% Marcaine and 1% lidocaine plain. Hemostasis: None. Estimated Blood Loss: Less than 20 cc. Materials: 2-0 Prolene. Injectables: None. Complication: None. Procedure In Detail: Patient was brought into [facility] Operating Room and placed on t he OR table in supine position. Patient was placed under sedation by the anesthesiologist and 8 cc 1 :1 0.5% Marcaine and 1% lidocaine plain were injected in local fashion in right lower extremity. A W ell-padded pneumatic ankle tourniquet was applied to the right lower extremity and patient was preppe d and draped in the usual aseptic manner. Attention was directed to the right second digit, at which time ulceration with bone exposure of the dorsal aspect of the right second digit proximal interphal angeal joint was identified. At this time, a racquet type incision was made at the base of the secon d toe extending over the first of the second metatarsal head. Skin incision was carried straight to bone. There was noted to be some bleeding noted, not perfused. At this time, utilizing sharp and bl unt dissection, the soft tissue structures are dissected to the level of the second metatarsophalange al joint capsule, at which time the toe was disarticulated from the second metatarsophalangeal joint utilizing a 15 blade. Next, utilizing copious amounts of normal sterile saline was irrigated utilizi ng a fresh 15 blade. The medial and lateral flaps were remodeled and closure was obtained by advtyi ng the medial and lateral flaps together and closure with 2-0 Prolene. Sterile dressing consisting o f Xeroform, 4 x 4's, Kerlix, and an Prince wrap were applied to the right lower extremity. The patient tolerated the procedure and anesthesia well, was transferred from OR to recovery with vital signs sta ble and neurovascular status intact. RS/MODL Voice ID: [id number] Report ID: [id number]
--- NOTE | 2023-05-18 20:02 | P.PN ---
Date of Service: 05/19/23 Subjective: 05/19 note ROS: 10 point ROS as noted above, otherwise negative Physical Exam: Gen: NAD, confused HEENT: normal conjunctiva, sclera anicteric CV: regular rate & rhythm, no edema Pulm: non-labored respirations on room air, clear bilaterally Abd: soft, non-tender, non-distended MSK: s/p amputation right second toe, dressing in place Neuro: normal speech, normal affect, moves all extremities Problem List: 1. Acute Toxic Metabolic Encephalopathy likely secondary to COVID-19 Infection - improved 2. Osteomyelitis Second Toe of Right Foot 3. Diabetic Foot Ulcer 4. Acute Hypercapnic Respiratory Failure - likely secondary to Ziprasidone s/p Intubation - resolved 5. Elevated LFTs possible due to Cholelithiasis with Mildly Thickened Gallbladder 6. Deconditioning with Multiple Falls 7. Atrial Fibrillation, chronic 8. Macrocytic Anemia 9. Right-sided Pulmonary Nodules 10. h/o prostate cancer PLAN Neurology consulted continue thiamine and PRN benzodiazepines xray Right Foot (05/14): Dislocation second middle phalanx. Cortical irregularity involves the distal aspect of the second proximal phalanx as well as the proximal aspect of the second middle phalanx. This may indicate osteomyelitis ID consulted Continue Bactrim (05/18-05/23) x5 day per ID Podiatry consulted s/p amputation of right second toe 05/18 Pulmonology consulted s/p intubation and subsequent selfextubation Encouraged incentive spirometry HIDA scan: patient cystic duct and patent sphincter of Oddi. No delay in visualization of the gallbladder, biliary tree, or duodenum. Ejection fraction is 57% (normal greater than 35%). Subjective patient pain assessment as detailed above General Surgery consulted Recommends non-operative management Monitor LFTs PT consult Continue home sotalol, apixaban Continue home medications VTE: Home eliquis Code: Full Dispo: SNF ss/cm consulted for SNF
[2023-05-18] MEDS: QUETIAPINE 25 MG TAB PO SCH (20:39)
[2023-05-19] MEDS: Ringers Lactate 1,000 ML IV SCH (02:21)
[2023-05-19 05:30] LABS: Albumin 2.2 g/dL (3.4-5.0); Bilirubin Direct 0.7 mg/dL (0-0.2); Bilirubin Total 1.1 mg/dL (0.2-1.0); Potassium 4.2 mEq/L (3.5-5.1); Protein, Total 5.8 g/dL (6.4-8.2)
[2023-05-19] MEDS: SOTALOL HCL 80 MG TAB PO SCH (05:47)
[2023-05-19 05:50] LABS: Magnesium 1.6 mg/dL (1.6-2.4); Phosphorus 2.6 mg/dL (2.5-4.9)
[2023-05-19] MEDS ORDERED: MAGNESIUM SULFATE 1 gm IVPB 1 GM/100 ML BAG IV ONE (07:30)
[2023-05-19] MEDS: INSULIN -REGULAR HUMAN 50 UNIT/0.5 ML ML SQ SCH ×2 (07:30→11:30)
--- NOTE | 2023-05-19 08:11 | P.PN ---
Subjective Date of Service: 05/19/23 Chief Complaint: Altered mental status, weakness Subjective: Improving Patient is s/p 1 day right second digit amputation Review of Systems 10-point ROS is otherwise unremarkable Physical Examination - Vital Signs Temperature: 98.2 F Blood Pressure: 126/81 Pulse: 104 Respirations: 22 Pulse Ox (%): 100 - Physical Exam General: Oriented x3 Cardiovascular: No edema, Normal pulses Capillary refill: <2 Seconds Musculoskeletal: No clubbing, No swelling, No contractures, No erythema, No tenderness, No warmth Integumentary: No rashes, No breakdown, No significant lesion, No tenderness/swelling, No erythema, No warmth, No cyanosis, Other (Right second digit amputation site has skin edges well approximated, no erythema, no puru lence, no signs of dehiscence.) Neurological: Abnormal sensation Assessment And Plan - Current Problems (Diagnosis) (1) Type 2 diabetes mellitus with foot ulcer Current Visit: Yes Status: Acute (2) Osteomyelitis of toe of right foot Current Visit: Yes Status: Acute - Plan Sutures to be left intact for 3 weeks. Dressing changes to wound [id number]. Patient to follow up with Dr. Logan as needed Physician Review: Patient Assessed, Agree with Above Assessment and Plan
[2023-05-19] MEDS: APIXABAN 5 MG TABLET PO SCH (08:30)
[2023-05-19] MEDS: SMZ./TMP. 800/160 MG TABLET PO SCH (08:30)
[2023-05-19] MEDS: THIAMINE HCL 100 MG TABLET PO SCH (08:30)
--- NOTE | 2023-05-19 09:32 | P.PN ---
Date of Service: 05/19/23 Chief Complaint: Altered mental status, weakness Subjective: Patient resting comfortably in bed. No new or worsening complaints. No acute events reported overnight. Physical Examination Temp Pulse Resp BP Pulse Ox 98.2 F 104 H 22 H 126/81 100 05/19/23 08:11 05/19/23 08:11 05/19/23 08:11 05/19/23 08:11 05/19/23 08:11 General: In no apparent distress. HEENT: Atraumatic, Normocephalic Neck: JVD not distended Respiratory: Clear to auscultation bilaterally. Normal air movement. Cardiovascular: No edema. Gastrointestinal: Normal bowel sounds, Soft and benign Musculoskeletal: No clubbing. s/p amputation right second toe. Integumentary: Right foot dressing clean dry and intact. Laboratory Data - Reviewed Microbiology Data - Reviewed Imagings Data: - Reviewed Medications List: Reviewed Assessment and Plan Problem List Diabetes Mellitus type II Diabetic Foot Ulcers Osteomyelitis Right Second Toe Atrial Fibrillation Hypertension Hx Prostate Cancer Macrocytic Anemia Moderate PCM Osteomyelitis Second Toe of Right Foot Diabetic Foot Ulcer - XR Right Foot 05/14: ": Dislocation second middle phalanx. Cortical irregularity involves the distal aspect of the second proximal phalanx as well as the proximal aspect of the second middle phalanx. This may indicate osteomyelitis." - Dr. Logan on case. - s/p amputation of right second toe 05/18 - Rocephin and Vancomycin (05/15-05/18) switched to Bactrim PO 05/18 - No Leukocytosis. Afebrile Recommendations - Continue Bactrim PO for 7 days (05/18-05/25) - Follow up with as outpatient Keep leg elevated. Continue wound care per surgeon. Case discussed with Adeline Shahid
[2023-05-19 11:57] VITALS: O2SAT 98
[2023-05-19 14:07] VITALS: TEMP 98.6
[2023-05-19 15:22] VITALS: BP 120/76
== END 2023-05-19 15:00 | DRG 981 ==
LOC: ER 02:16 → ERHOLD 04:19 → 3RD-ICU 07:32
PROVIDERS: ADMIT Hospitalist; ATTEND Hospitalist
PROC: 5A1935Z Respiratory Ventilation, Less than 24 Consecutive Hours (ICD-10-PCS; 2023-05-06)
PROC: 0BH17EZ Insertion of Endotracheal Airway into Trachea, Via Natural or Artificial Opening (ICD-10-PCS; 2023-05-06)
PROC: 5A09557 Assistance with Respiratory Ventilation, Greater than 96 Consecutive Hours, Continuous Positive Airway Pressure (ICD-10-PCS; 2023-05-08)
PROC: 0Y6R0Z1 Detachment at Right 2nd Toe, High, Open Approach (ICD-10-PCS; principal; 2023-05-18 07:30)
DX: U07.1 COVID-19 (principal); G92.8 Other toxic encephalopathy; J12.82 Pneumonia due to coronavirus disease 2019; J96.02 Acute respiratory failure with hypercapnia; I48.20 Chronic atrial fibrillation, unspecified; M86.171 Other acute osteomyelitis, right ankle and foot; E44.0 Moderate protein-calorie malnutrition; E11.69 Type 2 diabetes mellitus with other specified complication; E11.621 Type 2 diabetes mellitus with foot ulcer; L97.519 Non-pressure chronic ulcer of other part of right foot with unspecified severity; I10 Essential (primary) hypertension; D53.9 Nutritional anemia, unspecified; F10.10 Alcohol abuse, uncomplicated; G47.33 Obstructive sleep apnea (adult) (pediatric); K70.9 Alcoholic liver disease, unspecified; K80.20 Calculus of gallbladder without cholecystitis without obstruction; E83.42 Hypomagnesemia; F17.210 Nicotine dependence, cigarettes, uncomplicated; R29.6 Repeated falls; R91.8 Other nonspecific abnormal finding of lung field; R79.89 Other specified abnormal findings of blood chemistry; Z78.1 Physical restraint status; Z90.79 Acquired absence of other genital organ(s); Z68.26 Body mass index [BMI] 26.0-26.9, adult; Z91.81 History of falling; Z79.82 Long term (current) use of aspirin; Z79.01 Long term (current) use of anticoagulants; Z79.84 Long term (current) use of oral hypoglycemic drugs; Z79.899 Other long term (current) drug therapy; Z85.46 Personal history of malignant neoplasm of prostate; Z96.642 Presence of left artificial hip joint
CPT/HCPCS: 36415; 36600; 70450; 70551; 71045; 71260; 72125; 76705; 78227; 80048; 80053; 80076; 80202; 82077; 82140; 82248; 82607; 82805; 82947; 83540; 83605; 83735; 83880; 84100; 84145; 84439; 84443; 84484; 85025; 85610; 86850; 86900; 86901; 87324; 87804; 87811; 88305; 88311; 92523; 92526; 92610; 93005; 94002; 94003; 94640; 94660; 96365; 96366; 97110; 97116; 97124; 97129; 97161; 97165; 97530; 99285; A4216; A9537; J0360; J0692; J0696; J1630; J1815; J2001; J2371; J2405; J2543; J2704; J2805; J2920; J3010; J3411; J3475; J3486; J7030; J7040; J7050; J7120; J7512; J7613; J7644; P9047; Q9967

== ENCOUNTER 2024-10-01 23:14 | Emergency (ER) | payer OTHER ==
[2024-10-02] MEDS ORDERED: NA CHLORIDE 0.9% 100 ML ONE (00:25)
[2024-10-02] MEDS ORDERED: NA CHLORIDE 0.9% 1,000 ML ONE (00:25)
[2024-10-02] MEDS ORDERED: TDAP (DIPHTH,PERTUSS(ACELL),TET VAC) 0.5 ML VIAL IMVAC ONE (00:25)
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
[2024-10-02] MEDS ORDERED: CEFAZOLIN SODIUM 2 GM/VIAL ONE (00:26)
[2024-10-02 00:32] LABS: Absolute Lymphocytes (CBC) 1.7 K/uL (0.7-4.9); Absolute Monocytes 0.7 K/uL (0.1-1.3); Absolute Neutrophil 4.4 K/uL (1.8-8.0); Basophils % 0.3 % (0-1.3); Eosinophils % 0.7 % (0-4.4); Hematocrit 32.6 % (39.6-49.0); Lymphocytes % 24.7 % (15.3-44.8); MCH 33.4 pg (27.0-35.0); MCHC 33.9 g/dL (32.0-36.0); MCV 98.5 fL (80-100); MPV 9.1 fL (7.6-11.3); Monocytes % 10.6 % (3.3-12.3); Neutrophils % 63.7 % (41.7-73.7); Platelets 174 thou/uL (152-406); RBC Red Blood Cell Count 3.31 M/uL (4.33-5.43)
[2024-10-02 00:43] LABS: PT Prothrombin Time 17.1 SECONDS (9.4-12.5); PTT, Activated Partial Thromb 36.6 SECONDS (24.3-36.9); Protime INR 1.55
[2024-10-02 00:50] LABS: Albumin 2.7 g/dL (3.4-5.0); Albumin/Globulin Ratio 0.7 (1.1-1.8); Anion Gap 7.1 mEq/L (5.0-15.0); Bilirubin Total 0.9 mg/dL (0.2-1.0); Potassium 4.1 mEq/L (3.5-5.1); Protein, Total 6.7 g/dL (6.4-8.2)
--- NOTE | 2024-10-02 01:36 | RAD REPORT ---
Clinical Indication: Bed Name: 3; SWELLING Comparison: None TECHNIQUE: Right lower extremity arterial Doppler evaluation without pressures was performed with kaiser scale, co angelica scale and Doppler waveforms evaluation. FINDINGS: RIGHT LOWER EXTREMITY: Common femoral artery: Biphasic waveform Superficial femoral artery: Proximal: Monophasic waveform with elevated velocity Mid: Monophasic waveform with mild spectral broadening Distal: Monophasic waveform with spectral broadening and slightly elevated velocity Popliteal artery: Monophasic waveform Posterior tibial artery: Monophasic waveform Dorsalis pedis: Monophasic waveform If there is further concern, recommend CTA or magnetic resonance angiography for evaluation. IMPRESSION: 1. 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 2. Findings consistent with inflow disease. Electronically signed by: Ozzie Barrios MD 10/02/2024 01:27 AM [facility] Due to temporary technical issues with the PACS/Power scribe reporting system, reports are being sign ed by the in-house radiologist without review as a courtesy to ensure prompt reporting the interpreting rad iologist is fully responsible for the content of the report. Transcribed Date/Time: 10/02/2024 1:35 AM
[2024-10-02 01:43] VITALS: TEMP 97.7; O2SAT 98
[2024-10-02 01:55] VITALS: BP 126/64
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
--- NOTE | 2024-10-02 13:04 | EKG ---
Test Date: 2024-10-01 Test Time: 23:57:21 Group President: DK MEASUREMENT RESULTS: Intervals: Rate: 84 HI: 166 QRSD: 126 QT: 404 QTc: 477 [place]: P: 59 HI: 166 QRS: 5 T: 48 INTERPRETIVE STATEMENTS: Normal sinus rhythm Right bundle branch block Abnormal ECG Compared to ECG 05/06/2023 02:12:20 Right bundle-branch block now present Sinus tachycardia no longer present Left-axis deviation no longer present Incomplete right bundle-branch block no longer present Myocardial infarct finding no longer present T-wave abnormality no longer present Possible ischemia no longer present Electronically Signed On 10-02-24 13:03:35 BOILER TECHNICIAN by Kofi Cheung
== END 2024-10-02 01:29 | disposition short-term general hospital (02) ==
LOC: ER 23:14
DX: T25.221A Burn of second degree of right foot, initial encounter (principal); E11.9 Type 2 diabetes mellitus without complications; I10 Essential (primary) hypertension; I48.91 Unspecified atrial fibrillation; Z79.01 Long term (current) use of anticoagulants
CPT/HCPCS: 96365; 93005; 87040 ×2; 85025; 36415; 85610; 83605; 85730; 80053; 73630; 93926; 96372; 99285; J7030

== ENCOUNTER 2025-07-25 17:06 | Emergency (ER) | payer OTHER ==
--- NOTE | 2025-07-25 18:03 | RAD REPORT ---
Procedure: Chest Single View HISTORY: Chest pain COMPARISON: 2023 FINDINGS: The lungs appear clear of acute infiltrate. No significant pleural effusion noted. The heart is normal size. PICC line in the SVC. Rod overlie the left upper hemithorax IMPRESSION: No acute abnormality is displayed.
[2025-07-25 18:37] LABS: Absolute Lymphocytes (CBC) 1.8 K/uL (0.7-4.9); Hematocrit 30.3 % (39.6-49.0); Hemoglobin 9.7 g/dL (13.6-17.9); MCH 28.1 pg (27.0-35.0); MCHC 31.9 g/dL (32.0-36.0); MCV 88.1 fL (80-100); MPV 9.1 fL (7.6-11.3); Nucleated RBC Absolute Count 0.0 (0-0); Nucleated Red Blood Cells % 0.0 % (0-0); RBC Red Blood Cell Count 3.44 M/uL (4.33-5.43); White Blood Count 6.90 thou/uL (4.3-10.9)
[2025-07-25 18:42] LABS: PT Prothrombin Time 16.4 SECONDS (10-13.0); Protime INR 1.47
[2025-07-25 18:55] LABS: ALT/SGPT 93.0 U/L (16-61); AST/SGOT 113.0 U/L (15-37); Albumin 2.8 g/dL (3.4-5.0); Albumin/Globulin Ratio 0.7 (1.1-1.8); Alkaline Phosphatase 276.0 U/L (45-117); Anion Gap 9.3 mEq/L (5.0-15.0); BUN Blood Urea Nitrogen 27.0 mg/dL (7-18); Bilirubin Indirect, Calculated 0.1 mg/dL (0.2-0.8); Globulin 4.1 g/dL (2.3-3.5); Glucose Level 76.0 mg/dL (74-106); Magnesium 1.8 mg/dL (1.6-2.4); NT PRO-BNP 67.0 pg/mL (<125); Potassium 5.3 mEq/L (3.5-5.1); Troponin High Sensitivity 3.3 pg/mL (<58.9)
--- NOTE | 2025-07-25 19:09 | EDPHYS ---
Physician Documentation [facility] Name: Jordon Smith Age: 65 yrs Sex: Male : 1960 Arrival Date: 07/25/2025 Time: 17:06 Bed [id number] Private MD: ED Physician Db Benjamin HPI: 07/25 17:26 This 65 yrs old Male presents to ER via Unassigned with complaints of Abnormal Lab sb4 Results. 17:26 Had outpatient labs done yesterday and was notified today that his potassium was sb4 elevated at 6.8. Patient has no complaints at this time. Historical: - Allergies: 17:28 No Known Allergies; dd2 - PMHx: 17:28 AFIB; cardiac arrest; depressive disorder; Diabetes - NIDDM; ETOH; Hypertension; dd2 Seizure; - PSHx: 17:28 Left hip; prostatectomy; Tonsillectomy; RT BKA (Tonsillectomy); LT SHOULDER dd2 (Tonsillectomy); - Immunization history:: Adult Immunizations up to date. - Infectious Disease History:: Denies. - Social history:: Smoking status: Patient denies any tobacco usage or history of. ROS: 17:26 Constitutional: Negative for fever, chills, and weight loss, sb4 17:26 All other systems are negative, Exam: 17:26 Head/Face: Normocephalic, atraumatic. Eyes: Extra-ocular motions intact. Periorbital sb4 areas with no swelling, redness, or edema. ENT: Mucous membranes moist. Respiratory: No increased work of breathing, no retractions or nasal flaring. Skin: Warm, dry with normal turgor. Normal color with no rashes, no lesions, and no evidence of cellulitis. 17:26 Constitutional: The patient appears in no acute distress, alert, awake, Vital Signs: 17:28 BP 135 / 65; Pulse 88; Resp 16; Temp 99.6(O); Pulse Ox 98% on R/A; Pain 6/10; dd2 17:28 Pain Scale: Adult dd2 MDM: 17:06 Medical Screening Exam initiated sb4 19:10 Differential diagnosis: Acute kidney failure, hyperkalemia, lab error. Data reviewed: sb4 vital signs, nurses notes, EMS record, lab test result(s), EKG, radiologic studies, and as a result, I will discharge patient. Consideration of Admission/Observation Escalation of care including admission/observation considered. Care significantly affected by the following chronic conditions: Diabetes, Hypertension. Counseling: I had a detailed discussion with the patient and/or guardian regarding the historical points, exam findings, and any diagnostic results supporting the discharge/admit diagnosis, lab results, radiology results, to return to the emergency department if symptoms worsen or persist or if there are any questions or concerns that arise at home. 19:12 ED course: Potassium is only mildly elevated at 5.3. His troponin is normal no EKG sb4 changes. He is not in kidney failure. Mr. Albuterol and Kayexalate and safely discharge home at this time. Instructed to follow-up with primary care next week to have repeat labs obtained. 07/25 17:06 Order name: Basic Metabolic Panel; Complete Time: 19:03 sb4 07/25 17:06 Order name: CBC with Diff; Complete Time: 18:43 sb4 07/25 17:06 Order name: LFT's; Complete Time: 19:03 sb4 07/25 17:06 Order name: Magnesium; Complete Time: 19:03 sb4 07/25 17:06 Order name: NT PRO-BNP; Complete Time: 19:03 sb4 07/25 17:06 Order name: PT-INR; Complete Time: 18:43 sb4 07/25 17:06 Order name: Troponin HS; Complete Time: 19:03 sb4 07/25 18:51 Order name: Glucose, Ancillary Testing; Complete Time: 19:03 EDMS 07/25 17:06 Order name: XRAY Chest (1 view); Complete Time: 18:07 sb4 07/25 17:06 Order name: Cardiac monitoring; Complete Time: 18:35 sb4 07/25 17:06 Order name: EKG - Nurse/Tech; Complete Time: 18:35 sb4 07/25 17:06 Order name: IV Saline Lock; Complete Time: 18:35 sb4 07/25 17:06 Order name: Labs collected and sent; Complete Time: 18:35 sb4 07/25 17:06 Order name: O2 Per Protocol; Complete Time: 18:35 sb4 07/25 17:06 Order name: O2 Sat Monitoring; Complete Time: 18:35 sb4 EC:10 Rate is 86 beats/min. Rhythm is regular, Normal Sinus Rhythm with Right bundle branch sb4 block. UT interval is normal at 162 msec. QRS interval is normal at 118 msec. QT interval is normal at 396 msec. T waves are Normal. Clinical impression: No evidence of ischemia. Interpreted by me. Reviewed by me. Administered Medications: 19:29 Drug: Albuterol Inhalation 2.5 mg Inhalation once Route: Inhalation; af3 20:46 Follow up: Response: No adverse reaction af3 21:25 Follow up: Response: No adverse reaction af3 20:46 Drug: Kayexalate PO 30 grams PO once Route: PO; af3 21:24 Follow up: Response: No adverse reaction af3 Disposition Summary: 07/25/25 19:08 Discharge Ordered Notes: Location: Home sb4 Problem: new sb4 Symptoms: have improved sb4 Condition: Stable sb4 Diagnosis - Hyperkalemia - mild, 5.2 sb4 Followup: sb4 - With: Emergency Department - When: As needed - Reason: Trouble breathing, Worsening of condition Forms: - Medication Reconciliation Form sb4 - Antibiotic Education sb4 - Prescription Opioid Use sb4 - Patient Portal Instructions sb4 - Leadership Thank You Letter sb4 Signatures: Dispatcher [employer] EDKhadra Oquendo PA-C PA-C sb4 Alyson Garcia RN RN af3 ASHLEY HORNE, RN RN dd2 Corrections: (The following items were deleted from the chart) 17:07 17:07 BASIC METABOLIC PANEL+C.LAB.BRZ ordered. EDMS EDMS 17:07 17:07 CBC+H.LAB.BRZ ordered. EDMS EDMS 17:07 17:07 HEPATIC FUNCTION+C.LAB.BRZ ordered. EDMS EDMS 17:07 17:07 MAGNESIUM+C.LAB.BRZ ordered. EDMS EDMS 17:07 17:07 PROBNP+C.LAB.BRZ ordered. EDMS EDMS 17:07 17:07 PROTIME (+INR)+COAG.LAB.BRZ ordered. EDMS EDMS 17:07 17:07 Troponin High Sensitivity+C.LAB.BRZ ordered. EDMS EDMS 17:07 17:07 Chest Single View+RAD.RAD.BRZ ordered. EDMS EDMS
--- NOTE | 2025-07-25 19:09 | ER ---
Nurse's Notes [facility] Name: Jordon Smith Age: 65 yrs Sex: Male : 1960 Arrival Date: 07/25/2025 Time: 17:06 Bed [id number] Private MD: Diagnosis: Hyperkalemia-mild, 5.2 Presentation: 07/25 17:24 Chief complaint: EMS states: [facility] CALLED EMS FOR K+ RESULTS 6.8. EMS REPORTS dd2 THAT RN ATTEMPTED TO CALL PCP BUT NO REPLY AND CALLED FOR ER TRANSPORT. Coronavirus screen: At this time, the client does not indicate any symptoms associated with coronavirus-19. Ebola Screen: No symptoms or risks identified at this time. Risk Assessment: Do you want to hurt yourself or someone else? Patient reports no desire to harm self or others. Onset of symptoms was July 25, 2025. 17:24 Method Of Arrival: [facility] dd2 17:24 Acuity: ADRY 3 dd2 17:28 Initial Sepsis Screen: Does the patient meet any 2 criteria? No. Patient's initial dd2 sepsis screen is negative. Does the patient have a suspected source of infection? No. Patient's initial sepsis screen is negative. Triage Assessment: 17:28 General: Appears in no apparent distress. uncomfortable, Behavior is calm, cooperative, dd2 appropriate for age. Pain: Complains of pain in anterior aspect of left shoulder. EENT: No deficits noted. No signs and/or symptoms were reported regarding the EENT system. Neuro: No deficits noted. Cardiovascular: No deficits noted. Respiratory: No deficits noted. GI: No deficits noted. No signs and/or symptoms were reported involving the gastrointestinal system. Abdomen is round non-distended. : No deficits noted. No signs and/or symptoms were reported regarding the genitourinary system. Derm: STAPLED INCISION TO LT SHOULDER Reports pain. Musculoskeletal: Amputation of right leg. Circulation, motion, and sensation intact. Range of motion: limited in left shoulder Tenderness present in anterior aspect of left shoulder. Historical: - Allergies: 17:28 No Known Allergies; dd2 - PMHx: 17:28 AFIB; cardiac arrest; depressive disorder; Diabetes - NIDDM; ETOH; Hypertension; dd2 Seizure; - PSHx: 17:28 Left hip; prostatectomy; Tonsillectomy; RT BKA (Tonsillectomy); LT SHOULDER dd2 (Tonsillectomy); - Immunization history:: Adult Immunizations up to date. - Infectious Disease History:: Denies. - Social history:: Smoking status: Patient denies any tobacco usage or history of. Screenin:46 [facility] ED Fall Risk Assessment (Adult) History of falling in the last 3 months, dd2 including since admission Yes- single mechanical fall (1 pt) Confusion or Disorientation No (0 pts) Intoxicated or Sedated No (0 pts) Impaired Gait No (0 pts) Mobility Assist Device Used Yes (1 pt) Altered Elimination No (0 pt) Score/Fall Risk Level 3 or more points = High Risk Oriented to surroundings, Maintained a safe environment, Educated pt \T\ family on fall prevention, incl call for assistance when getting out of bed, Assessed \T\ reinforced patient's understanding of fall precautions, Hourly rounding (assess needs \T\ fall precautionary measures) done, Used ambulatory aids as needed (educated on \T\ assisted with). Abuse screen: Denies threats or abuse. Denies injuries from another. Nutritional screening: No deficits noted. Tuberculosis screening: No symptoms or risk factors identified. Assessment: 17:39 Reassessment: SEE TRIAGE ASSESSMENT FOR FULL ASSESSMENT. dd2 19:10 Reassessment: Discharge pending ride home. af3 Vital Signs: 17:28 BP 135 / 65; Pulse 88; Resp 16; Temp 99.6(O); Pulse Ox 98% on R/A; Pain 6/10; dd2 17:28 Pain Scale: Adult dd2 ED Course: 17:06 Patient arrived in ED. bd 17:06 Khadra Llanes PA-C is PHCP. sb4 17:06 Db Benjamin MD is Attending Physician. sb4 17:28 Triage completed. dd2 17:28 Arm band placed on right wrist. dd2 17:45 XRAY Chest (1 view) In Process Unspecified. EDMS 17:46 Patient has correct armband on for positive identification. Bed in low position. Call dd2 light in reach. Side rails up X2. Client placed on continuous cardiac and pulse oximetry monitoring. NIBP monitoring applied. early childhood lead teacher on. Door closed. Noise minimized. Warm blanket given. Pillow given. Verbal reassurance given. 17:46 No provider procedures requiring assistance completed. Inserted PT HAS PICC TO RT UPPER dd2 ARM. 21:24 Patient did not have IV access during this emergency room visit. af3 Administered Medications: 19:29 Drug: Albuterol Inhalation 2.5 mg Inhalation once Route: Inhalation; af3 20:46 Follow up: Response: No adverse reaction af3 21:25 Follow up: Response: No adverse reaction af3 20:46 Drug: Kayexalate PO 30 grams PO once Route: PO; af3 21:24 Follow up: Response: No adverse reaction af3 Medication: 17:46 VIS not applicable for this client. dd2 Outcome: 19:08 Discharge ordered by . sb4 21:23 Discharged to home via wheelchair, af3 21:23 Condition: stable 21:23 Discharge instructions given to patient, Instructed on discharge instructions, follow up and referral plans. Demonstrated understanding of instructions, follow-up care, 21:24 Patient left the ED. af3 Signatures: Dispatcher [employer] EDMS Hina Casas Sophia, PACristobalC PACristobalC sb4 Alyson Garcia RN RN af3 ASHLEY HORNE RN RN dd2
[2025-07-25] MEDS ORDERED: ALBUTEROL 2.5 MG/3 ML NEB SOL ONE (19:13)
[2025-07-25] MEDS ORDERED: SOD POLYSTYREN SUL 15 GM/60 ML UCUP ONE (19:14)
[2025-07-26 04:25] VITALS: BP 135/65; TEMP 99.6; O2SAT 98
== END 2025-07-25 21:24 | disposition home or self-care (01) ==
LOC: ER 17:06
DX: E87.5 Hyperkalemia (principal); I10 Essential (primary) hypertension; I48.91 Unspecified atrial fibrillation; E11.9 Type 2 diabetes mellitus without complications; I25.2 Old myocardial infarction; Z89.511 Acquired absence of right leg below knee
CPT/HCPCS: 93005; 85025; 80048; 36415; 83735; 85610; 82947; 80076; 84484; 83880; 71045; 99285; J7613

== ENCOUNTER 2025-08-01 15:50 | Emergency (ER) | payer OTHER ==
--- NOTE | 2025-08-01 17:48 | RAD REPORT ---
EXAMINATION: XR Foot Left 3 View CLINICAL INDICATION: Male, 65 years old. [facility] MAIN PAIN Bed Name: 7 TECHNIQUE: 3 view radiographs of the left foot were obtained. COMPARISON: 10/24/2008 FINDINGS: No evidence of fracture or dislocation. Normal alignment. No evidence of arthropathy or oth er focal bone lesion. Soft tissues show small linear radiodense structure at the fourth interdigital web. No soft tissue gas.. Moderate degenerative changes. Small calcaneal spur. IMPRESSION: No acute osseous abnormalities. Linear radiodensity at the level of the fourth interdigital web could represent a small foreign body. Chronic findings as above.
--- NOTE | 2025-08-01 17:52 | ER ---
Nurse's Notes [facility] Name: Jordon Smith Age: 65 yrs Sex: Male : 1960 Arrival Date: 08/01/2025 Time: 15:50 Bed 7 Private MD: Diagnosis: Foot Laceration/ Open wound of foot-superficial Presentation: 08/01 16:15 Chief complaint: Patient states: WOUNDS ON LT FOOT AND LT HEEL. REPORTS HE IS DIABETIC dd2 AND WORRIED ABOUT THE WOUNDS. Coronavirus screen: At this time, the client does not indicate any symptoms associated with coronavirus-19. Ebola Screen: No symptoms or risks identified at this time. Risk Assessment: Do you want to hurt yourself or someone else? Patient reports no desire to harm self or others. Onset of symptoms is unknown. 16:15 Method Of Arrival: Ambulatory dd2 16:15 Acuity: ADRY 3 dd2 16:18 Initial Sepsis Screen: Does the patient meet any 2 criteria? No. Patient's initial dd2 sepsis screen is negative. Does the patient have a suspected source of infection? No. Patient's initial sepsis screen is negative. Triage Assessment: 16:18 General: Appears in no apparent distress. Behavior is calm, cooperative, appropriate dd2 for age. Pain: Denies pain. Derm: Wound noted heel of left foot and dorsum of left foot Wound is SCABBED WOUND TO DORSUM LT FOOT AND CLOSED WOUND TO LT HEEL. NO CHANELLE-WOUND REDNESS OR DRAINAGE NOTED. Historical: - Allergies: 16:18 No Known Allergies; dd2 - PMHx: 16:18 AFIB; cardiac arrest; depressive disorder; Diabetes - NIDDM; ETOH; Hypertension; dd2 Seizure; - PSHx: 16:18 Left hip; LT SHOULDER (le); prostatectomy; RT BKA (le); Tonsillectomy; dd2 - Immunization history:: Adult Immunizations unknown. - Infectious Disease History:: Denies. - Social history:: Smoking status: Patient denies any tobacco usage or history of. Screenin:39 [facility] ED Fall Risk Assessment (Adult) History of falling in the last 3 months, ph including since admission No falls in past 3 months (0 pts) Confusion or Disorientation No (0 pts) Intoxicated or Sedated No (0 pts) Impaired Gait Yes (1 pt) Mobility Assist Device Used Yes (1 pt) Altered Elimination No (0 pt) Score/Fall Risk Level 0 - 2 = Low Risk Oriented to surroundings, Maintained a safe environment, Hourly rounding (assess needs \T\ fall precautionary measures) done. Abuse screen: Denies threats or abuse. Denies injuries from another. Nutritional screening: No deficits noted. Tuberculosis screening: No symptoms or risk factors identified. Assessment: 17:38 General: Appears in no apparent distress. Behavior is calm, cooperative. Pain: Denies ph pain. Neuro: Level of Consciousness is awake, alert, obeys commands, Oriented to person, place, time, situation. Cardiovascular: Capillary refill < 3 seconds in bilateral fingers. Respiratory: Airway is patent Respiratory effort is even, unlabored, Respiratory pattern is regular, symmetrical. Derm: Skin is pink, warm \T\ dry. Derm: Wound noted dorsum of left foot and heel of left foot. Vital Signs: 16:18 BP 122 / 59; Pulse 86; Resp 16; Temp 98.4; Pulse Ox 100% ; Pain 0/10; dd2 19:22 BP 141 / 75; Pulse 66; Resp 19; Pulse Ox 97% on R/A; tb4 16:18 Pain Scale: Adult dd2 ED Course: 15:53 Patient arrived in ED. im 16:00 Shefali Snell FNP-C is [facility]. kb 16:00 Bony Langston DO is Attending Physician. kb 16:18 Triage completed. dd2 16:18 Arm band placed on right wrist. dd2 16:48 Patient placed in an exam room, on a stretcher. ll1 17:21 Foot Left 3 View XRAY In Process Unspecified. EDMS 17:39 Patient has correct armband on for positive identification. Bed in low position. Call ph light in reach. Side rails up X 1. Pulse ox on. NIBP on. Door closed. Noise minimized. 19:22 Provided Education on: Follow up with primary care. tb4 19:22 No provider procedures requiring assistance completed. tb4 19:39 Patient did not have IV access during this emergency room visit. Dressings: Kerlix X 3; tb4 medial aspect of left heel and dorsum of left foot. Administered Medications: No medications were administered Medication: 17:39 VIS not applicable for this client. ph Outcome: 17:51 Discharge ordered by . kb 19:40 Discharged to home via wheelchair, tb4 19:40 Condition: stable 19:40 Discharge instructions given to patient, Instructed on discharge instructions, follow up and referral plans. Demonstrated understanding of instructions, follow-up care, 19:40 Patient left the ED. tb4 Signatures: Dispatcher [employer] EDMS Shefali Snell, ANGELA SUAREZ-Tali Matt RN RN Giovana Alas, RN RN ll1 Oly Vallecillo DIANA, RN RN dd2 Raquel Llanes RN RN tb4
--- NOTE | 2025-08-01 17:52 | EDPHYS ---
Physician Documentation [facility] Name: Jordon Smith Age: 65 yrs Sex: Male : 1960 Arrival Date: 08/01/2025 Time: 15:50 Bed 7 Private MD: ED Physician Bony Langston HPI: 08/01 17:36 This 65 yrs old Male presents to ER via Ambulatory with complaints of Wound Check. kb 17:36 Patient is a 65-year-old male who presents for wound to left foot that he noticed about kb 4 days ago. Denies pain or fever. States he was concerned because he is a diabetic and he wanted to get it evaluated. Patient is currently getting IV antibiotics through PICC line for an infection in his shoulder.. Historical: - Allergies: 16:18 No Known Allergies; dd2 - PMHx: 16:18 AFIB; cardiac arrest; depressive disorder; Diabetes - NIDDM; ETOH; Hypertension; dd2 Seizure; - PSHx: 16:18 Left hip; LT SHOULDER (le); prostatectomy; RT BKA (le); Tonsillectomy; dd2 - Immunization history:: Adult Immunizations unknown. - Infectious Disease History:: Denies. - Social history:: Smoking status: Patient denies any tobacco usage or history of. ROS: 17:37 Constitutional: As per HPI kb Exam: 17:37 Constitutional: This is a well developed, well nourished patient who is awake, alert, kb and in no acute distress. Head/Face: Normocephalic, atraumatic. ENT: Moist Mucous membranes Respiratory: Respirations even and unlabored. No increased work of breathing. Talking in full sentences MS/ Extremity: Pulses equal, no cyanosis. Neurovascular intact. Full, normal range of motion. Neuro: Awake and alert, GCS 15, oriented to person, place, time, and situation. 17:37 Skin: Superficial open wound to left heel without erythema, warmth, swelling or drainage. Vital Signs: 16:18 BP 122 / 59; Pulse 86; Resp 16; Temp 98.4; Pulse Ox 100% ; Pain 0/10; dd2 19:22 BP 141 / 75; Pulse 66; Resp 19; Pulse Ox 97% on R/A; tb4 16:18 Pain Scale: Adult dd2 MDM: 16:08 Medical Screening Exam initiated kb 19:26 Differential diagnosis: cellulitis, Wound infection, osteomyelitis. Data reviewed: kb vital signs, nurses notes. Test considered but Not performed: Labs: CBC, CMP, blood cultures, lactate considered but patient is afebrile, nontoxic in appearance, vital signs within normal limits. No signs of infection to wounds and patient is currently receiving IV antibiotics through PICC at home. Patient educated to keep a close watch on the wounds and follow-up with wound care and/or podiatry. Counseling: I had a detailed discussion with the patient and/or guardian regarding the historical points, exam findings, and any diagnostic results supporting the discharge/admit diagnosis, radiology results, the need for outpatient follow up, a family practitioner, to return to the emergency department if symptoms worsen or persist or if there are any questions or concerns that arise at home. 08/01 16:56 Order name: Foot Left 3 View XRAY; Complete Time: 17:51 kb 08/01 16:21 Order name: Wound Care; Complete Time: 19:37 kb Administered Medications: No medications were administered Disposition: 17:41 I was immediately available on-site in the Emergency Department for consultation in the ms3 care of the patient. Disposition Summary: 08/01/25 17:51 Discharge Ordered Notes: Location: Home kb Condition: Stable kb Diagnosis - Foot Laceration/ Open wound of foot - superficial kb Followup: kb - With: Private Physician - When: 2 - 3 days - Reason: Recheck today's complaints, Continuance of care, Re-evaluation by your physician Followup: kb - With: Emergency Department - When: As needed - Reason: Worsening of condition Discharge Instructions: - Discharge Summary Sheet kb - Wound Care, Adult kb Forms: - Medication Reconciliation Form kb - Antibiotic Education kb - Prescription Opioid Use kb - Patient Portal Instructions kb - Leadership Thank You Letter kb Signatures: Dispatcher [employer] Shefali Sanchez, ANGELA SUAREZ-Bony Downs DO DO ms3 ASHLEY HORNE RN RN dd2
[2025-08-01 22:30] VITALS: TEMP 98.4
[2025-08-01 22:31] VITALS: BP 141/75; O2SAT 97
== END 2025-08-01 19:40 | disposition home or self-care (01) ==
LOC: ER 15:50
DX: S91.302A Unspecified open wound, left foot, initial encounter (principal); E11.9 Type 2 diabetes mellitus without complications; Z89.511 Acquired absence of right leg below knee
CPT/HCPCS: 99283